=== PATIENT | male | born 1955 | race Caucasian/White ===

== ENCOUNTER 2019-07-07 19:57 | Emergency (ER) | payer MEDICARE, SELFPAY ==
--- NOTE | ~2019-07-07 | CT_ITS ---
EXAMINATION: CT abdomen pelvis wo con DATE: 07/07/2019 20:35 INDICATION: Right flank pain TECHNIQUE: Computed tomography (CT) of the abdomen and pelvis was performed without intravenous contr ast. The dose-length product (DLP) was 420.64 mGy-cm. Automated exposure control and iterative recons truction technique were employed. COMPARISON: 02/02/2019 FINDINGS: Minimal dependent atelectasis is present in the lung bases. The heart size is normal. The g allbladder is surgically absent. The liver, spleen, pancreas, and adrenal glands are normal. There is a 2.9 cm cyst of the left kidney upper pole. No stones are identified in the kidneys, ureters, or bl adder. There is no hydronephrosis or hydroureter. A moderate volume of colonic stool is present. No p athologically enlarged abdominal or pelvic lymph nodes are identified. There is no free intraperitone al gas or evidence of bowel obstruction. There has been revision of the penile implant with the reser voir now seen in the left pelvis. There is severe lumbar spondylosis. The appendix is normal. IMPRESSION: 1. No CT correlate for the patient's symptoms. Reviewed, dictated and finalized at location A.
[2019-07-07 19:58] VITALS: BP 143/81; PULSE 89; RESP 18; TEMP 36.3; O2SAT 97
--- NOTE | 2019-07-07 20:00 | PC.NURSE ---
Patient taken to room 10 from triage, report to Ирина.
--- NOTE | 2019-07-07 20:05 | ED.BACK ---
HPI - Back Pain/Injury General Chief Complaint: Back Pain/Injury Stated Complaint: R flank pain Time Seen by Provider: 07/07/19 20:01 Source: patient and RN notes reviewed Mode of arrival: other Limitations: no limitations History of Present Illness HPI Narrative: Pt is a 64 y/o male who presents to the ED with c/o right flank pain that began 3-4 days ago. Pt states that his pain initially began as intermittent, but today his pain has been more constant. Pt denies having a hx of kidney stones and he denies having a similar episode. Pt is able to ambulate. Pt took Morphine 15 mg, but with no relief of his pain. He also denies his pain radiating to another location. Pt also reports dysuria, constipation, and diarrhea d/t his medication, but he denies fever, cough, chest congestion, chest pain, hematuria, vomiting, weakness, numbness, and testicular pain. MD elicited complaint: other (flank pain) Onset (ago): day(s) (3-4) Timing: constant (today) Location: right flank Radiation: none Relieving factors: none Associated symptoms: dysuria and other (diarrhea d/t his medication, constipation) Treatments prior to arrival: other medications (Morphine 15 mg) Related Data Home Medications Medication Instructions Recorded Confirmed cilostazol 100 mg PO BID 03/09/19 03/30/19 morphine 15 mg PO QID 03/09/19 03/30/19 Allergies Allergy/AdvReac Type Severity Reaction Status Date / Time bee venom protein (honey bee) Allergy Unknown Nausea and Verified 07/07/19 20:05 Vomiting iodine Allergy Unknown FACIAL Verified 07/07/19 20:05 SWELLING,ITCHING Contrast Media Allergy Intermediate FACIAL Uncoded 07/07/19 20:05 SWELLING, ITCHING, AND REDNESS Review of Systems Review of Systems: Narrative: CONSTITUTIONAL: Denies fever. CARDIOVASCULAR: Denies chest pain. RESPIRATORY: Denies cough and chest congestion. GASTROINTESTINAL: Reports constipation and diarrhea d/t his medication. Denies vomiting. GENITOURINARY: Reports dysuria and right flank pain. Denies hematuria and testicular pain. NEUROLOGIC: Denies numbness and weakness. All systems reviewed & are unremarkable except as noted in HPI and below PMFSH Past Medical History Medical History (Updated 07/07/19 @ 22:07 by Karo Braga MD) Anxiety Bronchitis Cataracts, bilateral CVA (cerebrovascular accident) DDD (degenerative disc disease) Depression Diverticulitis GERD (gastroesophageal reflux disease) H/O prostate cancer Hiatal hernia HLD (hyperlipidemia) Hypertension Lesion of ureter Lumbar stenosis Lumbar vertebral fracture Melena Migraines Neuropathy Normal colonoscopy (~2009) Pacemaker Peripheral neuropathy Pneumonia Right wrist fracture Seasonal allergies Sleep apnea Ulcer UTI (urinary tract infection) Surgical History Surgical History (Updated 07/07/19 @ 20:28 by Rena Hernandez) H/O right knee surgery H/O spinal fusion C4-C7-T1 History of appendectomy History of orthopedic surgery cleft hand, bilateral shoulder, left 3rd finger, jaw History of penile implant History of repair of hiatal hernia Hx of cholecystectomy Hx of tonsillectomy Knee joint replacement status S/P TURP (transurethral resection of prostate) Social History Social History Smoking status: Former smoker (1ppd for 20 years stopped 2009.) Tobacco type: cigarettes Second hand tobacco smoke exposure: Yes Smoking end date: 04/05/06 Alcohol intake: never Substance use: never Gender identity (if verbalized by the patient): Male Spiritual care concerns: No Agree to blood products: No Exam Narrative: Exam Narrative: CONSTITUTIONAL: Awake, alert, conservant EYES: Normocephalic, atraumatic. ENT: EOMI, conjunctiva clear CARDIOVASCULAR: Nares patent. Mucous membranes moist. NECK: Full range of motion RESPIRATORY: No respiratory distress, speaking in full sentences, no tachypnea HEART: Regular rat
[2019-07-07 20:06] VITALS: BP 148/78; PULSE 89; RESP 19; TEMP 36.4; O2SAT 98
[2019-07-07] MEDS: MORPHINE SULFATE 4 MG/ML INJ IV PUSH ×2 (20:19→21:17)
[2019-07-07] MEDS: ONDANSETRON INJ 4 MG/2 ML VIAL IV PUSH (20:19)
[2019-07-07] MEDS: SODIUM CHLORIDE 0.9% IV 1,000 ML 999 ML IV CONT (20:20)
[2019-07-07 20:21] LABS: Basophils Absolute Auto 0.1 K/mm3 (0.0-0.1); Basophils Percent Auto 1.1 % (0.2-1.2); Eosinophils Absolute Auto 0.2 K/mm3 (0-0.3); Eosinophils Percent Auto 2.2 % (0-4.4); Hematocrit 41.8 % (42.0-52.0); Hemoglobin 13.7 g/dL (14.0-18.0); Immature Granulocyte Absolute 0.06 K/mm3 (0.00-0.031); Immature Granulocyte Percent A 0.7 % (0-0.5); Lymphocytes Absolute Auto 1.84 K/mm3 (0.9-3.2); Lymphocytes Percent Auto 21.7 % (18.3-44.2); Mean Corpuscular HGB Conc 32.8 g/dl (32-36); Mean Corpuscular Hemoglobin 30.6 pg (26-34); Mean Corpuscular Volume 93.5 fl (80-100); Mean Platelet Volume 10.7 fl (7.4-10.4); Monocytes Absolute Auto 0.8 K/mm3 (0.1-0.6); Monocytes Percent Auto 9.2 % (2.6-8.5); Neutrophils Absolute Auto 5.5 K/mm3 (1.3-6.7); Neutrophils Percent Auto 65.1 % (45.5-73.1); Platelet Count Result 175 k/mm3 (150-375); Red Blood Count 4.47 M/mm3 (4.6-6.20); Red Cell Distribution Width 13.8 % (11.5-14.5); White Blood Count 8.5 K/mm3 (4.5-10.0)
[2019-07-07 20:25] LABS: RBC Urine 0-2 /hpf (0-2); Squamous Epithelial Cell Urine Occasional /hpf (Few); WBC Urine 0-3 /hpf
[2019-07-07 20:26] LABS: Add Urine Microscopic? YES; Appearance Urine Clear (Clear); Bilirubin Urine Negative (Negative); Blood Urine Negative (Negative); Color Urine Yellow (Yellow); Glucose Urine UA Negative (Negative); Ketones Urine Negative (Negative); Leukocyte Esterase Ur Negative LEU/UL (Negative); Nitrate Urine Negative (Negative); Protein Urine Negative (Negative); Specific Grav Ur 1.012 (1.001-1.035)
[2019-07-07 20:33] LABS: Alanine Aminotransferase 24 U/L (4-50); Albumin Level 4.1 g/dL (3.5-5.1); Alkaline Phosphatase 75 U/L (38-126); Aspartate Amino Transferase 26 U/L (17-59); Bilirubin,Total 0.3 mg/dL (0.2-1.3); Blood Urea Nitrogen 13 mg/dL (9-20); Carbon Dioxide 33 mmol/L (22-30); Chloride 102 mmol/L (98-107); Estimated CRCL calculation 65 ml/min; Estimated Glomerular Filt Rate > 60; Glucose 91 mg/dL (75-110); Lipase 115 U/L (23-300); Potassium 3.8 mmol/L (3.4-5.0); Sodium 137 mmol/L (137-145)
[2019-07-07 21:17] VITALS: BP 122/78; PULSE 77; RESP 18; O2SAT 99
== END 2019-07-07 22:15 | disposition home or self-care (01) ==
PROVIDERS: Emergency Provider Emergency Medicine; PCP Family Medicine
DX: S39.012A Strain of muscle, fascia and tendon of lower back, initial encounter (principal); Z86.73 Personal history of transient ischemic attack (TIA), and cerebral infarction without residual deficits; K21.9 Gastro-esophageal reflux disease without esophagitis; Z85.46 Personal history of malignant neoplasm of prostate; E78.5 Hyperlipidemia, unspecified; I10 Essential (primary) hypertension; Z95.0 Presence of cardiac pacemaker; G62.9 Polyneuropathy, unspecified; Z87.440 Personal history of urinary (tract) infections; G47.30 Sleep apnea, unspecified; Z98.1 Arthrodesis status; Z96.659 Presence of unspecified artificial knee joint; Z87.891 Personal history of nicotine dependence; X58.XXXA Exposure to other specified factors, initial encounter
CPT/HCPCS: 36415; 74176; 80053; 81001; 83690; 85025; 96361; 96374; 96375; 96376; 99284; J0131; J2270; J2405; J7030

== ENCOUNTER 2019-08-23 11:45 | Outpatient (CLI) | payer MEDICARE, SELFPAY ==
--- NOTE | ~2019-08-23 | XR_ITS ---
EXAMINATION: XR knee LT 3V DATE: 08/23/2019 12:08 INDICATION: Left knee pain post fall TECHNIQUE: Anteroposterior, sunrise and crosstable lateral views of the left knee were obtained COMPARISON: None. FINDINGS: Alignment is normal. No fracture. Joint spaces appear normal. No joint effusion/layering lipohemarth rosis. Enthesophyte at the proximal pole of the patella. Soft tissues are unremarkable. IMPRESSION: 1. No left knee joint effusion or acute osseous abnormality. Reviewed, dictated and finalized at location A.
--- NOTE | ~2019-08-23 | XR_ITS ---
EXAMINATION: XR lumbar spine 2-3V DATE: 08/23/2019 12:08 INDICATION: Low back pain TECHNIQUE: Anteroposterior and lateral views of the lumbar spine, and cone-down lateral view of the l umbosacral junction were obtained. COMPARISON: 07/12/2017 FINDINGS: There is unchanged severe loss of intervertebral disc space height at L4-5 and L5-S1. No fr acture is identified. The vertebral body heights and alignment are maintained. There is advanced face t osteoarthritis of the lower lumbar spine. Phleboliths are noted in the pelvis. The bowel gas patter n is normal. Cholecystectomy clips are noted in the right upper quadrant. Penile implant hardware is noted. IMPRESSION: 1. Severe lumbar spondylosis without acute findings or significant interval change. Reviewed, dictated and finalized at location A. IMPRESSION: 1. Severe lumbar spondylosis without acute findings or significant interval clinton nge.
--- NOTE | ~2019-08-23 | XR_ITS ---
EXAMINATION: XR hip LT 2V w AP pelvis DATE: 08/23/2019 12:08 INDICATION: Left hip pain post fall TECHNIQUE: Anteroposterior view of the pelvis and anteroposterior and frog-leg lateral views of the l eft hip were obtained. COMPARISON: None. FINDINGS: Alignment is normal. No fracture. Bilateral hip joint spaces are relatively preserved. Mild bilateral sacroiliac osteoarthritis. Severe lower lumbar spondylosis. Penile implant. IMPRESSION: 1. No acute osseous abnormality. Reviewed, dictated and finalized at location A.
== END 2019-08-23 11:46 | disposition home or self-care (01) ==
LOC: ANHIMG 11:49
PROVIDERS: PCP Family Medicine; Visit Provider Physician Assistant
DX: M54.5 Low back pain (principal); M47.896 Other spondylosis, lumbar region
CPT/HCPCS: 72100; 73502; 73562

== ENCOUNTER 2019-10-30 09:10 | Emergency (ER) | payer MEDICARE, SELFPAY ==
--- NOTE | ~2019-10-30 | CT_ITS ---
EXAMINATION: CT abdomen pelvis wo con DATE: 10/30/2019 10:44 INDICATION: Constipation. Chronic abdominal pain. TECHNIQUE: Computed tomography (CT) of the abdomen and pelvis was performed without intravenous contr ast. Automated exposure control and iterative reconstruction technique were employed. The dose-length product was 362.70 mGy-cm. COMPARISON: CT abdomen and pelvis 07/07/2019 FINDINGS: The visualized portions of the lung bases demonstrate mild atelectasis and mild bronchiecta sis. No pleural effusion. The heart size is normal. There are coronary artery calcifications. There a re pacer wires in right atrium and right ventricle. No pericardial effusion. There is a 6 mm cyst in the liver. There are changes of cholecystectomy. The spleen, pancreas, adrenal glands, and right kidn ey are normal. There is a 2.3 cm cyst in left kidney. There is no urolithiasis. A penile prosthesis i s noted. There is diverticulosis of the colon without evidence of diverticulitis. There are no dilate d loops of bowel. The appendix is normal. There are no pathologically enlarged lymph nodes. There is no free intraperitoneal fluid. There is lumbar dextroscoliosis and severe lower lumbar spondylosis. T here are bridging endplate osteophytes at multiple levels in the spine, consistent with diffuse idiop athic skeletal hyperostosis (DISH). IMPRESSION: 1. No etiology for the patient's symptoms. Reviewed, dictated and finalized at location A.
[2019-10-30 09:37] VITALS: BP 106/65; PULSE 97; RESP 16; TEMP 36.6; O2SAT 100
[2019-10-30 09:42] VITALS: BP 113/78; PULSE 75; RESP 16; O2SAT 100
[2019-10-30 09:45] LABS: Basophils Absolute Auto 0.1 K/mm3 (0.0-0.1); Basophils Percent Auto 1.4 % (0.2-1.2); Eosinophils Absolute Auto 0.1 K/mm3 (0-0.3); Eosinophils Percent Auto 0.7 % (0-4.4); Hematocrit 43.6 % (42.0-52.0); Hemoglobin 14.4 g/dL (14.0-18.0); Immature Granulocyte Absolute 0.03 K/mm3 (0.00-0.031); Immature Granulocyte Percent A 0.4 % (0-0.5); Lymphocytes Absolute Auto 1.05 K/mm3 (0.9-3.2); Lymphocytes Percent Auto 14.4 % (18.3-44.2); Mean Corpuscular Hemoglobin 30.3 pg (26-34); Mean Corpuscular Volume 91.8 fl (80-100); Mean Platelet Volume 10.9 fl (7.4-10.4); Monocytes Absolute Auto 0.4 K/mm3 (0.1-0.6); Monocytes Percent Auto 4.8 % (2.6-8.5); Neutrophils Absolute Auto 5.7 K/mm3 (1.3-6.7); Neutrophils Percent Auto 78.3 % (45.5-73.1); Platelet Count Result 187 k/mm3 (150-375); Red Blood Count 4.75 M/mm3 (4.6-6.20); Red Cell Distribution Width 14.3 % (11.5-14.5); White Blood Count 7.3 K/mm3 (4.5-10.0)
[2019-10-30 09:58] LABS: Alanine Aminotransferase 12 U/L (4-50); Albumin Level 3.9 g/dL (3.5-5.1); Alkaline Phosphatase 87 U/L (38-126); Anion Gap 11.9 mmol/L (7-16); Aspartate Amino Transferase 26 U/L (17-59); Bilirubin,Total 0.5 mg/dL (0.2-1.3); Blood Urea Nitrogen 9 mg/dL (9-20); Calcium 8.5 mg/dL (8.4-10.2); Carbon Dioxide 25 mmol/L (22-30); Chloride 101 mmol/L (98-107); Estimated CRCL calculation 73 ml/min; Estimated Glomerular Filt Rate > 60; Glucose 107 mg/dL (75-110); Lipase 35 U/L (23-300); Potassium 3.9 mmol/L (3.4-5.0); Sodium 134 mmol/L (137-145)
[2019-10-30 10:04] LABS: Add Urine Microscopic? NO; Appearance Urine Clear (Clear); Bilirubin Urine Negative (Negative); Blood Urine Negative (Negative); Color Urine Yellow (Yellow); Glucose Urine UA Negative (Negative); Ketones Urine Negative (Negative); Leukocyte Esterase Ur Negative LEU/UL (Negative); Nitrate Urine Negative (Negative); Protein Urine Negative (Negative); Specific Grav Ur 1.013 (1.001-1.035); Urobilinogen Urine Negative mg/dL (<2.0)
[2019-10-30 10:30] VITALS: PULSE 107; RESP 18; O2SAT 94
--- NOTE | 2019-10-30 10:35 | ED.ABDPAIN ---
HPI - Abdominal Pain General Chief Complaint: Abdominal Pain Stated Complaint: CONSTIPATED Time Seen by Provider: 10/30/19 10:03 History of Present Illness HPI narrative: Patient presents with his for left lower abdominal pain. She has had this for several days. He thinks he has a bowel obstruction. He takes chronic narcotics for his chronic pain, and has had severe constipation in the past. He has been taking [id number] laxatives without improvement. He says he has some liquid stool. He has no fever chills or sweats. He has not been sick. He has no nausea or vomiting. He has not tried MiraLAX in the past. He has a surgical history of multiple cervical fusions, and cholecystectomy. He does not smoke cigarettes, drink alcohol, or do drugs. MD elicited complaint: abdominal pain Pertinent past history: constipation Onset (ago): day(s) Pain Consistency: intermittent Location: RLQ Exacerbating factors: nothing Relieving factors: nothing Related Data Home Medications Medication Instructions Recorded Confirmed cilostazol 100 mg PO BID 03/09/19 09/14/19 morphine 15 mg PO QID 03/09/19 09/14/19 Allergies Allergy/AdvReac Type Severity Reaction Status Date / Time bee venom protein (honey bee) Allergy Unknown Nausea and Verified 10/30/19 09:36 Vomiting iodine Allergy Unknown FACIAL Verified 10/30/19 09:36 SWELLING,ITCHING Contrast Media Allergy Intermediate FACIAL Uncoded 10/30/19 09:36 SWELLING, ITCHING, AND REDNESS Review of Systems Review of Systems: Narrative: CONSTITUTIONAL: Denies fever, chills, or sweats. EYES: Denies visual changes, redness, or discharge. ENT: Denies rhinorrhea, congestion, sore throat, or otalgia. CARDIOVASCULAR: Denies chest pain, palpitations, or edema. RESPIRATORY: Denies cough or dyspnea. GASTROINTESTINAL: He has abdominal pain, but not nausea, vomiting. GENITOURINARY: Denies dysuria or hematuria. SKIN: Denies rash or itching. MUSCULOSKELETAL: Denies back pain, joint pain, or myalgia. NEUROLOGIC: Denies headache, numbness, or weakness. PSYCHIATRIC: Denies anxiety or depression. All systems reviewed & are unremarkable except as noted in HPI and below PMFSH Past Medical History Medical History Anxiety Bronchitis Cataracts, bilateral CVA (cerebrovascular accident) DDD (degenerative disc disease) Depression Diverticulitis Fall (on) (from) other stairs and steps, initial encounter GERD (gastroesophageal reflux disease) H/O non anemic vitamin B12 deficiency H/O prostate cancer Hiatal hernia HLD (hyperlipidemia) Hypertension Lesion of ureter Lumbar stenosis Lumbar vertebral fracture Melena Migraines Neuropathy Normal colonoscopy (~2009) Osteoporosis Pacemaker Peripheral neuropathy Pneumonia Right wrist fracture Seasonal allergies Sleep apnea Ulcer UTI (urinary tract infection) Vision abnormalities Surgical History Surgical History H/O right knee surgery H/O spinal fusion C4-C7-T1 History of appendectomy History of orthopedic surgery cleft hand, bilateral shoulder, left 3rd finger, jaw History of penile implant History of repair of hiatal hernia Hx of cholecystectomy Hx of tonsillectomy Knee joint replacement status S/P TURP (transurethral resection of prostate) Social History Social History Smoking status: Former smoker (1ppd for 20 years stopped 2009.) Tobacco type: cigarettes Second hand tobacco smoke exposure: Yes Smoking end date: 04/05/06 Alcohol intake: never Substance use: never Gender identity (if verbalized by the patient): Male Spiritual care concerns: No Agree to blood products: No Exam Narrative: Exam Narrative: GENERAL: Elderly man in no distress. HEAD: Normocephalic, atraumatic. EYES: PERRLA and EOMI. ENT: Nares clear, no rhinorrhea or epistax
--- NOTE | 2019-10-30 10:38 | PC.NURSE ---
ATTEMPTED TO MEDICATE PT PRIOR TO CT SCAN, PT STATES THAT HE WANTS THE CT SCAN FIRST AND WILL TAKE THE MEDICINE UPON HIS RETURN, [employer] AT BEDSIDE, PT TO CT IN STRETCHER AT THIS TIME.
[2019-10-30] MEDS: MAGNESIUM CITRATE 300 ML BTL PO (10:53)
[2019-10-30] MEDS: KETOROLAC 15 MG/ML VIAL (*BKC) IV PUSH (10:55)
[2019-10-30 11:19] VITALS: BP 138/86; PULSE 96; RESP 17; O2SAT 99
== END 2019-10-30 11:20 | disposition home or self-care (01) ==
PROVIDERS: Emergency Provider Emergency Medicine; PCP Family Medicine
DX: K59.09 Other constipation (principal); Z86.73 Personal history of transient ischemic attack (TIA), and cerebral infarction without residual deficits; K21.9 Gastro-esophageal reflux disease without esophagitis; Z85.46 Personal history of malignant neoplasm of prostate; E53.8 Deficiency of other specified B group vitamins; E78.5 Hyperlipidemia, unspecified; I10 Essential (primary) hypertension; G62.9 Polyneuropathy, unspecified; G47.30 Sleep apnea, unspecified; Z87.440 Personal history of urinary (tract) infections; Z98.1 Arthrodesis status; Z96.659 Presence of unspecified artificial knee joint; Z87.891 Personal history of nicotine dependence
CPT/HCPCS: 36415; 74176; 80053; 81003; 83690; 85025; 96374; 99284; A9270; J1885

== ENCOUNTER 2019-12-08 16:50 | Emergency (ER) | payer MEDICARE, SELFPAY ==
--- NOTE | ~2019-12-08 | XR_ITS ---
XR knee RT 3V DATE: 12/08/2019 18:51 INDICATION: Fall. Medial pain, posterior bruising TECHNIQUE: 3 portable views COMPARISON: None FINDINGS: No fracture or dislocation or joint effusion. There is enthesopathy of the superior pole of the patella at the quadriceps tendon insertion. No radiopaque intra-articular loose body or chondrocalcinosis. Joint spaces are well preserved. IMPRESSION: No fracture or dislocation or joint effusion Reviewed, dictated and finalized at location A.
--- NOTE | ~2019-12-08 | CT_ITS ---
EXAMINATION: CT brain wo con DATE: 12/08/2019 18:00 INDICATION: Syncopal episode today TECHNIQUE: Computed tomography (CT) of the head was performed without intravenous contrast. The mA wa s adjusted according to patient size. Iterative reconstruction technique was employed. Exam dose: 60 5.33 mGy-cm total exam DLP. COMPARISON: 12/23/2018 CT brain FINDINGS: The examination is limited due to motion artifact. Bilateral carotid siphon internal carotid artery calcifications. No intracranial mass lesion or hemorrhage or cerebrovascular accident is evident. No midline shift or mass effect. No subdural or epidural hematoma. Normal ventricular size. No fracture or bone destruction of the cranial vault. Mucous retention cyst or polyp of the anterolateral right maxillary sinus. The paranasal sinuses and mastoid air cells are otherwise unremarkable. No fracture or bone destruction of the cranial vault. IMPRESSION: Cerebral atherosclerosis No acute intracranial finding Reviewed, dictated and finalized at Location A. Reviewed, dictated and finalized at location A.
--- NOTE | ~2019-12-08 | XR_ITS ---
XR chest 1V portable DATE: 12/08/2019 18:05 INDICATION: Syncopal event. Hypertension. TECHNIQUE: AP chest COMPARISON: 12/24/2018 PA and lateral chest FINDINGS: Left-sided pacemaker device is again noted, leads unchanged in position since 12/24/2018. He art size is within normal range. Aortic arch calcification, calcification of the descending thoracic aorta. No pulmonary infiltrate or consolidation, pleural effusion or pulmonary vascular congestion or pneumo thorax. Status post anterior and posterior cervical spine surgical fusion. There is moderate osteopenia. Diffuse idiopathic skeletal hyperostosis of the thoracic spine. Surgical clips, right upper quadrant, consistent with cholecystectomy. IMPRESSION: No active cardiopulmonary disease. Reviewed, dictated and finalized at location A.
--- NOTE | 2019-12-08 16:52 | ECG_ITS ---
Measurements Intervals [place] Rate: 108 P: 40 AR: 181 QRS: -5 QRSD: 86 T: 47 QT: 323 QTc: 433 Interpretive Statements SINUS TACHYCARDIA ABNORMAL ECG Electronically Signed On 12-09-2019 6:43:18 CDT by Wenceslao Ellsworth D.O.
[2019-12-08 16:53] VITALS: BP 111/69; PULSE 108; RESP 21; TEMP 36.7; O2SAT 99
[2019-12-08 17:23] LABS: Alveolar/Arterial O2 Gradient 38.2 mmHg; Base Excess ABG 0.4 mEq/l (+/-2.0); Fractional Inspired Oxygen 21 %; HCO3 ABG 24.7 mEq/l (22.0-26.0); Oxygen Content ABG 15.9 %vol (16.0-22.0); Oxygen Saturation ABG 93.3 % (95.0-100.0); Oxyhemoglobin 88.1 % THb (90.0-100.0); PCO2 ABG 38.7 mmHg (35.0-45.0); PO2 ABG 65.2 mmHg (80.0-100.0); Total Hemoglobin 12.8 g/dL (12.0-18.0); pH ABG 7.423 (7.350-7.450)
[2019-12-08 17:24] LABS: Device ROOM AIR; Site Drawn LEFT BRACHIAL
[2019-12-08 17:42] LABS: Basophils Absolute Auto 0.1 K/mm3 (0.0-0.1); Basophils Percent Auto 1.2 % (0.2-1.2); Eosinophils Absolute Auto 0.6 K/mm3 (0-0.3); Eosinophils Percent Auto 5.3 % (0-4.4); Hematocrit 35.5 % (42.0-52.0); Hemoglobin 11.9 g/dL (14.0-18.0); Immature Granulocyte Absolute 0.07 K/mm3 (0.00-0.031); Immature Granulocyte Percent A 0.7 % (0-0.5); Lymphocytes Absolute Auto 1.35 K/mm3 (0.9-3.2); Lymphocytes Percent Auto 12.8 % (18.3-44.2); Mean Corpuscular HGB Conc 33.5 g/dl (32-36); Mean Corpuscular Hemoglobin 30.7 pg (26-34); Mean Corpuscular Volume 91.5 fl (80-100); Mean Platelet Volume 9.9 fl (7.4-10.4); Monocytes Absolute Auto 0.9 K/mm3 (0.1-0.6); Monocytes Percent Auto 8.7 % (2.6-8.5); Neutrophils Absolute Auto 7.5 K/mm3 (1.3-6.7); Neutrophils Percent Auto 71.3 % (45.5-73.1); Platelet Count Result 262 k/mm3 (150-375); Red Blood Count 3.88 M/mm3 (4.6-6.20); Red Cell Distribution Width 13.7 % (11.5-14.5); White Blood Count 10.6 K/mm3 (4.5-10.0)
[2019-12-08 17:44] LABS: Add Urine Microscopic? NO; Appearance Urine Clear (Clear); Bilirubin Urine Negative (Negative); Blood Urine Negative (Negative); Color Urine Straw (Yellow); Glucose Urine UA Negative (Negative); Ketones Urine Negative (Negative); Leukocyte Esterase Ur Negative LEU/UL (Negative); Nitrate Urine Negative (Negative); Protein Urine Negative (Negative); Urobilinogen Urine Negative mg/dL (<2.0)
[2019-12-08 17:54] LABS: Partial Thromboplastin Time 32.5 SECONDS (22.3-36.8); Prothrombin Time 13.3 Seconds (11.1-14.7)
[2019-12-08 17:55] LABS: Specific Grav Ur 1.004 (1.001-1.035)
[2019-12-08 17:59] VITALS: PULSE 112
[2019-12-08 18:00] VITALS: BP 142/90; PULSE 88; RESP 16; O2SAT 97
[2019-12-08 18:00] LABS: Alanine Aminotransferase 9 U/L (4-50); Albumin Level 3.3 g/dL (3.5-5.1); Alkaline Phosphatase 75 U/L (38-126); Anion Gap 7 mmol/L (8-16); Aspartate Amino Transferase 18 U/L (17-59); Blood Urea Nitrogen 10 mg/dL (9-20); Calcium 8.1 mg/dL (8.4-10.2); Carbon Dioxide 27 mmol/L (22-30); Chloride 101 mmol/L (98-107); Estimated CRCL calculation 66 ml/min; Estimated Glomerular Filt Rate > 60; Glucose 90 mg/dL (75-110); Magnesium 2.1 mg/dL (1.6-2.3); Potassium 3.7 mmol/L (3.4-5.0); Sodium 135 mmol/L (137-145)
[2019-12-08 18:08] LABS: Troponin I < 0.012 ng/mL (0.000-0.034)
--- NOTE | 2019-12-08 18:30 | ED.SYNCOPE ---
HPI - Syncope General Chief Complaint: Syncope Stated Complaint: SYNCOPE Source: patient, family and EMS Mode of arrival: EMS Limitations: no limitations History of Present Illness HPI narrative: 64 years old white male presents to the ED because of syncope. Patient reported stenting urinating, straining then lost consciousness fell backward, hit the back of the head on the wall, complaining of right knee pain. Patient had at least 10-11 similar syncope while standing to urinate in the past. The reason of coming to the emergency room today because he had lower back surgery 1 week ago and his want to make sure that the fall did not hurt his lower back. Patient denies any new pain at the lower back after the fall compared to before the fall. Patient does not take blood thinner. Related Data Home Medications Medication Instructions Recorded Confirmed cilostazol 100 mg PO BID 03/09/19 09/14/19 morphine 15 mg PO QID 03/09/19 09/14/19 Allergies Allergy/AdvReac Type Severity Reaction Status Date / Time bee venom protein (honey bee) Allergy Unknown Nausea and Verified 11/07/19 11:18 Vomiting iodine Allergy Unknown FACIAL Verified 11/07/19 11:18 SWELLING,ITCHING Contrast Media Allergy Intermediate FACIAL Uncoded 10/30/19 09:36 SWELLING, ITCHING, AND REDNESS Review of Systems Review of Systems: Narrative: CONSTITUTIONAL: Denies fever, chills, or sweats. EYES: Denies visual changes, redness, or discharge. ENT: Denies rhinorrhea, congestion, sore throat, or otalgia. CARDIOVASCULAR: Denies chest pain, palpitations, or edema. RESPIRATORY: Denies cough or dyspnea. GASTROINTESTINAL: Denies abdominal pain, nausea, vomiting, or diarrhea. GENITOURINARY: Denies dysuria or hematuria. SKIN: Denies rash or itching. MUSCULOSKELETAL: Denies back pain, joint pain, or myalgia. NEUROLOGIC: Denies headache, numbness, or weakness. PSYCHIATRIC: Denies anxiety or depression. [facility] Past Medical History Medical History Anxiety Bronchitis Cataracts, bilateral CVA (cerebrovascular accident) DDD (degenerative disc disease) Depression Diverticulitis Fall (on) (from) other stairs and steps, initial encounter GERD (gastroesophageal reflux disease) H/O non anemic vitamin B12 deficiency H/O prostate cancer Hiatal hernia HLD (hyperlipidemia) Hypertension Lesion of ureter Lumbar stenosis Lumbar vertebral fracture Melena Migraines Neuropathy Normal colonoscopy (~2009) Osteoporosis Pacemaker Peripheral neuropathy Pneumonia Right wrist fracture Seasonal allergies Sleep apnea Ulcer UTI (urinary tract infection) Vision abnormalities Surgical History Surgical History H/O right knee surgery H/O spinal fusion C4-C7-T1 History of appendectomy History of orthopedic surgery cleft hand, bilateral shoulder, left 3rd finger, jaw History of penile implant History of repair of hiatal hernia Hx of cholecystectomy Hx of tonsillectomy Knee joint replacement status S/P TURP (transurethral resection of prostate) Family History Family History Father Family history of coronary artery disease Mother Family history of coronary artery disease Other Cerebrovascular accident Diabetes mellitus Family history of cardiovascular disease Hypertension Social History Social History Smoking status: Former smoker (1ppd for 20 years stopped 2009.) Tobacco type: cigarettes Second hand tobacco smoke exposure: Yes Smoking end date: 04/05/06 Alcohol intake: never Substance use: never Gender identity (if verbalized by the patient): Male Spiritual care concerns: No Agree to blood products: No Exam Narrative: Exam Narrative: General appearance: Well-developed, well-nourished Skin: Normal color Head: Normo
[2019-12-08 18:48] LABS: Bilirubin,Total 0.3 mg/dL (0.2-1.3)
[2019-12-08] MEDS: ONDANSETRON INJ 4 MG/2 ML VIAL IV PUSH (18:51)
[2019-12-08] MEDS: MORPHINE SULFATE 4 MG/ML INJ IV PUSH (18:51)
[2019-12-08 18:53] VITALS: BP 130/82; PULSE 88; RESP 16; O2SAT 98
[2019-12-08 19:12] VITALS: BP 121/77; PULSE 88; RESP 17; O2SAT 98
== END 2019-12-08 19:19 | disposition home or self-care (01) ==
PROVIDERS: Emergency Provider Emergency Medicine; PCP Family Medicine
DX: R55 Syncope and collapse (principal); S83.91XA Sprain of unspecified site of right knee, initial encounter; K21.9 Gastro-esophageal reflux disease without esophagitis; Z85.46 Personal history of malignant neoplasm of prostate; E78.5 Hyperlipidemia, unspecified; G62.9 Polyneuropathy, unspecified; Z95.0 Presence of cardiac pacemaker; G47.30 Sleep apnea, unspecified; F32.9 Major depressive disorder, single episode, unspecified; F41.9 Anxiety disorder, unspecified; Z87.440 Personal history of urinary (tract) infections; Z98.1 Arthrodesis status; Z96.659 Presence of unspecified artificial knee joint; Z87.891 Personal history of nicotine dependence; Z86.73 Personal history of transient ischemic attack (TIA), and cerebral infarction without residual deficits; W18.39XA Other fall on same level, initial encounter
CPT/HCPCS: 36415; 36600; 70450; 71045; 73562; 80053; 81003; 82805; 83735; 84484; 85025; 85610; 85730; 93005; 96374; 96375; 99284; J2270; J2405

== ENCOUNTER 2020-01-20 10:03 | Emergency (ER) | payer MEDICARE, SELFPAY ==
[2020-01-20] VITALS (7 sets, daily range): BP systolic 104–147; BP diastolic 81–95; PULSE 63–71; RESP 16–20; TEMP 36.1; O2SAT 93–100
--- NOTE | ~2020-01-20 | CT_ITS ---
EXAMINATION: CT lumbar spine wo con DATE: 01/20/2020 11:37 INDICATION: Left-sided low back pain. TECHNIQUE: Computed tomography (CT) of the lumbar spine was performed without intravenous contrast. A utomated exposure control and iterative reconstruction technique were employed. The dose-length produ ct was 585.53 mGy-cm. COMPARISON: CT lumbar spine 04/24/2014 FINDINGS: There are changes of cholecystectomy. Partially visualized is a penile prosthesis. There is 9 degrees dextrocurvature of lumbar spine. Vertebral body heights are normal. There is mildly decrea sed disc height from L1-L2 through L3-L4 and severely decreased disc height at L4-L5 and L5-S1. The f ollowing disc levels are specifically discussed: L1-L2: The disc does not extend beyond the endplate margin. There is mild bilateral facet joint osteo arthritis. There is no neural foraminal stenosis. There is no central canal stenosis. L2-L3: The disc is bulging. There is mild bilateral facet joint osteoarthritis. There is mild bilater al neural foraminal stenosis. There is no central canal stenosis. L3-L4: The disc is bulging. There is mild bilateral facet joint osteoarthritis. There is mild bilater al neural foraminal stenosis. There is mild central canal stenosis. L4-L5: The disc is bulging. There is moderate bilateral facet joint osteoarthritis. There is moderate bilateral neural foraminal stenosis. There is mild central canal stenosis with posterior decompressi on. L5-S1: The disc is bulging. There is moderate right and severe left facet joint osteoarthritis. There is moderate bilateral neural foraminal stenosis. There is mild central canal stenosis with posterior decompression. IMPRESSION: 1. Severe lumbar spondylosis with interval posterior decompression in lower lumbar spine. Reviewed, dictated and finalized at location A. IMPRESSION: 1. Severe lumbar spondylosis with interval posterior decompression in lower lum bar spine.
[2020-01-20 10:34] LABS: Basophils Absolute Auto 0.1 K/mm3 (0.0-0.1); Basophils Percent Auto 1.1 % (0.2-1.2); Eosinophils Absolute Auto 0.1 K/mm3 (0-0.3); Eosinophils Percent Auto 1.9 % (0-4.4); Hematocrit 42.1 % (42.0-52.0); Hemoglobin 13.9 g/dL (14.0-18.0); Immature Granulocyte Absolute 0.03 K/mm3 (0.00-0.031); Immature Granulocyte Percent A 0.5 % (0-0.5); Lymphocytes Absolute Auto 1.22 K/mm3 (0.9-3.2); Lymphocytes Percent Auto 18.8 % (18.3-44.2); Mean Corpuscular Hemoglobin 30.7 pg (26-34); Mean Corpuscular Volume 92.9 fl (80-100); Mean Platelet Volume 10.7 fl (7.4-10.4); Monocytes Absolute Auto 0.5 K/mm3 (0.1-0.6); Monocytes Percent Auto 7.7 % (2.6-8.5); Neutrophils Absolute Auto 4.5 K/mm3 (1.3-6.7); Platelet Count Result 184 k/mm3 (150-375); Red Blood Count 4.53 M/mm3 (4.6-6.20); Red Cell Distribution Width 14.5 % (11.5-14.5); White Blood Count 6.5 K/mm3 (4.5-10.0)
[2020-01-20 10:46] LABS: Lactic Acid Reflex 0.7 mmol/L (0.7-2.1)
--- NOTE | 2020-01-20 10:50 | ED.BACK ---
HPI - Back Pain/Injury General Chief Complaint: Back Pain/Injury <Evita Hathaway PA-C - Last Filed: 01/20/20 12:02> Stated Complaint: sciatic pain L side <NOHEMI Jaramillo Last Filed: 01/20/20 12:02> Time Seen by Provider: 01/20/20 10:11 <Evita Hathaway PA-C - Last Filed: 01/20/20 12:02> Source: patient <NOHEMI Jaramillo Last Filed: 01/20/20 12:02> Mode of arrival: ambulatory <NOHEMI Jaramillo Last Filed: 01/20/20 12:02> Limitations: no limitations <NOHEMI Jaramillo Last Filed: 01/20/20 12:02> History of Present Illness HPI Narrative: This is a 64 year old male that presents to the ER for low back pain x 3 days. No known recent injury or trauma. Does report he recently had a lumbar laminectomy at [facility]. Reports increasing low back pain over the last couple of days that radiates down the left leg. He has taken his p.o. morphine at home with little relief. Denies fever, saddle anesthesia, or bowel/bladder incontinence. <NOHEMI Jaramillo Last Filed: 01/20/20 12:02> Related Data Home Medications: Home Medications Medication Instructions Recorded Confirmed cilostazol 100 mg PO BID 03/09/19 01/15/20 morphine 15 mg immediate release 15 mg PO .5 times daily tablet 12/14/19 01/15/20 tablet <NOHEMI Jaramillo Last Filed: 01/20/20 12:02> Allergies/Adverse Reactions: Allergies Allergy/AdvReac Type Severity Reaction Status Date / Time bee venom protein (honey bee) Allergy Unknown Nausea and Verified 01/20/20 10:20 Vomiting iodine Allergy Unknown FACIAL Verified 01/20/20 10:20 SWELLING,ITCHING Contrast Media Allergy Intermediate FACIAL Uncoded 01/20/20 10:20 SWELLING, ITCHING, AND REDNESS <NOHEMI Jaramillo Last Filed: 01/20/20 12:02> Review of Systems Review of Systems: Narrative: CONSTITUTIONAL: Denies fever GASTROINTESTINAL: Denies abdominal pain, nausea, vomiting GENITOURINARY: Denies dysuria or hematuria. SKIN: Denies rash MUSCULOSKELETAL: Reports back pain, joint pain, and myalgia. NEUROLOGIC: Denies numbness, or weakness. <Evita Hathaway PA-C - Last Filed: 01/20/20 12:02> All systems reviewed & are unremarkable except as noted in HPI and below <Evita Hathaway PA-C - Last Filed: 01/20/20 12:02> [facility] Past Medical History Medical History: Medical History Anxiety Arthritis Bronchitis Cataracts, bilateral CVA (cerebrovascular accident) DDD (degenerative disc disease) Depression Diverticulitis Fall (on) (from) other stairs and steps, initial encounter GERD (gastroesophageal reflux disease) H/O non anemic vitamin B12 deficiency H/O prostate cancer Hiatal hernia HLD (hyperlipidemia) Hypertension Lesion of ureter Lumbar stenosis Lumbar vertebral fracture Melena Migraines Neuropathy Normal colonoscopy (~2009) Osteoporosis Pacemaker Peripheral neuropathy Pneumonia Right wrist fracture Seasonal allergies Sleep apnea Ulcer UTI (urinary tract infection) Vision abnormalities <Evita Hathaway PA-C - Last Filed: 01/20/20 12:02> Surgical History Surgical History: Surgical History H/O right knee surgery H/O spinal fusion C4-C7-T1 History of appendectomy History of orthopedic surgery cleft hand, bilateral shoulder, left 3rd finger, jaw History of penile implant History of repair of hiatal hernia Hx of cholecystectomy Hx of tonsillectomy Knee joint replacement status S/P TURP (transurethral resection of prostate) <Evita Hathaway PA-C - Last Filed: 01/20/20 12:02> Family History Family History: Family History Father Family history of coronary artery disease Mother Family history of coronary artery disease Other Cerebrovascular accident Diabetes mellitus Family history of cardiovascula
[2020-01-20 10:51] LABS: Anion Gap 5 mmol/L (8-16); Blood Urea Nitrogen 7 mg/dL (9-20); Calcium 8.7 mg/dL (8.4-10.2); Carbon Dioxide 29 mmol/L (22-30); Chloride 104 mmol/L (98-107); Estimated CRCL calculation 73 ml/min; Estimated Glomerular Filt Rate > 60; Glucose 99 mg/dL (75-110); Potassium 4.1 mmol/L (3.4-5.0); Sodium 138 mmol/L (137-145)
[2020-01-20] MEDS: diazePAM INJ (*CRX) 10 MG/2 ML SYRINGE 5 MG IV PUSH (10:55)
[2020-01-20 11:07] LABS: CRP 0.6 mg/dL (<1.0)
[2020-01-20 11:17] LABS: Erythrocyte Sedimentation Rate 22 mm/hr (0-20)
== END 2020-01-20 12:20 | disposition home or self-care (01) ==
PROVIDERS: Physician Assistant; Emergency Provider General Practice; PCP Family Medicine
DX: M54.42 Lumbago with sciatica, left side (principal); M19.90 Unspecified osteoarthritis, unspecified site; Z86.73 Personal history of transient ischemic attack (TIA), and cerebral infarction without residual deficits; K21.9 Gastro-esophageal reflux disease without esophagitis; Z85.46 Personal history of malignant neoplasm of prostate; E53.8 Deficiency of other specified B group vitamins; E78.5 Hyperlipidemia, unspecified; I10 Essential (primary) hypertension; G62.9 Polyneuropathy, unspecified; G47.30 Sleep apnea, unspecified; Z87.440 Personal history of urinary (tract) infections; Z98.1 Arthrodesis status; Z96.659 Presence of unspecified artificial knee joint; Z87.891 Personal history of nicotine dependence; M47.816 Spondylosis without myelopathy or radiculopathy, lumbar region
CPT/HCPCS: 36415; 72131; 80048; 83605; 85025; 85652; 86140; 96365; 96375; 99284; J0131; J3360

== ENCOUNTER 2020-01-25 14:03 | Outpatient (CLI) | payer MEDICARE, SELFPAY ==
--- NOTE | ~2020-01-25 | CT_ITS ---
EXAMINATION: CT knee RT wo con DATE: 01/25/2020 14:29 INDICATION: Right knee pain. TECHNIQUE: Computed tomography (CT) of the right knee was performed without intravenous contrast. Aut omated exposure control and iterative reconstruction technique were employed. The dose-length product was 811.50 mGy-cm. COMPARISON: Right knee radiographs 01/15/2020 FINDINGS: There is mild motion artifact. Bone alignment is normal. No fracture. There are benign bone islands in distal femur and proximal tibia. There is mild osteoarthritis of medial and patellofemora l compartments characterized by tiny marginal osteophytes. No knee joint effusion. IMPRESSION: 1. Mild right knee osteoarthritis. Reviewed, dictated and finalized at location A.
== END 2020-01-25 14:04 | disposition home or self-care (01) ==
LOC: ANHIMG 14:10
PROVIDERS: PCP Family Medicine; Visit Provider Orthopaedic Surgery
DX: M25.561 Pain in right knee (principal); M17.11 Unilateral primary osteoarthritis, right knee
CPT/HCPCS: 73700

== ENCOUNTER 2020-06-10 10:44 | Outpatient (CLI) | payer MEDICARE, SELFPAY | END 2020-06-10 10:45 | disposition home or self-care (01) | LOC: ANHCOVIDVC 10:44 | PROVIDERS: PCP Family Medicine | DX: Z23 Encounter for immunization (principal) | CPT/HCPCS: 0001A; 91300 ==

== ENCOUNTER 2020-06-21 13:40 | Outpatient (CLI) | payer MEDICARE, SELFPAY ==
--- NOTE | ~2020-06-21 | CT_ITS ---
EXAMINATION: CT brain wo con DATE: 06/21/2020 14:34 INDICATION: Tremors. TECHNIQUE: Computed tomography (CT) of the head was performed without intravenous contrast. The mA wa s adjusted according to patient size. Iterative reconstruction technique was employed. The dose-lengt h product was 605.33 mGy-cm. COMPARISON: Head CT 12/08/2019 FINDINGS: There is no intracranial hemorrhage, acute infarction, or abnormal intracranial mass lesion . There are scattered areas of low attenuation in the cerebral white matter, which is within normal l imits for the patient's age. The ventricles are normal in size. There is mild mucosal thickening in the right maxillary sinus. The mastoid air cells are normal. The orbits are normal. IMPRESSION: 1. Normal aging brain. Reviewed, dictated and finalized at location A. IMPRESSION: 1. Normal aging brain.
[2020-06-21 15:19] LABS: Hematocrit 42.7 % (42.0-52.0); Mean Corpuscular HGB Conc 32.8 g/dl (32-36); Mean Corpuscular Hemoglobin 30.6 pg (26-34); Mean Corpuscular Volume 93.4 fl (80-100); Mean Platelet Volume 10.9 fl (7.4-10.4); Platelet Count Result 181 k/mm3 (150-375); Red Blood Count 4.57 M/mm3 (4.6-6.20); Red Cell Distribution Width 13.8 % (11.5-14.5); White Blood Count 5.2 K/mm3 (4.5-10.0)
[2020-06-21 15:36] LABS: Alanine Aminotransferase 9 U/L (4-50); Albumin Level 3.8 g/dL (3.5-5.1); Alkaline Phosphatase 72 U/L (38-126); Anion Gap 1 mmol/L (8-16); Aspartate Amino Transferase 20 U/L (17-59); Bilirubin,Total 0.3 mg/dL (0.2-1.3); Blood Urea Nitrogen 13 mg/dL (9-20); Calcium 8.7 mg/dL (8.4-10.2); Carbon Dioxide 35 mmol/L (22-30); Chloride 101 mmol/L (98-107); Estimated Glomerular Filt Rate > 60; Glucose 75 mg/dL (75-110); Potassium 4.2 mmol/L (3.4-5.0); Sodium 137 mmol/L (137-145)
[2020-06-21 16:30] LABS: Free T4 Free Thyroxine 0.81 ng/mL (0.78-2.19)
[2020-06-21 16:38] LABS: Folic Acid 7.5 ng/mL (2.76->20)
[2020-06-25 20:47] LABS: Albumin 3.8 g/dL (3.8-4.8); Alpha 1 Globulin 0.3 g/dL (0.2-0.3); Alpha 2 Globulin 0.8 g/dL (0.5-0.9); Beta 1 Globulin 0.5 g/dL (0.4-0.6); Gamma Globulin 0.8 g/dL (0.8-1.7); Protein, Total 6.6 g/dL (6.1-8.1)
[2020-06-26 20:06] LABS: Ceruloplasmin 41 mg/dL (18-36)
== END 2020-06-21 13:41 | disposition home or self-care (01) ==
LOC: ANHIMG 13:43
PROVIDERS: PCP Family Medicine; Visit Provider Psychiatry & Neurology Neurology
DX: R25.1 Tremor, unspecified (principal)
CPT/HCPCS: 36415; 70450; 80053; 82390; 82607; 82746; 84155; 84165; 84439; 85027; 86334

== ENCOUNTER 2020-07-01 10:37 | Outpatient (CLI) | payer MEDICARE, SELFPAY | END 2020-07-01 10:38 | disposition home or self-care (01) | LOC: ANHCOVIDVC 10:37 | PROVIDERS: PCP Family Medicine | DX: Z23 Encounter for immunization (principal) | CPT/HCPCS: 0002A; 91300 ==

== ENCOUNTER 2020-11-01 20:23 | Emergency (ER) | payer MEDICARE, SELFPAY ==
[2020-11-01 20:52] VITALS: BP 154/103; PULSE 72; RESP 17; TEMP 36.4; O2SAT 97
--- NOTE | 2020-11-01 21:58 | ED.EXTPRO ---
HPI - Extremity Problem General Chief complaint: Extremity Problem,Nontraumatic Stated complaint: pain in legs Time Seen by Provider: 11/01/20 21:05 History of Present Illness HPI Narrative: Patient is a 65-year-old male who presents ER with pain to the lateral aspect of his left leg. Patient reports that that a cat scratched his leg yesterday. It is his own cat. He developed increased pain directly over the area today. No fevers or chills or sweats. No drainage. No significant increase in redness. Patient has no distal extremity pain. Related Data Home Medications Medication Instructions Recorded Confirmed cilostazol 100 mg PO BID 03/09/19 10/04/20 morphine 15 mg immediate release 15 mg PO .five times daily tablet 05/24/20 10/04/20 tablet Allergies Allergy/AdvReac Type Severity Reaction Status Date / Time bee venom protein (honey bee) Allergy Unknown Nausea and Verified 11/01/20 20:54 Vomiting iodine Allergy Unknown FACIAL Verified 11/01/20 20:54 SWELLING,ITCHING Contrast Media Allergy Intermediate FACIAL Uncoded 11/01/20 20:54 SWELLING, ITCHING, AND REDNESS Review of Systems Review of Systems: All systems reviewed & are unremarkable except as noted in HPI and below Constitutional: Constitutional: Denies chills, Denies fever(s) and Denies weakness Cardiovascular: Cardiovascular: Denies chest pain and Denies radiating jaw, neck or arm pain Respiratory: Respiratory: Denies cough and Denies dyspnea Gastrointestinal: Gastrointestinal: Denies nausea and Denies vomiting Musculoskeletal: Musculoskeletal: Denies muscle cramps Integumentary/Breasts: Skin/Breast: Denies pruritus, Denies erythema and Denies skin ulcer Comments: Scratches to left leg. FORMERLY [facility] Past Medical History Medical History (Updated 11/01/20 @ 22:01 by Jonathan Goncalves MD) Anxiety Arthritis Bronchitis Cataracts, bilateral Coarse tremors CVA (cerebrovascular accident) DDD (degenerative disc disease) Depression Diverticulitis Fall (on) (from) other stairs and steps, initial encounter GERD (gastroesophageal reflux disease) H/O non anemic vitamin B12 deficiency H/O prostate cancer Hiatal hernia HLD (hyperlipidemia) Hypertension Left knee pain Lesion of ureter Lumbar stenosis Lumbar vertebral fracture Melena Migraines Neuropathy Normal colonoscopy (~2009) Osteoporosis Pacemaker Peripheral neuropathy Pneumonia Right wrist fracture Seasonal allergies Sleep apnea Ulcer UTI (urinary tract infection) Vision abnormalities Surgical History Surgical History (Updated 10/04/20 @ 10:07 by Sallie Moore MD) H/O right knee surgery H/O spinal fusion C4-C7-T1 History of appendectomy History of orthopedic surgery cleft hand, bilateral shoulder, left 3rd finger, jaw History of penile implant History of repair of hiatal hernia Hx of cholecystectomy Hx of tonsillectomy Knee joint replacement status S/P TURP (transurethral resection of prostate) Family History Family History Father Family history of coronary artery disease Mother Family history of coronary artery disease Other Cerebrovascular accident Diabetes mellitus Family history of cardiovascular disease Hypertension Social History Social History Smoking status: Former smoker Second hand tobacco smoke exposure: Yes Smoking end date: 04/05/06 Alcohol intake: current Alcohol use details: rare Substance use: never Gender identity (if verbalized by the patient): Male Spiritual care concerns: No Agree to blood products: No Exam Narrative: GENERAL: Well-appearing, well-nourished, and in no acute distress. HEAD: Normocephalic, atraumatic. HEART: Regular rate and rhythm. Normal dorsalis pedis and posterior tibial pulses.. EXTREMITIES: Normal range of motion. No edema. SKIN: Warm, dry, no rash. Scratches ov
[2020-11-01 22:39] VITALS: BP 148/84; PULSE 76; RESP 16; TEMP 36.7; O2SAT 98
== END 2020-11-01 22:10 | disposition home or self-care (01) ==
PROVIDERS: Emergency Provider Emergency Medicine; PCP Family Medicine
DX: L03.116 Cellulitis of left lower limb (principal); M19.90 Unspecified osteoarthritis, unspecified site; K21.9 Gastro-esophageal reflux disease without esophagitis; E53.8 Deficiency of other specified B group vitamins; E78.5 Hyperlipidemia, unspecified; M81.0 Age-related osteoporosis without current pathological fracture; G62.9 Polyneuropathy, unspecified; G47.30 Sleep apnea, unspecified; Z85.46 Personal history of malignant neoplasm of prostate; Z95.0 Presence of cardiac pacemaker; Z87.440 Personal history of urinary (tract) infections; Z86.73 Personal history of transient ischemic attack (TIA), and cerebral infarction without residual deficits; Z98.1 Arthrodesis status; Z96.659 Presence of unspecified artificial knee joint; Z87.891 Personal history of nicotine dependence; Z90.79 Acquired absence of other genital organ(s)
CPT/HCPCS: 99283

== ENCOUNTER 2020-11-07 08:30 | Outpatient (CLI) | payer MEDICARE, SELFPAY ==
--- NOTE | ~2020-11-07 | XR_ITS ---
EXAMINATION: XR ankle LT min 3V DATE: 11/07/2020 08:44 INDICATION: Lateral ankle pain TECHNIQUE: Anteroposterior, lateral, mortise, and additional oblique view of the ankle were obtained. COMPARISON: None. FINDINGS: There is mild cortical irregularity involving the medial aspect of the talar dome. An assoc iated subchondral lucency is noted. Bone alignment is normal. There is mild osteoarthritis of the mid foot. A posterior calcaneal enthesophyte is noted. IMPRESSION: 1. Cortical irregularity and associated subchondral lucency in the medial talar dome. Findings likely reflect osteoarthritis and high-grade chondromalacia. Osteochondral lesion is considered less likely . Reviewed, dictated and finalized at location A. IMPRESSION: 1. Cortical irregularity and associated subchondral lucency in the medial talar dome. Findings likely reflect osteoarthritis and high-grade chondromalacia. Os teochondral lesion is considered less likely.
== END 2020-11-07 08:31 | disposition home or self-care (01) ==
LOC: ANHIMG 08:33
PROVIDERS: PCP Family Medicine; Visit Provider Family Medicine
DX: M19.072 Primary osteoarthritis, left ankle and foot (principal); M94.272 Chondromalacia, left ankle and joints of left foot
CPT/HCPCS: 73610

== ENCOUNTER 2021-02-09 15:00 | Emergency (ER) | payer MEDICARE, SELFPAY ==
--- NOTE | ~2021-02-09 | CT_ITS ---
EXAMINATION: CT abdomen pelvis wo con DATE: 02/09/2021 19:07 INDICATION: Right lower quadrant and left lower quadrant abdominal pain for 2 days TECHNIQUE: Computed tomography (CT) of the abdomen and pelvis was performed without intravenous contr ast. Automated exposure control and iterative reconstruction technique were employed. Exam dose: 349 .98 mGy-cm total exam DLP. COMPARISON: 10/30/2019 CT abdomen pelvis noncontrast examination FINDINGS: Emphysematous changes of the lungs are noted. There is mild bilateral dependent lower lobe atelectasis. Heart size is within normal limits. Right atrial and right ventricular pacemaker leads are noted. Status post cholecystectomy. The liver, spleen, pancreas, adrenal glands are unremarkable. No significant abnormality of the right kidney is noted with exception of a probable small cortical cyst. 2.2 cm left renal cyst. No urinary tract calculus or hydroureteronephrosis. There is calcification of the abdominal aorta and iliac arteries but no aneurysm. No intraperitoneal or retroperitoneal or pelvic mass lesion or adenopathy or ascites is detected. Status post prostatectomy. Inflatable penile implant. Very small sliding hiatal hernia. There is distention of multiple jejunal small bowel segments up to 3.1 cm diameter, with air-fluid le vels. There is some fecal-like content in the distal ileum and soft tissue thickening of a segment of distal ileal bowel wall. Consider Crohn's disease or distal ileal benign or malignant stricture or i nfection. The fecal-like contents suggest that this is a relatively chronic process. Small bowel seri es may be helpful for further evaluation. Normal appendix. There is diverticulosis of the colon. No CT evidence of diverticulitis. No pneumatos is or intraperitoneal free air. Severe degenerative disc disease at L4-5 and particularly L5-S1. Is moderate degenerative disease and prominent spurring at the remainder of the lumbar spine. 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 No suspicious osteolytic or osteoblastic lesions are noted. IMPRESSION: Segment of distal ileal soft tissue thickening and fecal-like contents of the distal ile um proximal to this point. Consider Crohn's disease, stricture, including possible malignant strictur e, lymphoma, infection Emphysema Status post cholecystectomy Left renal cyst Status post prostatectomy; inflatable canal implant Very small sliding hiatal hernia Diverticulosis of the colon Reviewed, dictated and finalized at Location A. Reviewed, dictated and finalized at location A. CTURES TECHNICIAN IMPRESSION: Segment of distal ileal soft tissue thickening and fecal-like cont ents of the distal ileum proximal to this point. Consider Crohn's disease, stri cture, including possible malignant stricture, lymphoma, infection Emphysema Status post cholecystectomy Left renal cyst Status post prostatectomy; inflatable canal implant Very small sliding hiatal hernia Diverticulosis of the colon
[2021-02-09 15:07] VITALS: BP 154/91; PULSE 91; RESP 14; TEMP 36.3; O2SAT 98
[2021-02-09 15:32] LABS: Alanine Aminotransferase 12 U/L (4-50); Albumin Level 3.6 g/dL (3.5-5.1); Alkaline Phosphatase 76 U/L (38-126); Anion Gap 3 mmol/L (8-16); Aspartate Amino Transferase 23 U/L (17-59); Bilirubin,Total 0.3 mg/dL (0.2-1.3); Blood Urea Nitrogen 11 mg/dL (9-20); Calcium 8.4 mg/dL (8.4-10.2); Carbon Dioxide 32 mmol/L (22-30); Chloride 103 mmol/L (98-107); Estimated CRCL calculation 72 ml/min; Estimated Glomerular Filt Rate > 60; Glucose 110 mg/dL (65-110); Lipase 83 U/L (23-300); Sodium 138 mmol/L (137-145)
[2021-02-09 15:35] LABS: Add Urine Microscopic? YES; Appearance Urine Cloudy (Clear); Bilirubin Urine Negative (Negative); Blood Urine 2+ (Negative); Color Urine Yellow (Yellow); Glucose Urine UA Negative (Negative); Ketones Urine Negative (Negative); Leukocyte Esterase Ur Trace LEU/UL (Negative); Mucus Urine Rare /lpf; Nitrate Urine Negative (Negative); Protein Urine 1+ mg/dL (Negative); RBC Urine >75 /hpf (0-2); Specific Grav Ur 1.018 (1.001-1.035); Squamous Epithelial Cell Urine Rare /hpf (Few); Urobilinogen Urine Negative mg/dL (<2.0); WBC Urine 16-20 /hpf
[2021-02-09 15:58] LABS: Basophils Absolute Auto 0.1 K/mm3 (0.0-0.1); Eosinophils Absolute Auto 0.2 K/mm3 (0-0.3); Eosinophils Percent Auto 1.8 % (0-4.4); Hematocrit 40.7 % (42.0-52.0); Hemoglobin 13.6 g/dL (14.0-18.0); Immature Granulocyte Absolute 0.06 K/mm3 (0.00-0.031); Immature Granulocyte Percent A 0.7 % (0-0.5); Lymphocytes Absolute Auto 1.94 K/mm3 (0.9-3.2); Lymphocytes Percent Auto 22.4 % (18.3-44.2); Mean Corpuscular HGB Conc 33.4 g/dl (32-36); Mean Corpuscular Hemoglobin 30.8 pg (26-34); Mean Corpuscular Volume 92.1 fl (80-100); Mean Platelet Volume 11.1 fl (7.4-10.4); Monocytes Absolute Auto 0.8 K/mm3 (0.1-0.6); Monocytes Percent Auto 9.2 % (2.6-8.5); Neutrophils Absolute Auto 5.6 K/mm3 (1.3-6.7); Neutrophils Percent Auto 64.9 % (45.5-73.1); Platelet Count Result 178 k/mm3 (150-375); Red Blood Count 4.42 M/mm3 (4.6-6.20); Red Cell Distribution Width 13.9 % (11.5-14.5); White Blood Count 8.7 K/mm3 (4.5-10.0)
[2021-02-09 18:24] VITALS: BP 154/97; PULSE 73; RESP 18; O2SAT 100
[2021-02-09] MEDS: MORPHINE SULFATE (*CRX) 2 MG/ML INJ IV PUSH (18:30)
[2021-02-09] MEDS: ONDANSETRON INJ 4 MG/2 ML VIAL IV PUSH (18:30)
--- NOTE | 2021-02-09 18:44 | ED.ABDPAIN ---
HPI - Abdominal Pain General Chief Complaint: Abdominal Pain Stated Complaint: bowel blockage Time Seen by Provider: 02/09/21 18:20 Source: patient Mode of arrival: ambulatory Limitations: no limitations History of Present Illness HPI narrative: Patient presents for evaluation of abdominal discomfort and rectal pain. Symptoms have been present for last 2 to 3 days. He indicates he has a history of constipation and current symptoms are consistent with constipation pattern in the past. He had some liquid stool last night and again this morning, but states that his last substantial solid bowel movement was 4-5 days ago. He has tried laxatives, stool softeners, and enemas without much success. He takes morphine 15mg five times per day for chronic neck pain. He states he had some type of urological surgery at [facility] last week. No additional complaints or concerns. States he had a colonoscopy about 1 year ago that showed one polyp without any additional abnormalities. Related Data Home Medications Medication Instructions Recorded Confirmed morphine 15 mg immediate release 15 mg PO .five times daily tablet 05/24/20 11/06/20 tablet Allergies Allergy/AdvReac Type Severity Reaction Status Date / Time bee venom protein (honey bee) Allergy Unknown Nausea and Verified 11/06/20 16:50 Vomiting iodine Allergy Unknown FACIAL Verified 11/06/20 16:50 SWELLING,ITCHING Contrast Media Allergy Intermediate FACIAL Uncoded 11/06/20 16:50 SWELLING, ITCHING, AND REDNESS Review of Systems Review of Systems: CONSTITUTIONAL: Denies fever, chills, or sweats. EYES: Denies visual changes, redness, or discharge. ENT: Denies rhinorrhea, congestion, sore throat, or otalgia. CARDIOVASCULAR: Denies chest pain, palpitations, or edema. RESPIRATORY: Denies cough or dyspnea. GASTROINTESTINAL: Reports abdominal pain, rectal pressure and constipation. Denies nausea/vomiting GENITOURINARY: Denies dysuria or hematuria. SKIN: Denies rash or itching. MUSCULOSKELETAL: Denies back pain, joint pain, or myalgia. NEUROLOGIC: Denies headache, numbness, dizziness, or weakness. PSYCHIATRIC: Denies anxiety or depression. Digital rectal exam complete with no fecal impaction identified FORMERLY [facility], [facility] Past Medical History Medical History Anxiety Arthritis Bronchitis Cataracts, bilateral Coarse tremors CVA (cerebrovascular accident) DDD (degenerative disc disease) Depression Diverticulitis Fall (on) (from) other stairs and steps, initial encounter GERD (gastroesophageal reflux disease) H/O non anemic vitamin B12 deficiency H/O prostate cancer Hiatal hernia HLD (hyperlipidemia) Hypertension Left knee pain Lesion of ureter Lumbar stenosis Lumbar vertebral fracture Melena Migraines Neuropathy Normal colonoscopy (~2009) Osteoporosis Pacemaker Peripheral neuropathy Pneumonia Right wrist fracture Seasonal allergies Sleep apnea Ulcer UTI (urinary tract infection) Vision abnormalities Surgical History Surgical History H/O right knee surgery H/O spinal fusion C4-C7-T1 History of appendectomy History of orthopedic surgery cleft hand, bilateral shoulder, left 3rd finger, jaw History of penile implant History of repair of hiatal hernia Hx of cholecystectomy Hx of tonsillectomy Knee joint replacement status S/P TURP (transurethral resection of prostate) Family History Family History Father Family history of coronary artery disease Mother Family history of coronary artery disease Other Cerebrovascular accident Diabetes mellitus Family history of cardiovascular disease Hypertension Social History Social History Smoking status: Former smoker Second hand tobacco smoke ex
[2021-02-09 21:13] VITALS: BP 157/72; PULSE 70; RESP 18; TEMP 36.7; O2SAT 100
== END 2021-02-09 21:25 | disposition home or self-care (01) ==
PROVIDERS: Family Medicine; Emergency Provider Nurse Practitioner; PCP Family Medicine
DX: K52.9 Noninfective gastroenteritis and colitis, unspecified (principal); K59.00 Constipation, unspecified; E78.5 Hyperlipidemia, unspecified; I10 Essential (primary) hypertension; G62.9 Polyneuropathy, unspecified; G47.30 Sleep apnea, unspecified; E53.8 Deficiency of other specified B group vitamins; M81.0 Age-related osteoporosis without current pathological fracture; M19.90 Unspecified osteoarthritis, unspecified site; F41.9 Anxiety disorder, unspecified; F32.A Depression, unspecified; Z86.73 Personal history of transient ischemic attack (TIA), and cerebral infarction without residual deficits; Z87.01 Personal history of pneumonia (recurrent); Z85.46 Personal history of malignant neoplasm of prostate; Z95.0 Presence of cardiac pacemaker; Z87.440 Personal history of urinary (tract) infections; Z98.1 Arthrodesis status; Z96.659 Presence of unspecified artificial knee joint; Z87.891 Personal history of nicotine dependence; J43.9 Emphysema, unspecified; Z90.79 Acquired absence of other genital organ(s); K44.9 Diaphragmatic hernia without obstruction or gangrene; K57.90 Diverticulosis of intestine, part unspecified, without perforation or abscess without bleeding
CPT/HCPCS: 36415; 74176; 80053; 81001; 83690; 85025; 87077; 87086; 87088; 96374; 96375; 99284; J2270; J2405

== ENCOUNTER 2021-05-01 00:59 | Day surgery (SDC) | payer MEDICARE, SELFPAY ==
[2021-04-24 15:20] VITALS: BMI 21.7
--- NOTE | 2021-04-24 15:26 | PC.NURSE ---
Report to the Outpatient Waiting Room, entrance under the green pavilion located off [facility], at time ___829____ on date __05/01/21 . OR Time: __1029 . - You and your visitor will be asked a series of questions to screen for COVID 19 for your protection. - A mask is required within the hospital. - Only one visitor is allowed at this time. Patient visitors will be guided where to wait when not with patient. Preoperative COVID Testing Requirements: No COVID Test needed if: (proof is required; if not received patient will have Rapid Test prior to entry) - Patient has received COVID Vaccine at least 14 days prior to procedure date or - Patient has positive COVID test result within last 90 days of surgery date. COVID Test needed if above criteria is not met If not COVID vaccinated a COVID test must be conducted within 72 hours of surgery and patient is asked to isolate self from time of testing until procedure. You will go to the [facility] for your COVID testing. The [facility] site is located at the corner of [address] [facility]. You will only be called if COVID results are positive and your surgeon may reschedule your elective surgery date. Patients may have clear liquids (water, carbonated beverages, clear teas, apple juice) until 3 hours prior to surgery with a maximum of 20 ounces. - No food from midnight until time of surgery - Infants may have breast milk until 4 hours before surgery, formula 6 hours prior to surgery. - Children will be allowed to drink immediately following surgery. If applicable, please bring a bottle or sippy cup to assist with drinking. Juice, water, soda, and popsicles are readily available. For infants on formula, please bring formula the day of surgery. Pacifiers are allowed. Take the following medications with a SIP of water the morning of surgery: __BUSPIRONE,GABAPENTIN,,MORPHINE, Medications to discontinue per physician NONE Date to take last dose Please no make-up, nail sudanese, hairspray, perfume, deodorant, or body powder the day of surgery. No jewelry (including any body piercings) or valuables the day of surgery, leave them at home. Please take a shower or bath the night before, or the morning of, surgery with an antibacterial soap. Wear comfortable, loose fitting clothing. Children are encouraged to wear pajamas. - Jewelry must be removed prior to entering the operating room. Rings and piercings that are not removed may be cut off. - The hospital will not accept responsibility for valuables. - Please leave all valuables, including medications, at home the day of surgery. If you are going home after surgery, a licensed special events driver must drive you home. - NO public transportation without another adult. - We recommend that an adult stay with you for 24 hours following discharge. - We also recommend that you do not drive, make important decision, drink alcoholic beverages, or take any drugs that were not prescribed by your health care provider for at least 24 hours after your discharge time. For Pediatric surgeries, we recommend two adults accompany the child home (only one inside the building at this time). Follow any additional instructions given to you from your surgeon. Telephone instructions given to __PATIENT and asked if any additional questions and then verbalized understanding. Patient advised to call surgeon office or pre surgery nurse liaison [phone] if any additional questions.
[2021-05-01 06:32] VITALS: BP 125/82; PULSE 85; RESP 18; TEMP 36.2; O2SAT 97; BMI 21.2
[2021-05-01] MEDS: LACTATED RINGERS 1,000 ML 30 ML IV CONT (06:49)
--- NOTE | 2021-05-01 07:08 | WPDANESEPPF ---
Anes - Initial Pre Proc Eval Procedure: Operation Date: 05/01/21 07:30 Proposed Procedures p Bilateral Open Carpal Tunnel Release - Hank Singh MD Date/Time: 05/01/21 07:08 Surgeon: Hank Singh MD Pre Op Diagnosis: bilateral carpal tunnel syndorme Patient Data Age: 66 Gender: M Height: 1.83 m Weight: 70.8 kg Last Vital Signs Temp 97.1 F L 05/01/21 06:32 Pulse 85 05/01/21 06:32 Resp 18 05/01/21 06:32 BP 125/82 05/01/21 06:32 Pulse Ox 97 05/01/21 06:32 Allergies Allergy/AdvReac Type Severity Reaction Status Date / Time bee venom protein (honey bee) Allergy Unknown Nausea and Verified 05/01/21 06:25 Vomiting iodine Allergy Unknown FACIAL Verified 05/01/21 06:25 SWELLING,ITCHING Contrast Media Allergy Intermediate FACIAL Uncoded 05/01/21 06:25 SWELLING, ITCHING, AND REDNESS Home Medications Medication Instructions Recorded Confirmed Type morphine 15 mg immediate release 15 mg PO .five times daily tablet 05/24/20 05/01/21 History tablet trazodone 100 mg tablet See Rx Instructions .ROUTE 10/04/20 05/01/21 Rx .COMPLEX #60 tablet gabapentin 600 mg tablet See Rx Instructions .ROUTE 10/29/20 05/01/21 Rx .COMPLEX #360 tablet simvastatin 40 mg tablet See Rx Instructions .ROUTE 11/26/20 05/01/21 Rx .COMPLEX #90 tablet buspirone 15 mg PO BID 04/24/21 05/01/21 History diclofenac sodium [Arthritis Pain 4 g TOPICAL PRN PRN 04/24/21 05/01/21 History (diclofenac)] propranolol 80 mg PO HS 04/24/21 05/01/21 History triamcinolone acetonide 1 applic TOPICAL PRN PRN 04/24/21 04/24/21 History venlafaxine 150 mg PO HS 04/24/21 04/24/21 History Patient hx anesthesia problems: none Family hx anesthesia problems: none Results Review: All pre-operative results and documents have been reviewed as part of the pre-operative evaluation. [facility] Past Medical History Medical History Anxiety Arthritis Bronchitis Cataracts, bilateral Coarse tremors CVA (cerebrovascular accident) DDD (degenerative disc disease) Depression Diverticulitis Fall (on) (from) other stairs and steps, initial encounter GERD (gastroesophageal reflux disease) H/O non anemic vitamin B12 deficiency H/O prostate cancer Hiatal hernia HLD (hyperlipidemia) Hypertension Left knee pain Lesion of ureter Lumbar stenosis Lumbar vertebral fracture Melena Migraines Neuropathy Normal colonoscopy (~2009) Osteoporosis Pacemaker Peripheral neuropathy Pneumonia Right wrist fracture Seasonal allergies Sleep apnea Ulcer UTI (urinary tract infection) Vision abnormalities Surgical History Surgical History H/O right knee surgery H/O spinal fusion C4-C7-T1 History of appendectomy History of orthopedic surgery cleft hand, bilateral shoulder, left 3rd finger, jaw History of penile implant History of repair of hiatal hernia Hx of cholecystectomy Hx of tonsillectomy Knee joint replacement status S/P TURP (transurethral resection of prostate) Family History Family History Father Family history of coronary artery disease Mother Family history of coronary artery disease Other Cerebrovascular accident Diabetes mellitus Family history of cardiovascular disease Hypertension Social History Social History Smoking packs per day: 1 Smoking cigarettes per day: 20.0 Years smoked: 25 Smoking pack-years: 25.00 Smoking status: Former smoker Tobacco type: cigarettes Second hand tobacco smoke exposure: Yes Smoking end date: 04/05/10 Alcohol intake: current Alcohol use details: rare Substance use: never Living arrangements: with family Gender identity (if verbalized by the patient): Male Spiritual care concerns: No Agree to blood products:
--- NOTE | 2021-05-01 07:27 | WPDHPUPDATE1 ---
History and Physical Update Update Date/Time: 05/01/21 07:27 History and Physical has been reviewed, including an updated exam of the patient. There are NO changes in the patient's condition. Risks, benefits, and alternatives have been discussed and questions answered. Patient agrees to proceed with procedure.
[2021-05-01] MEDS: LIDO 1%/EPINEPHRINE 1:100,000 50 ML VIAL 15 ML INFILTRATE (08:13)
--- NOTE | 2021-05-01 08:28 | W.PM.PROC2 ---
Procedure Note - Detailed Date of Procedure 05/01/21 Pre-op Diagnosis bilateral carpal tunnel syndorme Post-op Diagnosis same Procedure Performed Bilateral open carpal tunnel release Surgeon Hank Singh MD Anesthesia MAC Description of Procedure The 2 carpal tunnels were marked on the patient slowly waited holding area. The patient was taken to the operating room and placed supine on the operating table. A time-out was held and confirmed. He was given IV sedation. The 2 extremities were prepped on separate hand tables. Both sites were identified and locally infiltrated with 1% lidocaine with epinephrine. No tourniquet was utilized on either side. The right hand was done 1st with an incision in the palm as marked. Dissection was carried bluntly through the subcutaneous tissue to scar at the level of the retinaculum. It was incised with a 15 blade. Under 3 point retraction the ligament and scar were divided distally and proximally for complete release. The skin then closed with interrupted 4-0 nylon. Blood loss on that hand was approximately 2 milliliter. The incision was made on the left hand and dissection was carried through the subcutaneous tissue to scar at the level of the retinaculum. The tissue was divided exposing the contents of the carpal canal. Under 3 point retraction the scar tissue was divided distally and proximally to completely release it. Other than the scar there was no additional abnormal anatomy noted. This wound was closed with interrupted 4-0 nylon suture and the usual bandage applied. He is discharged from the operating room in stable condition. He has morphine and diclofenac to use at home on a regular basis.
[2021-05-01 08:30] VITALS: BP 110/61; PULSE 74; RESP 14; O2SAT 94
[2021-05-01 08:50] VITALS: BP 117/64; PULSE 78; RESP 14; O2SAT 96
[2021-05-01 09:16] VITALS: BP 133/63; PULSE 73; RESP 16; O2SAT 96
== END 2021-05-01 09:30 | disposition home or self-care (01) ==
PROVIDERS: PCP Family Medicine; Visit Provider Plastic Surgery
PROC: (CPT 64721; principal; 2021-05-01 07:30)
DX: G56.03 Carpal tunnel syndrome, bilateral upper limbs (principal); F41.8 Other specified anxiety disorders; M19.90 Unspecified osteoarthritis, unspecified site; Z86.73 Personal history of transient ischemic attack (TIA), and cerebral infarction without residual deficits; K57.92 Diverticulitis of intestine, part unspecified, without perforation or abscess without bleeding; K44.9 Diaphragmatic hernia without obstruction or gangrene; I10 Essential (primary) hypertension; E78.00 Pure hypercholesterolemia, unspecified; M48.061 Spinal stenosis, lumbar region without neurogenic claudication; G62.9 Polyneuropathy, unspecified; M81.0 Age-related osteoporosis without current pathological fracture; Z95.0 Presence of cardiac pacemaker; G47.30 Sleep apnea, unspecified; Z98.1 Arthrodesis status; Z87.891 Personal history of nicotine dependence
CPT/HCPCS: 64721; A9270; J2250; J2704; J3010; J7120

== ENCOUNTER 2021-05-23 08:03 | Outpatient (CLI) | payer MEDICARE, SELFPAY ==
--- NOTE | ~2021-05-23 | XR_ITS ---
XR hand RT min 3V, XR hand LT min 3V 05/23/2021 08:33 Indication: Osteoarthritis Procedure: 3 views each hand Comparison: 11/23/2013 Findings: There is moderate-severe polyarticular osteoarthritis. Findings most advanced in the right hand at the first IP, second and third DIP joints. Normal mineralization. No erosive changes. No foca l soft tissue abnormality. Findings most advanced in the left hand at the first MCP, second DIP and t hird PIP and DIP. There is an old avulsion fracture distal tip of the left first distal phalanx. Impression: 1: Moderate-severe polyarticular osteoarthritis. Reviewed, dictated and finalized at location A. FROSTER Impression: 1: Moderate-severe polyarticular osteoarthritis. Impression: 1: Moderate-severe polyarticular osteoarthritis.
== END 2021-05-23 08:04 | disposition home or self-care (01) ==
PROVIDERS: PCP Family Medicine; Visit Provider Plastic Surgery
DX: Z01.812 Encounter for preprocedural laboratory examination (principal); M19.042 Primary osteoarthritis, left hand; M19.041 Primary osteoarthritis, right hand; M79.642 Pain in left hand; M79.641 Pain in right hand
CPT/HCPCS: 73130; 87086

== ENCOUNTER → 2021-05-26 00:51 | Outpatient (CLI) | payer MEDICARE, SELFPAY ==
[2021-05-26 17:03] LABS: SARS-CoV-2 RNA PCR Negative
== END ==
PROVIDERS: PCP Family Medicine
DX: Z01.812 Encounter for preprocedural laboratory examination (principal); Z20.822 Contact with and (suspected) exposure to COVID-19
CPT/HCPCS: C9803; U0003; U0005

== ENCOUNTER 2021-06-26 00:33 | Day surgery (SDC) | payer MEDICARE, SELFPAY ==
--- NOTE | 2021-06-16 14:59 | PC.NURSE ---
Report to the Outpatient Waiting Room, entrance under the green pavilion located off [facility], at time _1100 on date _06/26/21 . OR Time: __1300 . - You and your visitor will be asked a series of questions to screen for COVID 19 for your protection. - A mask is required within the hospital. Preoperative COVID Testing Requirements: No COVID Test needed if: (proof is required; if not received patient will have Rapid Test prior to entry) - Patient has received COVID Vaccine at least 14 days prior to procedure date or - Patient has positive COVID test result within last 90 days of surgery date. COVID Test needed if above criteria is not met If not COVID vaccinated a COVID test must be conducted within 72 hours of surgery and patient is asked to isolate self from time of testing until procedure. You will go to the [facility] for your COVID testing. The [facility] site is located at the corner of [address] [facility]. You will only be called if COVID results are positive and your surgeon may reschedule your elective surgery date. Patients may have clear liquids (water, carbonated beverages, clear teas, apple juice) until 3 hours prior to surgery with a maximum of 20 ounces. - No food from midnight until time of surgery - Infants may have breast milk until 4 hours before surgery, infant formula 6 hours prior to surgery. - Children will be allowed to drink immediately following surgery. If applicable, please bring a bottle or sippy cup to assist with drinking. Juice, water, soda, and popsicles are readily available. For infants on formula, please bring formula the day of surgery. Pacifiers are allowed. Take the following medications with a SIP of water the morning of surgery: ___BUSPIRONE,GABAPENTIN,MORPHINE Medications to discontinue per physician NONE Date to take last dose Please no make-up, nail azeri, hairspray, perfume, deodorant, or body powder the day of surgery. No jewelry (including any body piercings) or valuables the day of surgery, leave them at home. Please take a shower or bath the night before, or the morning of, surgery with an antibacterial soap. Wear comfortable, loose fitting clothing. Children are encouraged to wear pajamas. - Jewelry must be removed prior to entering the operating room. Rings and piercings that are not removed may be cut off. - The hospital will not accept responsibility for valuables. - Please leave all valuables, including medications, at home the day of surgery. If you are going home after surgery, a licensed tanker truck driver must drive you home. - NO public transportation without another adult. - We recommend that an adult stay with you for 24 hours following discharge. - We also recommend that you do not drive, make important decision, drink alcoholic beverages, or take any drugs that were not prescribed by your health care provider for at least 24 hours after your discharge time. For Pediatric surgeries, we recommend two adults accompany the child home (only one inside the building at this time). One visitor will be allowed to accompany the patient into the hospital. Patients visitor will be instructed to remain with patient at all times or leave the building. We will allow the visitor to come back to the postoperative area when patient is ready. Follow any additional instructions given to you from your surgeon. Telephone instructions given to __PATIENT and asked if any additional questions and then verbalized understanding. Patient advised to call surgeon office or pre surgery nurse liaison [phone] if any additional questions.
--- NOTE | 2021-06-16 15:00 | PC.NURSE ---
PT STATES NO CHANGE IN HEALTH HX SINCE LAST INTERVIEW ON 04/24/21.
[2021-06-16 15:13] VITALS: BMI 21.2
--- NOTE | ~2021-06-26 | XR_ITS ---
EXAMINATION: XR surgery orthopedic DATE: 06/26/2021 14:51 INDICATION: Right hand arthrodesis at the second and third distal interphalangeal joints. TECHNIQUE: 3 fluoroscopic images of the right second and third fingers were obtained during procedure performed by Dr. Singh. Radiologist was not present for the imaging or procedure. The amount of fluo roscopy time used during this procedure was 1.5 minutes. COMPARISON: 05/23/2021 FINDINGS: Attempted arthrodesis of the right second and third distal interphalangeal joints, both which are fix ed with long variable pitch compression screws extending from the tuft of the distal phalanges to the proximal metaphyseal regions of the middle phalanges. Alignment appears near-anatomic. Osteoarthriti s at the remaining visualized interphalangeal joints, moderate severity at the second and fourth prox imal interphalangeal joints and mild at the third proximal and fourth distal interphalangeal joints. IMPRESSION: 1. Polyarticular osteoarthritis at the interphalangeal joints of the right hand with expected appeara nce post second and third distal interphalangeal arthrodeses with compression screw fixations. See pr ocedure note for further detail. Reviewed, dictated and finalized at location A. IMPRESSION: 1. Polyarticular osteoarthritis at the interphalangeal joints of the right hand with expected appearance post second and third distal interphalangeal arthrode ses with compression screw fixations. See procedure note for further detail.
--- NOTE | 2021-06-26 09:06 | WPDHPUPDATE1 ---
History and Physical Update Update Date/Time: 06/26/21 09:06 History and Physical has been reviewed, including an updated exam of the patient. There are NO changes in the patient's condition. Risks, benefits, and alternatives have been discussed and questions answered. Patient agrees to proceed with procedure.
[2021-06-26 11:15] VITALS: BP 135/75; PULSE 74; RESP 16; TEMP 36.1; O2SAT 99
[2021-06-26] MEDS: LACTATED RINGERS 1,000 ML 30 ML IV CONT (11:20)
[2021-06-26] MEDS: ACETAMINOPHEN 500 MG TABLET 1000 MG PO (11:41)
[2021-06-26] MEDS: KETOROLAC 15 MG/ML VIAL (*BKC) IV PUSH (11:54)
--- NOTE | 2021-06-26 12:21 | WPDANESEPPF ---
Anes - Initial Pre Proc Eval Procedure: Operation Date: 06/26/21 13:00 Proposed Procedures p Arthrodesis Right Second and Third Distal Interphalangeal Joint - Hank Singh MD Date/Time: 06/26/21 12:21 Surgeon: Hank Singh MD Pre Op Diagnosis: oa rt 2nd&3rd distal interphalangeal joint Patient Data Age: 66 Gender: M Height: 1.83 m Weight: 71.3 kg Last Vital Signs Temp 36.1 C L 06/26/21 11:15 Pulse 74 06/26/21 11:15 Resp 16 06/26/21 11:15 BP 135/75 06/26/21 11:15 Pulse Ox 99 06/26/21 11:15 Allergies Allergy/AdvReac Type Severity Reaction Status Date / Time bee venom protein (honey bee) Allergy Intermediate Nausea and Verified 06/26/21 11:24 Vomiting iodine Allergy Intermediate FACIAL Verified 06/26/21 11:24 SWELLING,ITCHING Contrast Media Allergy Intermediate FACIAL Uncoded 06/26/21 11:24 SWELLING, ITCHING, AND REDNESS Home Medications Medication Instructions Recorded Confirmed Type morphine 15 mg immediate release 15 mg PO .five times daily tablet 05/24/20 06/26/21 History tablet trazodone 100 mg tablet See Rx Instructions .ROUTE 10/04/20 06/26/21 Rx .COMPLEX #60 tablet gabapentin 600 mg tablet See Rx Instructions .ROUTE 10/29/20 06/26/21 Rx .COMPLEX #360 tablet buspirone 15 mg PO BID 04/24/21 06/26/21 History diclofenac sodium [Arthritis Pain 4 g TOPICAL PRN PRN 04/24/21 06/16/21 History (diclofenac)] propranolol 80 mg PO HS 04/24/21 06/26/21 History venlafaxine 150 mg PO HS 04/24/21 06/26/21 History cyclobenzaprine 10 mg tablet 10 mg PO TID PRN #30 tablet 05/21/21 06/16/21 Rx simvastatin 40 mg tablet See Rx Instructions .ROUTE 06/24/21 06/26/21 Rx .COMPLEX #90 tablet Patient hx anesthesia problems: none Family hx anesthesia problems: none Results Review: All pre-operative results and documents have been reviewed as part of the pre-operative evaluation. [facility] Past Medical History Medical History Anxiety Arthritis Bronchitis Cataracts, bilateral Coarse tremors CVA (cerebrovascular accident) DDD (degenerative disc disease) Depression Diverticulitis Fall (on) (from) other stairs and steps, initial encounter GERD (gastroesophageal reflux disease) H/O non anemic vitamin B12 deficiency H/O prostate cancer Hiatal hernia HLD (hyperlipidemia) Hypertension Left knee pain Lesion of ureter Lumbar stenosis Lumbar vertebral fracture Melena Migraines Neuropathy Normal colonoscopy (~2009) Osteoporosis Pacemaker Peripheral neuropathy Pneumonia Right wrist fracture Seasonal allergies Sleep apnea Ulcer UTI (urinary tract infection) Vision abnormalities Surgical History Surgical History H/O right knee surgery H/O spinal fusion C4-C7-T1 History of appendectomy History of orthopedic surgery cleft hand, bilateral shoulder, left 3rd finger, jaw History of penile implant History of repair of hiatal hernia Hx of cholecystectomy Hx of tonsillectomy Knee joint replacement status S/P TURP (transurethral resection of prostate) Family History Family History Father Family history of coronary artery disease Mother Family history of coronary artery disease Other Cerebrovascular accident Diabetes mellitus Family history of cardiovascular disease Hypertension Social History Social History Smoking packs per day: 1 Smoking cigarettes per day: 20.0 Years smoked: 25 Smoking pack-years: 25.00 Smoking status: Former smoker Tobacco type: cigarettes Second hand tobacco smoke exposure: Yes Smoking end date: 04/05/10 Alcohol intake: current Alcohol use details: rare Substance use: never Substance use type: does not use Living arrangements: with family Gender identity (if verbalized by t
[2021-06-26] MEDS: ceFAZolin 2 GM/D5W 50 ML 2 GM/50 ML BAG IVPB (12:26)
[2021-06-26] MEDS: BUPIVACAINE HCL 0.5% PF 30 ML VIAL INFILTRATE (14:34)
[2021-06-26 14:50] VITALS: BP 138/85; PULSE 67; RESP 16; O2SAT 95
[2021-06-26 15:20] VITALS: BP 142/80; PULSE 62; RESP 16
--- NOTE | 2021-06-26 16:08 | W.PM.PROC2 ---
Procedure Note - Detailed Date of Procedure 06/26/21 Pre-op Diagnosis oa rt 2nd&3rd distal interphalangeal joint Post-op Diagnosis Same Procedure Performed Arthrodesis of the right 2nd and 3rd distal interphalangeal joints with headless screw Surgeon Hank Singh MD [employer] Shaina Anesthesia MAC and Local Description of Procedure The distal interphalangeal joints of the right index and middle finger were marked on the patient waiting in the holding area. He was then taken to the operating room and placed supine on the operating table. A time-out was held and confirmed. He was given IV sedation. The extremity was prepped and draped in usual fashion. The digits were blocked with 1% lidocaine with epinephrine. The middle finger was addressed 1st by rolling a medium green tourniquet on to the base of the finger. Access was provided with a transverse incision over the distal interphalangeal joint and mid lateral incisions on both sides of the finger allowing a distal and proximal flap elevation from the middle and distal phalanx. These flaps included the entire extensor tendon. The collateral ligaments were divided sharply and the distal phalanx flexed instructed in style exposing the 2 ends of the phalanges. A 1.1 mm C-wire from the [employer] headless screw system was passed distal to proximal through the head of the middle phalanx into the metaphysis. This was followed by applying the concave reamer to the head of the middle phalanx to produce a cone end for the cup and cone arthrodesis. That wire was removed. It was then passed proximal to distal through the base of the distal phalanx out through the tip of the finger. With this guide in place, the convex Reamer was applied to the base of the distal phalanx to produce the cup end of the construct. The joint was then closed and the C-wire was passed across the joint down the midline of the middle phalanx medullary canal. Stopping short of the and of that bone. A small incision was made at the entry point at the tip and the depth gauge was inserted to the tip of the bone and the estimated length for the headless screw was determined. On this finger a 38 mm x 2.5 mm headless screw was chosen. This was passed over the existing guidewire and across the interphalangeal joint until the head of the screw was flush with the tip of the phalanx. There were no complications with this the tourniquet was released and the skin was closed with running 5 0 nylon suture. Attention was then turned to the index finger where the same process was carried out with the H type incision, dividing the extensor tendon into the distal interphalangeal joint. There was elevation of the full-thickness flaps in both directions and release of collateral ligaments. In both cases the rongeur was used to trim away osteophytes and redundant synovitis. The joint was shotgunned open. The guidewire inserted into the head of the middle phalanx and driven to near the base. The concave reamer was applied and the head of the middle phalanx prepared. This removed all the cartilage and left exposed cancellous bone. The the same process was carried out on the distal phalanx. Here the the convex reamer was applied to the base of distal phalanx to shape the cup end. the C wire was then driven across the joint and into the base of the middle phalanx. The small shaye in the tip of the finger was opened and the measuring guide placed to determine screw length. A 36 mm x 2.5 mm screw was chosen this was passed over the guidewire and inserted through both phalanges across the joint until it abutted against the distal phalanx tip. images were taken throughout the case and final images made termination of the case. The tourniquet was removed from the index finger the wound was closed with running 5 0 nylon sutures. 0.5% Marcaine plain was infiltrated at as digital blocks to each finger. Small bandages were applied to each finge
== END 2021-06-26 15:35 | disposition home or self-care (01) ==
PROVIDERS: PCP Family Medicine; Visit Provider Plastic Surgery
PROC: (CPT 26608; principal; 2021-06-26 13:00)
DX: M19.041 Primary osteoarthritis, right hand (principal); I10 Essential (primary) hypertension; E78.5 Hyperlipidemia, unspecified; F41.8 Other specified anxiety disorders; R25.1 Tremor, unspecified; K21.9 Gastro-esophageal reflux disease without esophagitis; M81.0 Age-related osteoporosis without current pathological fracture; G62.9 Polyneuropathy, unspecified; G47.30 Sleep apnea, unspecified; Z95.0 Presence of cardiac pacemaker; Z98.1 Arthrodesis status; Z86.73 Personal history of transient ischemic attack (TIA), and cerebral infarction without residual deficits; Z87.891 Personal history of nicotine dependence
CPT/HCPCS: 26860; 26861; A9270; J0690; J1885; J2704; J3010; J7120

== ENCOUNTER 2021-06-27 13:20 | Emergency (ER) | payer MEDICARE, SELFPAY ==
[2021-06-27 13:39] VITALS: BP 112/55; PULSE 104; RESP 18; TEMP 36.5; O2SAT 100
--- NOTE | 2021-06-27 14:55 | PC.NURSE ---
per Astrid with registration, when she called to register patient he informed her he left because he was tired of waiting in waiting room.
== END 2021-06-27 14:56 | disposition left against medical advice (07) ==
DX: M79.644 Pain in right finger(s) (principal)
CPT/HCPCS: 99199

== ENCOUNTER 2021-07-04 12:30 | Emergency (ER) | payer MEDICARE, SELFPAY ==
[2021-07-04 12:38] VITALS: BP 126/77; PULSE 104; RESP 16; TEMP 36.6; O2SAT 100
--- NOTE | 2021-07-04 14:22 | ED.LOWEXIN ---
HPI - Extremity Injury (Lower) General Chief Complaint: Extremity Injury, Lower Stated Complaint: left hip and leg pain Time Seen by Provider: 07/04/21 12:57 Source: patient Mode of arrival: ambulatory Limitations: no limitations History of Present Illness HPI Narrative: Patient is a 66 years old white male drove himself to the emergency room complaining of pain, sharp stabbing throbbing at the left side of the left thigh all the way down to the lateral side of the left knee. Patient denies any trauma or new physical activities. History of chronic neck pain, lower back pain, numerous of cortisone shots in the lower back and neck, patient is on a lot of medications for pain. Patient denies patient denies bowel dysfunction, bladder dysfunction, altered sensation, focal weakness, or saddle numbness, Related Data Home Medications Medication Instructions Recorded Confirmed morphine 15 mg immediate release 15 mg PO .five times daily tablet 05/24/20 07/03/21 tablet buspirone 15 mg PO BID 04/24/21 07/03/21 diclofenac sodium [Arthritis Pain 4 g TOPICAL PRN PRN 04/24/21 07/03/21 (diclofenac)] propranolol 80 mg PO HS 04/24/21 07/03/21 venlafaxine 150 mg PO HS 04/24/21 07/03/21 Allergies Allergy/AdvReac Type Severity Reaction Status Date / Time bee venom protein (honey bee) Allergy Intermediate Nausea and Verified 07/04/21 13:34 Vomiting iodine Allergy Intermediate FACIAL Verified 07/04/21 13:34 SWELLING,ITCHING Contrast Media Allergy Intermediate FACIAL Uncoded 07/04/21 13:34 SWELLING, ITCHING, AND REDNESS Review of Systems Review of Systems: CONSTITUTIONAL: Denies fever, chills, or sweats. EYES: Denies visual changes, redness, or discharge. ENT: Denies rhinorrhea, congestion, sore throat, or otalgia. CARDIOVASCULAR: Denies chest pain, palpitations, or edema. RESPIRATORY: Denies cough or dyspnea. GASTROINTESTINAL: Denies abdominal pain, nausea, vomiting, or diarrhea. GENITOURINARY: Denies dysuria or hematuria. SKIN: Denies rash or itching. MUSCULOSKELETAL: Denies back pain, joint pain, or myalgia. NEUROLOGIC: Denies headache, numbness, or weakness. PSYCHIATRIC: Denies anxiety or depression. [facility] Past Medical History Medical History Anxiety Arthritis Bronchitis Cataracts, bilateral Coarse tremors CVA (cerebrovascular accident) DDD (degenerative disc disease) Depression Diverticulitis Fall (on) (from) other stairs and steps, initial encounter GERD (gastroesophageal reflux disease) H/O non anemic vitamin B12 deficiency H/O prostate cancer Hiatal hernia HLD (hyperlipidemia) Hypertension Left knee pain Lesion of ureter Lumbar stenosis Lumbar vertebral fracture Melena Migraines Neuropathy Normal colonoscopy (~2009) Osteoporosis Pacemaker Peripheral neuropathy Pneumonia Right wrist fracture Seasonal allergies Sleep apnea Ulcer UTI (urinary tract infection) Vision abnormalities Surgical History Surgical History H/O right knee surgery H/O spinal fusion C4-C7-T1 History of appendectomy History of orthopedic surgery cleft hand, bilateral shoulder, left 3rd finger, jaw History of penile implant History of repair of hiatal hernia Hx of cholecystectomy Hx of tonsillectomy Knee joint replacement status S/P TURP (transurethral resection of prostate) Family History Family History Father Family history of coronary artery disease Mother Family history of coronary artery disease Other Cerebrovascular accident Diabetes mellitus Family history of cardiovascular disease Hypertension Social History Social History Smoking packs per day: 1 Smoking cigarettes per day: 20.0 Years smoked: 25 Smoking pack-years: 25.00 Tobacco type: cigarettes Second hand tobacco smoke
[2021-07-04] MEDS: HYDROcodone/acetaminophen (*CRX) 5-325 MG TABLET 1 TAB PO (14:43)
[2021-07-04] MEDS: KETOROLAC (*BKC) 60 MG/2 ML VIAL IM (14:48)
[2021-07-04 15:13] VITALS: BP 116/83; PULSE 103; RESP 20; O2SAT 97
== END 2021-07-04 15:15 | disposition home or self-care (01) ==
PROVIDERS: Emergency Provider Emergency Medicine; PCP Family Medicine
DX: M76.32 Iliotibial band syndrome, left leg (principal); E78.5 Hyperlipidemia, unspecified; I10 Essential (primary) hypertension; G62.9 Polyneuropathy, unspecified; M81.0 Age-related osteoporosis without current pathological fracture; G47.30 Sleep apnea, unspecified; K21.9 Gastro-esophageal reflux disease without esophagitis; F41.9 Anxiety disorder, unspecified; Z87.440 Personal history of urinary (tract) infections; Z86.73 Personal history of transient ischemic attack (TIA), and cerebral infarction without residual deficits; Z87.01 Personal history of pneumonia (recurrent); Z98.1 Arthrodesis status; Z96.659 Presence of unspecified artificial knee joint; Z87.891 Personal history of nicotine dependence
CPT/HCPCS: 96372; 99283; A9270; J1885

== ENCOUNTER 2021-08-07 10:38 | Outpatient (CLI) | payer MEDICARE, SELFPAY ==
--- NOTE | ~2021-08-07 | XR_ITS ---
XR hand RT min 3V DATE: 08/07/2021 11:17 INDICATION: Primary osteoarthritis TECHNIQUE: 4 views of right hip COMPARISON: None FINDINGS: Status post surgical fusion at distal interphalangeal joints of the second and third digits . There is osteoarthritic change at the remaining interphalangeal joints, particularly the interphalang eal joint of the first digit. There is also osteoarthritic change at the first metacarpophalangeal gm int. No fracture, dislocation, periosteal reaction, erosive change or chondrocalcinosis. IMPRESSION: Osteoarthritic changes primarily at the interphalangeal joints and first metacarpophalang eal joint Status post surgical fusion at distal interphalangeal joints of second and third digits Reviewed, dictated and finalized at location A. IMPRESSION: Osteoarthritic changes primarily at the interphalangeal joints and first metacarpophalangeal joint Status post surgical fusion at distal interphalangeal joints of second and thir d digits
== END 2021-08-07 10:39 | disposition home or self-care (01) ==
LOC: ANHIMG 10:42
PROVIDERS: PCP Family Medicine; Visit Provider Plastic Surgery
DX: M19.041 Primary osteoarthritis, right hand (principal); Z98.890 Other specified postprocedural states
CPT/HCPCS: 73130

== ENCOUNTER 2021-09-11 02:28 | Day surgery (SDC) | payer MEDICARE, SELFPAY ==
--- NOTE | 2021-09-02 11:58 | PC.NURSE ---
Report to the Outpatient Waiting Room, entrance under the green pavilion located off [facility], at time _0930 on date _09/11/21 . OR Time: ___1130 . - You and your visitor will be asked a series of questions to screen for COVID 19 for your protection. - Only one visitor is allowed at this time. - The patient visitor is requested to leave or wait in car when not with patient. - A mask is required within the hospital. Patients may have clear liquids (water, carbonated beverages, clear teas, apple juice) until 3 hours prior to surgery with a maximum of 20 ounces. - No food from midnight until time of surgery - Infants may have breast milk until 4 hours before surgery, infant formula 6 hours prior to surgery. - Children will be allowed to drink immediately following surgery. If applicable, please bring a bottle or sippy cup to assist with drinking. Juice, water, soda, and popsicles are readily available. For infants on formula, please bring formula the day of surgery. Pacifiers are allowed. Take the following medications with a SIP of water the morning of surgery: _BUSPIRONE,GABAPENTIN,MORPHINE Medications to discontinue per physician NONE Date to take last dose Please no make-up, nail danish, hairspray, perfume, deodorant, or body powder the day of surgery. No jewelry (including any body piercings) or valuables the day of surgery, leave them at home. Please take a shower or bath the night before, or the morning of, surgery with an antibacterial soap. Wear comfortable, loose fitting clothing. Children are encouraged to wear pajamas. - Jewelry must be removed prior to entering the operating room. Rings and piercings that are not removed may be cut off. - The hospital will not accept responsibility for valuables. - Please leave all valuables, including medications, at home the day of surgery. If you are going home after surgery, a licensed distribution driver must drive you home. - NO public transportation without another adult. - We recommend that an adult stay with you for 24 hours following discharge. - We also recommend that you do not drive, make important decision, drink alcoholic beverages, or take any drugs that were not prescribed by your health care provider for at least 24 hours after your discharge time. For Pediatric surgeries, we recommend two adults accompany the child home (only one inside the building at this time). Follow any additional instructions given to you from your surgeon. If you or anyone in your household have experienced Covid symptoms in the past week, please notify your surgeon or the nurse liaison at the phone number below for possible testing. Telephone instructions given to _PATIENT and asked if any additional questions and then verbalized understanding. Patient advised to call surgeon office or pre surgery nurse liaison [phone] if any additional questions.
[2021-09-02 11:59] VITALS: BMI 21.7
--- NOTE | ~2021-09-11 | XR_ITS ---
XR surgery orthopedic DATE: 09/11/2021 14:53 INDICATION: Arthrodesis of second and third digits of left hand TECHNIQUE: 3 spot C-arm images of the second and third digits 72.7 seconds fluoroscopy time 1.40 mGy COMPARISON: May 23, 2021 left hand FINDINGS: Compression screw devices span the length of the distal phalanges, extending into the metap hyseal areas of the middle phalanges of the second and third digits. IMPRESSION: Status post left second and third digit arthrodesis at the distal interphalangeal joints Reviewed, dictated and finalized at [facility]. Reviewed, dictated and finalized at [facility]. IMPRESSION: Status post left second and third digit arthrodesis at the distal i nterphalangeal joints
--- NOTE | 2021-09-11 07:19 | WPDHPUPDATE1 ---
History and Physical Update Update Date/Time: 09/11/21 07:19 History and Physical has been reviewed, including an updated exam of the patient. There are NO changes in the patient's condition. Risks, benefits, and alternatives have been discussed and questions answered. Patient agrees to proceed with procedure.
[2021-09-11 09:45] VITALS: BP 147/87; PULSE 75; RESP 16; TEMP 36.3; O2SAT 98
[2021-09-11] MEDS: ACETAMINOPHEN 500 MG TABLET 1000 MG PO (09:59)
[2021-09-11] MEDS: LACTATED RINGERS 1,000 ML 30 ML IV CONT ×2 (09:59→14:46)
[2021-09-11] MEDS: KETOROLAC 15 MG/ML VIAL (*BKC) IV PUSH (10:01)
--- NOTE | 2021-09-11 10:11 | WPDANESEPPF ---
Anes - Initial Pre Proc Eval Procedure: Operation Date: 09/11/21 11:30 Proposed Procedures p Arthrodesis Second and Third Left Distal Interphalangeal Joint with Headless Screws(Left) - Hank Singh MD Date/Time: 09/11/21 10:11 Surgeon: Hank Singh MD Pre Op Diagnosis: oa Left 2&3 distal interphalangeal joints Patient Data Age: 66 Gender: M Height: 1.83 m Weight: 68.4 kg Allergies Allergy/AdvReac Type Severity Reaction Status Date / Time bee venom protein (honey bee) Allergy Intermediate Nausea and Verified 09/11/21 09:32 Vomiting iodine Allergy Intermediate FACIAL Verified 09/11/21 09:32 SWELLING,ITCHING Contrast Media Allergy Intermediate FACIAL Uncoded 09/11/21 09:32 SWELLING, ITCHING, AND REDNESS Home Medications Medication Instructions Recorded Confirmed Type morphine 15 mg immediate release 15 mg PO .five times daily 05/24/20 09/11/21 History tablet gabapentin 600 mg tablet See Rx Instructions .Route 10/29/20 09/11/21 Rx .COMPLEX #360 tabs simvastatin 40 mg tablet See Rx Instructions .Route 06/24/21 09/11/21 Rx .COMPLEX #90 tabs buspirone 15 mg tablet 15 mg PO BID #180 tabs 07/29/21 09/11/21 Rx venlafaxine 150 mg 150 mg PO HS #90 caps 07/29/21 09/11/21 Rx capsule,extended release 24 hr trazodone 100 mg tablet See Rx Instructions .Route 08/14/21 09/11/21 Rx .COMPLEX #180 tabs ECG: Date of Service: 12/08/19 Procedure(s): CA 12 lead EKG Accession Number(s): [id number] cc: ~ ? Measurements Intervals? [place]? Rate: ? 108? P:? 40 ID: ? 181? QRS:? -5 QRSD: ? 86 ? T:? 47 QT: ? 323? QTc:? 433? Interpretive Statements SINUS TACHYCARDIA ABNORMAL ECG Electronically Signed On 12-09-2019 6:43:18 CDT by Wenceslao Ellsworth D.O. Patient hx anesthesia problems: none Family hx anesthesia problems: none Results Review: All pre-operative results and documents have been reviewed as part of the pre-operative evaluation. [facility] Past Medical History Medical History (Updated 07/07/21 @ 11:49 by Madelaine Gore [facility]) Anxiety Arthritis Bronchitis Cataracts, bilateral Coarse tremors CVA (cerebrovascular accident) DDD (degenerative disc disease) Depression Diverticulitis Fall (on) (from) other stairs and steps, initial encounter GERD (gastroesophageal reflux disease) H/O non anemic vitamin B12 deficiency H/O prostate cancer Hiatal hernia HLD (hyperlipidemia) Hypertension Left knee pain Lesion of ureter Lumbar stenosis Lumbar vertebral fracture Melena Migraines Neuropathy Normal colonoscopy (~2009) Osteoporosis Pacemaker Peripheral neuropathy Pneumonia Right wrist fracture Seasonal allergies Sleep apnea Ulcer UTI (urinary tract infection) Vision abnormalities Surgical History Surgical History (Updated 07/07/21 @ 11:49 by Madelaine Gore [facility]) H/O right knee surgery H/O spinal fusion C4-C7-T1 History of appendectomy History of orthopedic surgery cleft hand, bilateral shoulder, left 3rd finger, jaw History of penile implant History of repair of hiatal hernia Hx of cholecystectomy Hx of tonsillectomy Knee joint replacement status S/P TURP (transurethral resection of prostate) Family History Family History Father Family history of coronary artery disease Mother Family history of coronary artery disease Other Cerebrovascular accident Diabetes mellitus Family history of cardiovascular disease Hypertension Social History Social History Smoking packs per day: 1 Smoking cigarettes per day: 20.0 Years smoked: 25 Smoking pac
[2021-09-11] MEDS: ceFAZolin 2 GM/D5W 50 ML 2 GM/50 ML BAG IVPB (12:37)
[2021-09-11] MEDS: LIDO 1%/EPINEPHRINE/PF 1:200,000 30 ML VIAL INFILTRATE (14:35)
[2021-09-11 14:46] VITALS: BP 148/80; PULSE 60; RESP 12; O2SAT 98
[2021-09-11 15:15] VITALS: BP 169/99; PULSE 61; RESP 14
--- NOTE | 2021-09-11 15:31 | SUR.PHASEII ---
1525 DR GRIFFIN AWARE OF BP 169/99 & HR 61- NO ORDERS TO TREAT AT THIS TIME. PT MEETS ANESTHESIA DISCHARGE CRITERIA.
--- NOTE | 2021-09-11 15:59 | P.OP_ITS ---
Procedure Note - Detailed Date of Procedure 09/11/21 Pre-op Diagnosis oa Left 2&3 distal interphalangeal joints Post-op Diagnosis Same Procedure Performed Arthrodesis of the left 2nd and 3rd distal interphalangeal joints with headless screw technique Surgeon Hank Singh MD Delinquency Prevention Officer Danish Anesthesia MAC Indications Pain of osteoarthritis Description of Procedure The 2 digits were marked on the patient in the holding area. He was taken to the operating room where he was placed supine on the operating table. He was given IV sedation the extremity was prepped and draped in usual fashion. A time-out was held and confirmed. Both digits were infiltrated with 1% lidocaine with epinephrine. The sites were marked for and H type dorsal incision. The middle finger was done 1st. A green tourniquet was placed on the finger. The H-type incision was made with the transverse incision over the joint line and mid lateral incisions to create a distal and proximal flap in each case. The extensor tendon was divided along with the joint capsule and the 2 flaps elevated. The collateral ligaments were divided a guidewire was passed distal to proximal into the middle phalanx and the 10 and or 12 mm cone Reamer was used to debride the cartilage surface and shape the head of the middle phalanx. It the guidewire was removed the same guidewire was then used to pass and distal to proximal down the medullary canal of the distal phalanx. The tendon and/or 12 mm cup Reamer was applied to the base of the distal phalanx appropriately shaping and debriding the surface. The joint was then extended and the C wire driven from distal to proximal across the interphalangeal joint into the base of the middle phalanx. The patient was were made for length of screw the Reamer was passed over the guidewire and the trach drilled for the headless screw. A 2-1/2 mm headless screw was utilized. While advancing the screw it seem to impinge against the hard cortical surface and possibly bending the guidewire to impede further advancement of the screw. At that point the screwdriver began to spin in the cup at the head of the screw. At that point the screw could no longer be advanced or backed out.. The screw head advanced to a satisfactory point the rate. The problem was solved by making a small incision in the tip of the finger and cutting the head end of the screw off a Proximally 4 mm with a time signal wirer. This was smoothed with a 2 mm bur resulting in a satisfactory construct. Screw would not be able to be removed with a screwdriver however.. The wounds were closed with 5 0 nylon and the tourniquet was removed. Attention was then turned to the index finger for the same procedure was carried out development of a distal and proximal dorsal flap over the distal interphalangeal joint. The joint was shotgunned the guidewire was passed through the middle phalanx the cone Reamer was applied with debriding and surface in head of the middle phalanx. The guidewire was reposition to the distal phalanx and some procedure carried out with the cup Reamer. The 2 were then apposed and the long guidewire passed through both phalanges. Measurements were made for the screw and the screw was inserted without problem. The skin was closed with 5 0 nylon. Final C-arm images were made of the 2 digits sewing the placement of the screws and the position of the joints. A bulky bandage was applied to the 2 digits together and was discharged from the operating room stable condition. He is being discharged with a prescription for oxycodone 5/325 7. He has a regular prescription for morphine for other chronic use at his disposal. Estimated Blood Loss 0 Condition Stable
== END 2021-09-11 15:40 | disposition home or self-care (01) ==
PROVIDERS: PCP Family Medicine; Visit Provider Plastic Surgery
PROC: (CPT 26860; principal; 2021-09-11 11:30)
DX: M19.042 Primary osteoarthritis, left hand (principal); E78.5 Hyperlipidemia, unspecified; I10 Essential (primary) hypertension; G62.9 Polyneuropathy, unspecified; F41.8 Other specified anxiety disorders; Z86.73 Personal history of transient ischemic attack (TIA), and cerebral infarction without residual deficits; Z98.1 Arthrodesis status; Z85.46 Personal history of malignant neoplasm of prostate; Z87.891 Personal history of nicotine dependence
CPT/HCPCS: 26860; 26861; A9270; J0690; J1885; J2704; J3010; J7120

== ENCOUNTER 2021-10-01 10:02 | Emergency (ER) | payer MEDICARE, SELFPAY ==
--- NOTE | ~2021-10-01 | XR_ITS ---
XR finger 1st RT min 2V 10/01/2021 10:28 Indication: Right first finger pain Procedure: 3 views right first finger Comparison: No prior studies for comparison. Findings: There is moderate-severe polyarticular osteoarthritis of the first finger involving the int erphalangeal and MCP joints. No fracture or traumatic malalignment. No erosive change. No focal soft tissue abnormality. No foreign body. 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 Impression: 1: Moderate-severe polyarticular osteoarthritis of the right first finger pain
--- NOTE | 2021-10-01 10:10 | ED.EXTPRO ---
HPI - Extremity Problem General Chief complaint: Extremity Problem,Nontraumatic Stated complaint: thumb numbness/pain 3xdays Time Seen by Provider: 10/01/21 10:25 Source: patient and RN notes reviewed Mode of arrival: ambulatory Limitations: no limitations History of Present Illness HPI Narrative: 66-year-old male presents with concern for pain to the first digit of the right hand. He also reports numbness on the lateral part of the digit. He denies any injury. He reports 3-day history of pain that worsened overnight, causing him trouble sleeping last night. Reports he takes several medications for chronic pain which are not helping this current pain. He reports he has been taking those medications for a long time. He reports he has had severe arthritis in both hands and has had surgery on digits 2 and 3 of the right and left hands and is a patient of Dr. Del Rio. He denies warmth, swelling, redness, open skin or rash He reports slight deformity of the digit. He reports tenderness to the medial aspect of the digit. He reports pain with range of motion. Denies decree strength. MD Complaint: extremity pain Related Data Home Medications Medication Instructions Recorded Confirmed morphine 15 mg immediate release 15 mg PO .five times daily 05/24/20 09/11/21 tablet Allergies Allergy/AdvReac Type Severity Reaction Status Date / Time bee venom protein (honey bee) Allergy Intermediate Nausea and Verified 09/11/21 09:32 Vomiting iodine Allergy Intermediate FACIAL Verified 09/11/21 09:32 SWELLING,ITCHING Contrast Media Allergy Intermediate FACIAL Uncoded 09/11/21 09:32 SWELLING, ITCHING, AND REDNESS Review of Systems Review of Systems: CONSTITUTIONAL: Denies malaise, chills, sweats, or fever. SKIN: Denies rash or itching, open skin, laceration, abrasion, redness, warmth, swelling. MUSCULOSKELETAL: Reports pain to the first digit of the right hand, reports numbness to part of the first digit of the right hand NEUROLOGIC: Denies weakness All systems reviewed & are unremarkable except as noted in HPI and below PMFSH Past Medical History Medical History (Updated 10/01/21 @ 10:40 by Charlotte Johnson NP) Anxiety Arthritis Bronchitis Cataracts, bilateral Coarse tremors CVA (cerebrovascular accident) DDD (degenerative disc disease) Depression Diverticulitis Fall (on) (from) other stairs and steps, initial encounter GERD (gastroesophageal reflux disease) H/O non anemic vitamin B12 deficiency H/O prostate cancer Hiatal hernia HLD (hyperlipidemia) Hypertension Left knee pain Lesion of ureter Lumbar stenosis Lumbar vertebral fracture Melena Migraines Neuropathy Normal colonoscopy (~2009) Osteoporosis Pacemaker Peripheral neuropathy Pneumonia Right wrist fracture Seasonal allergies Sleep apnea Ulcer UTI (urinary tract infection) Vision abnormalities Surgical History Surgical History (Updated 07/07/21 @ 11:49 by Madelaine Gore, [facility]) H/O right knee surgery H/O spinal fusion C4-C7-T1 History of appendectomy History of orthopedic surgery cleft hand, bilateral shoulder, left 3rd finger, jaw History of penile implant History of repair of hiatal hernia Hx of cholecystectomy Hx of tonsillectomy Knee joint replacement status S/P TURP (transurethral resection of prostate) Family History Family History Father Family history of coronary artery disease Mother Family history of coronary artery disease Other Cerebrovascular accident Diabetes mellitus Family history of cardiovascular disease Hypertension Social History Social History Smoking packs per day: 1 Smoking cigarettes per day: 20.0 Years smoked: 25 Smoking pack-years: 25.00 Smoking status: Former smoker Tobacco type: cigarettes Second hand tobacco smoke exposure: Yes Smoking end date: 0
[2021-10-01 10:13] VITALS: BP 133/88; PULSE 81; RESP 16; TEMP 36.4; O2SAT 100
== END 2021-10-01 10:56 | disposition home or self-care (01) ==
PROVIDERS: Emergency Provider Nurse Practitioner; PCP Family Medicine
DX: M79.644 Pain in right finger(s) (principal); M19.90 Unspecified osteoarthritis, unspecified site; Z86.73 Personal history of transient ischemic attack (TIA), and cerebral infarction without residual deficits; K21.9 Gastro-esophageal reflux disease without esophagitis; E78.5 Hyperlipidemia, unspecified; I10 Essential (primary) hypertension; Z95.0 Presence of cardiac pacemaker; G62.9 Polyneuropathy, unspecified; G47.30 Sleep apnea, unspecified; Z96.659 Presence of unspecified artificial knee joint; Z85.46 Personal history of malignant neoplasm of prostate; Z87.891 Personal history of nicotine dependence; M81.0 Age-related osteoporosis without current pathological fracture
CPT/HCPCS: 73140; 99213; G0463

== ENCOUNTER 2021-11-21 17:36 | Emergency (ER) | payer MEDICARE, SELFPAY ==
[2021-11-21 17:47] VITALS: BP 144/91; PULSE 107; RESP 16; TEMP 36.3; O2SAT 100
--- NOTE | 2021-11-21 17:52 | ED.ALLEREA ---
HPI - Allergic Reaction General Chief complaint: Allergic Reaction <NOHEMI Smith Last Filed: 11/21/21 20:29> Stated complaint: allergic reaction <NOHEMI Smith Last Filed: 11/21/21 20:29> Time Seen by Provider: 11/21/21 17:42 <NOHEMI Smith Last Filed: 11/21/21 20:29> History of Present Illness HPI narrative: 66-year-old male here for evaluation of redness, itching and swelling over the past 4 hours. Patient states that he has an allergy to contrast dye, and he had a CT myelogram this morning. He did complete the pretreatment regimen with steroids and Benadryl, but he states about 2 hours after receiving the study, he began to feel flushed in his face and itchy. States that this is the sensation that he had with receiving contrast dye in the past. He denies any respiratory complaints. Has not taken any more Benadryl since this morning. He does have an EpiPen at home, but states it is , and therefore did not use it. <NOHEMI Smith Last Filed: 11/21/21 20:29> Related Data Home medications: Home Medications Medication Instructions Recorded Confirmed morphine 15 mg immediate release 15 mg PO .five times daily 05/24/20 10/16/21 tablet <NOHEMI Smith Last Filed: 11/21/21 20:29> Allergies/adverse reactions: Allergies Allergy/AdvReac Type Severity Reaction Status Date / Time bee venom protein (honey bee) Allergy Intermediate Nausea and Verified 10/16/21 10:07 Vomiting iodine Allergy Intermediate FACIAL Verified 10/16/21 10:07 SWELLING,ITCHING Contrast Media Allergy Intermediate FACIAL Uncoded 09/11/21 09:32 SWELLING, ITCHING, AND REDNESS <NOHEMI Smith Last Filed: 11/21/21 20:29> Review of Systems Review of Systems: Gen: Denies fevers or chills Eyes: Denies eye pain or visual change ENT: Denies congestion Respiratory: Denies shortness of breath or cough CV: Denies chest pain or palpitations GI: Denies abdominal pain nausea, emesis or diarrhea : denies burning, urgency, frequency or hematuria Musculoskeletal: Denies back pain or muscle pain Neuro: Denies numbness, tingling, weakness or focal weakness Skin: Reports facial swelling and redness Except as documented, all other systems reviewed and negative <Evita Blanco PA-C - Last Filed: 11/21/21 20:29> [facility] Past Medical History Medical History: Medical History Anxiety Arthritis Bronchitis Cataracts, bilateral Coarse tremors Constipation CVA (cerebrovascular accident) DDD (degenerative disc disease) Depression Diverticulitis Fall (on) (from) other stairs and steps, initial encounter GERD (gastroesophageal reflux disease) H/O non anemic vitamin B12 deficiency H/O prostate cancer Hiatal hernia HLD (hyperlipidemia) Hypertension Left knee pain Lesion of ureter Lumbar stenosis Lumbar vertebral fracture Melena Migraines Neuropathy Normal colonoscopy (~2009) Osteoporosis Pacemaker Peripheral neuropathy Pneumonia Right wrist fracture Seasonal allergies Sleep apnea Ulcer UTI (urinary tract infection) Vision abnormalities <Evita Blanco PA-C - Last Filed: 11/21/21 20:29> Surgical History Surgical History: Surgical History H/O right knee surgery H/O spinal fusion C4-C7-T1 History of appendectomy History of orthopedic surgery cleft hand, bilateral shoulder, left 3rd finger, jaw History of penile implant History of repair of hiatal hernia Hx of cholecystectomy Hx of tonsillectomy Knee joint replacement status S/P TURP (transurethral resection of prostate) <Evita Blanco PA-C - Last Filed: 11/21/21 20:29> Family History Family History: Family History Father Family
[2021-11-21] MEDS: diphenhydrAMINE HCl INJ 50 MG/ML VIAL IV PUSH (17:56)
[2021-11-21] MEDS: methylPREDNISolone SOD SUCC 125 MG VIAL IV PUSH (17:56)
[2021-11-21] MEDS: FAMOTIDINE 20 MG/2 ML VIAL IV PUSH (17:56)
[2021-11-21 18:10] VITALS: PULSE 98; RESP 15; O2SAT 95
[2021-11-21 18:17] VITALS: PULSE 95; RESP 15; O2SAT 95
[2021-11-21 18:30] VITALS: PULSE 92; RESP 17; O2SAT 95
[2021-11-21 18:46] VITALS: PULSE 88; RESP 14; O2SAT 94
--- NOTE | 2021-11-21 19:20 | PC.NURSE ---
Report received from MATI Dye. Assumed care of patient at this time.
[2021-11-21 20:27] VITALS: BP 148/84; PULSE 74; RESP 20; O2SAT 96
== END 2021-11-21 20:29 | disposition home or self-care (01) ==
PROVIDERS: Emergency Provider Emergency Medicine; PCP Family Medicine
DX: L29.9 Pruritus, unspecified (principal); R23.2 Flushing; T50.8X5A Adverse effect of diagnostic agents, initial encounter; E78.5 Hyperlipidemia, unspecified; I10 Essential (primary) hypertension; G62.9 Polyneuropathy, unspecified; E53.8 Deficiency of other specified B group vitamins; M81.0 Age-related osteoporosis without current pathological fracture; K21.9 Gastro-esophageal reflux disease without esophagitis; F41.9 Anxiety disorder, unspecified; Z95.0 Presence of cardiac pacemaker; Z85.46 Personal history of malignant neoplasm of prostate; Z86.73 Personal history of transient ischemic attack (TIA), and cerebral infarction without residual deficits; Z87.01 Personal history of pneumonia (recurrent); Z87.440 Personal history of urinary (tract) infections; Z98.1 Arthrodesis status; Z96.659 Presence of unspecified artificial knee joint; Z87.891 Personal history of nicotine dependence
CPT/HCPCS: 96374; 96375; 99284; J1200; J2930

== ENCOUNTER 2021-11-22 16:07 | Emergency (ER) | payer MEDICARE, SELFPAY ==
[2021-11-22 16:39] VITALS: BP 113/75; PULSE 94; RESP 16; TEMP 36.4; O2SAT 99
--- NOTE | 2021-11-22 17:04 | ED.ALLEREA ---
HPI - Allergic Reaction General Chief complaint: Allergic Reaction Stated complaint: allergic reaction History of Present Illness HPI narrative: 66-year-old male presented the emergency room for evaluation of facial swelling and itching that started 3 hours prior to arrival. Patient states that he had a myelogram and was exposed to contrast media. He was seen here yesterday and was given the allergic reaction cocktail. Patient states that symptoms resolved. He was sent home with an EpiPen. Today, patient states the swelling and itching returned. Patient states he took a Benadryl with no relief. Patient did not take his EpiPen stating that it was not bad enough for him to take but elected to come to the emergency room. Related Data Home Medications Medication Instructions Recorded Confirmed morphine 15 mg immediate release 15 mg PO .five times daily 05/24/20 10/16/21 tablet Allergies Allergy/AdvReac Type Severity Reaction Status Date / Time bee venom protein (honey bee) Allergy Intermediate Nausea and Verified 11/22/21 16:41 Vomiting iodine Allergy Intermediate FACIAL Verified 11/22/21 16:41 SWELLING,ITCHING Contrast Media Allergy Intermediate FACIAL Uncoded 11/22/21 16:41 SWELLING, ITCHING, AND REDNESS Review of Systems Review of Systems: CONSTITUTIONAL: Denies fever, chills, or sweats. EYES: Denies visual changes, redness, or discharge. ENT: Denies rhinorrhea, congestion, sore throat, or otalgia. CARDIOVASCULAR: Denies chest pain, palpitations, or edema. RESPIRATORY: Denies cough or dyspnea. GASTROINTESTINAL: Denies abdominal pain, nausea, vomiting, or diarrhea. GENITOURINARY: Denies dysuria or hematuria. SKIN: Reports facial erythema MUSCULOSKELETAL: Denies back pain, joint pain, or myalgia. NEUROLOGIC: Denies headache, numbness, dizziness, or weakness. PSYCHIATRIC: Denies anxiety or depression. [facility] Past Medical History Medical History Anxiety Arthritis Bronchitis Cataracts, bilateral Coarse tremors Constipation CVA (cerebrovascular accident) DDD (degenerative disc disease) Depression Diverticulitis Fall (on) (from) other stairs and steps, initial encounter GERD (gastroesophageal reflux disease) H/O non anemic vitamin B12 deficiency H/O prostate cancer Hiatal hernia HLD (hyperlipidemia) Hypertension Left knee pain Lesion of ureter Lumbar stenosis Lumbar vertebral fracture Melena Migraines Neuropathy Normal colonoscopy (~2009) Osteoporosis Pacemaker Peripheral neuropathy Pneumonia Right wrist fracture Seasonal allergies Sleep apnea Ulcer UTI (urinary tract infection) Vision abnormalities Surgical History Surgical History H/O right knee surgery H/O spinal fusion C4-C7-T1 History of appendectomy History of orthopedic surgery cleft hand, bilateral shoulder, left 3rd finger, jaw History of penile implant History of repair of hiatal hernia Hx of cholecystectomy Hx of tonsillectomy Knee joint replacement status S/P TURP (transurethral resection of prostate) Family History Family History Father Family history of coronary artery disease Mother Family history of coronary artery disease Other Cerebrovascular accident Diabetes mellitus Family history of cardiovascular disease Hypertension Social History Social History Smoking packs per day: 1 Smoking cigarettes per day: 20.0 Years smoked: 25 Smoking pack-years: 25.00 Smoking status: Former smoker (Quit 20 years ago. 1ppd for 20 years. ) Tobacco type: cigarettes Second hand tobacco smoke exposure: Yes Smoking end date: 04/05/10 Alcohol intake: current Alcohol use details: rare Substance use: never Substance use type: does not use Gender identity (if verbaliz
--- NOTE | 2021-11-22 17:35 | PC.NURSE ---
went into room to dc pt. he was not there. left without papers
== END 2021-11-22 18:23 | disposition home or self-care (01) ==
LOC: ANHED 18:49
PROVIDERS: Emergency Provider Nurse Practitioner Family; PCP Family Medicine
DX: L50.0 Allergic urticaria (principal); T50.8X5A Adverse effect of diagnostic agents, initial encounter; E78.5 Hyperlipidemia, unspecified; I10 Essential (primary) hypertension; G62.9 Polyneuropathy, unspecified; E53.8 Deficiency of other specified B group vitamins; M81.0 Age-related osteoporosis without current pathological fracture; K21.9 Gastro-esophageal reflux disease without esophagitis; F41.9 Anxiety disorder, unspecified; Z95.0 Presence of cardiac pacemaker; Z85.46 Personal history of malignant neoplasm of prostate; Z86.73 Personal history of transient ischemic attack (TIA), and cerebral infarction without residual deficits; Z87.01 Personal history of pneumonia (recurrent); Z87.440 Personal history of urinary (tract) infections; Z98.1 Arthrodesis status; Z96.659 Presence of unspecified artificial knee joint; Z87.891 Personal history of nicotine dependence
CPT/HCPCS: 99281

== ENCOUNTER 2022-01-30 08:17 | Inpatient (IN) | payer MEDICARE, SELFPAY ==
[2022-01-30] VITALS (28 sets, daily range): BP systolic 75–169; BP diastolic 56–90; PULSE 75–89; RESP 6–19; TEMP 36.4–37.4; O2SAT 89–98; BMI 24.3
--- NOTE | ~2022-01-30 | XR_ITS ---
EXAMINATION: XR chest 2V DATE: 01/30/2022 08:55 INDICATION: Weakness TECHNIQUE: AP and lateral views of the chest are obtained. COMPARISON: 12/08/2019 FINDINGS: The lungs are free of acute opacities. No pleural effusion or pneumothorax. The cardiomedia stinal silhouette is normal. There are bridging osteophytes at multiple levels in the spine, consiste nt with diffuse idiopathic skeletal hyperostosis (DISH). A dual lead cardiac pacemaker of the left ch est wall ends with leads in expected locations. There appears to be an orphaned pacemaker lead, uncha nged in position. There are partially imaged surgical changes in the cervical spine. IMPRESSION: 1. No acute cardiopulmonary abnormality. Reviewed, dictated and finalized at location A.
--- NOTE | ~2022-01-30 | US_ITS ---
EXAMINATION: US carotid duplex BI DATE: 01/31/2022 15:45 INDICATION: Dizziness. Ataxia. TECHNIQUE: Grayscale, color Doppler, and pulsed Doppler images of the cervical carotid arteries were obtained. The degree of vessel stenosis is placed in one of the following categories: normal, <50%, 5 0-69%, >=70% but less than near-occlusion, near-occlusion, or total occlusion. Note that percent sten osis relative to normal distal artery lumen diameter is indirectly measured from velocity measurement s as described by Mayito, et al. Radiology 2003; 229:340-346. Notes: Normal: Peak systolic velocity <125 centimeters/sec and no plaque <50%. Peak systolic velocity <125 ( EDV <40; ICA/CCA PSV ratio <2.0; used these factors only a tandem lesions or low cardiac output or co ntralateral disease) 50-69 %: PSV 125-230 (EDV 40-100; ratio 2-4) >= 70% but less than near occlusion: PSV greater than 230 (EDV > 100; ratio> 4.0) Near Occlusion: PSV that is variable; markedly narrowed lumen Occlusion: Absent flow on color/spectral Doppler and no lumen on phelan scale. COMPARISON: None. FINDINGS: RIGHT: The right common carotid artery (CCA) peak systolic velocity (PSV) is 70 cm/s. The right internal car otid artery (ICA) PSV is 52 cm/s. The right ICA end-diastolic velocity (EDV) is 17 cm/s. The right IC A/CCA PSV ratio is 0.8. The external carotid artery (ECA) PSV is 42 cm/s. There is antegrade flow in the right vertebral artery. LEFT: The left CCA PSV is 66 cm/s. The left ICA PSV is 67 cm/s. The left ICA EDV is 26 cm/s. The left ICA/C CA PSV ratio is 1.0. The ECA PSV is 46 cm/s. There is antegrade flow in the left vertebral artery. IMPRESSION: 1. Less than 50% stenosis in the right internal carotid artery by sonographic criteria. 2. Less than 50% stenosis in the left internal carotid artery by sonographic criteria. Reviewed, dictated and finalized at location A. IMPRESSION: 1. Less than 50% stenosis in the right internal carotid artery by sonographic c imtiaz. 2. Less than 50% stenosis in the left internal carotid artery by sonographic kitty kamara.
--- NOTE | ~2022-01-30 | CT_ITS ---
EXAMINATION: CT brain wo con DATE: 01/30/2022 09:02 INDICATION: Shaking. Confusion. TECHNIQUE: Computed tomography (CT) of the head was performed without intravenous contrast. Sagittal and coronal reconstructions were performed. The mA was adjusted according to patient size. Iterative reconstruction technique was employed. The dose-length product was 681.00 mGy-cm. COMPARISON: head CT dated 06/21/2020 FINDINGS: No acute intracranial hemorrhage, acute infarction or abnormal extra axial fluid collection. No significant interval change in mild scattered white matter hypoattenuation consistent with chronic small vessel ischemic disease. Ventricles are normal and symmetric. No mass/mass effect. Small bila teral mastoid effusions. Small mucous retention cyst in the right maxillary sinus. The orbits are nor mal. IMPRESSION: 1. Normal aging brain. No acute intracranial process. Reviewed, dictated and finalized at location A.
--- NOTE | 2022-01-30 08:25 | ECG_ITS ---
Measurements Intervals [place] Rate: 88 P: 43 [place]: 197 QRS: 9 QRSD: 117 T: 55 QT: 361 QTc: 439 Interpretive Statements SINUS RHYTHM NONSPECIFIC INTRAVENTRICULAR CONDUCTION DELAY BORDERLINE ECG COMPARED TO ECG 12/08/2019 16:57:01 HEART RATE HAS DECREASED Electronically Signed On 01-30-2022 16:42:18 CDT by Man Lebron M.D.
--- NOTE | 2022-01-30 08:26 | ED.GENADULT ---
HPI - General Adult General Chief complaint: Weakness Stated complaint: weakness Time Seen by Provider: 01/30/22 08:25 Source: patient, family, EMS and RN notes reviewed Mode of arrival: EMS Limitations: no limitations History of Present Illness HPI narrative: 66 years old white male came from home by ambulance because of general weakness and possible unsteady gait noticed at 4 AM this morning. Also possible confusion. Patient usually wake up at 3:30 every day to drink his coffee. He denies any symptoms including fever, chills, nausea, vomiting, focal neurodeficit. Patient's noticed that the patient gait is not right. History of movement disorder, coarse tremors, lumbar stenosis, neuropathy, hypertension. Patient on morphine, gabapentin, pain management clinic, history of chronic neck and back pain patient have a cane at home which he does not use all the time Possible too much medication, extra doses this morning Related Data Home Medications Medication Instructions Recorded Confirmed morphine 15 mg immediate release 15 mg PO .five times daily 05/24/20 10/16/21 tablet Allergies Allergy/AdvReac Type Severity Reaction Status Date / Time bee venom protein (honey bee) Allergy Intermediate Nausea and Verified 01/30/22 08:36 Vomiting iodine Allergy Intermediate FACIAL Verified 01/30/22 08:36 SWELLING,ITCHING Contrast Media Allergy Intermediate FACIAL Uncoded 01/30/22 08:36 SWELLING, ITCHING, AND REDNESS Review of Systems Review of Systems: All systems reviewed & are unremarkable except as noted in HPI and below PMFSH Past Medical History Medical History Anxiety Arthritis Bronchitis Cataracts, bilateral Coarse tremors Constipation CVA (cerebrovascular accident) DDD (degenerative disc disease) Depression Diverticulitis Fall (on) (from) other stairs and steps, initial encounter GERD (gastroesophageal reflux disease) H/O non anemic vitamin B12 deficiency H/O prostate cancer Hiatal hernia HLD (hyperlipidemia) Hypertension Left knee pain Lesion of ureter Lumbar stenosis Lumbar vertebral fracture Melena Migraines Neuropathy Normal colonoscopy (~2009) Osteoporosis Pacemaker Peripheral neuropathy Pneumonia Right wrist fracture Seasonal allergies Sleep apnea Ulcer UTI (urinary tract infection) Vision abnormalities Surgical History Surgical History H/O right knee surgery H/O spinal fusion C4-C7-T1 History of appendectomy History of orthopedic surgery cleft hand, bilateral shoulder, left 3rd finger, jaw History of penile implant History of repair of hiatal hernia Hx of cholecystectomy Hx of tonsillectomy Knee joint replacement status S/P TURP (transurethral resection of prostate) Family History Family History Father Family history of coronary artery disease Mother Family history of coronary artery disease Other Cerebrovascular accident Diabetes mellitus Family history of cardiovascular disease Hypertension Social History Social History Smoking packs per day: 1 Smoking cigarettes per day: 20.0 Years smoked: 25 Smoking pack-years: 25.00 Smoking status: Former smoker (Quit 20 years ago. 1ppd for 20 years. ) Tobacco type: cigarettes Second hand tobacco smoke exposure: Yes Smoking end date: 04/05/10 Alcohol intake: current Alcohol use details: rare Substance use: never Substance use type: does not use Gender identity (if verbalized by the patient): Male Sexual Orientation (if Verbalized by the Patient): Straight or Heterosexual Spiritual care concerns: No Agree to blood products: No Exam Narrative: General appearance: Well-developed, well-nourished Skin: Normal color Head: Normocephalic, nontraumatic Eyes: Clear
[2022-01-30 08:34] LABS: Basophils Absolute Auto 0.1 K/mm3 (0.0-0.1); Basophils Percent Auto 1.1 % (0.2-1.2); Eosinophils Absolute Auto 0.1 K/mm3 (0-0.3); Eosinophils Percent Auto 1.7 % (0-4.4); Hematocrit 40.1 % (42.0-52.0); Immature Granulocyte Absolute 0.03 K/mm3 (0.00-0.031); Immature Granulocyte Percent A 0.5 % (0-0.5); Immature Platelet Fraction Pct 6.1 % (0.9-11.2); Lymphocytes Absolute Auto 0.82 K/mm3 (0.9-3.2); Mean Corpuscular HGB Conc 32.4 g/dl (32-36); Mean Corpuscular Hemoglobin 30.7 pg (26-34); Mean Corpuscular Volume 94.6 fl (80-100); Mean Platelet Volume 10.8 fl (7.4-10.4); Monocytes Absolute Auto 0.5 K/mm3 (0.1-0.6); Monocytes Percent Auto 7.2 % (2.6-8.5); Neutrophils Absolute Auto 4.8 K/mm3 (1.3-6.7); Neutrophils Percent Auto 76.5 % (45.5-73.1); Platelet Count Result 145 k/mm3 (150-375); Red Blood Count 4.24 M/mm3 (4.6-6.20); Red Cell Distribution Width 13.9 % (11.5-14.5); White Blood Count 6.3 K/mm3 (4.5-10.0)
[2022-01-30 08:44] LABS: Alanine Aminotransferase 13 U/L (6-50); Albumin Level 3.3 g/dL (3.5-5.1); Alkaline Phosphatase 75 U/L (38-126); Anion Gap 3 mmol/L (8-16); Aspartate Amino Transferase 18 U/L (17-59); Bilirubin,Total 0.4 mg/dL (0.2-1.3); Blood Urea Nitrogen 10 mg/dL (9-20); Calcium 8.1 mg/dL (8.4-10.2); Carbon Dioxide 28 mmol/L (22-30); Chloride 103 mmol/L (98-107); Estimated CRCL calculation 54 ml/min; Estimated Glomerular Filt Rate 60; Glucose 99 mg/dL (65-110); Potassium 4.1 mmol/L (3.4-5.0); Sodium 134 mmol/L (137-145)
[2022-01-30 09:29] LABS: Prothrombin Time 13.1 Seconds (11.1-14.7)
[2022-01-30 09:30] LABS: Lactic Acid Reflex 1.2 mmol/L (0.7-2.0); Partial Thromboplastin Time 30.3 SECONDS (22.3-36.8)
[2022-01-30 09:34] LABS: CRP < 0.5 mg/dL (<1.0)
[2022-01-30 10:46] LABS: Add Urine Microscopic? YES; Appearance Urine Cloudy (Clear); Bilirubin Urine Negative (Negative); Blood Urine Negative (Negative); Color Urine Yellow (Yellow); Glucose Urine UA Negative (Negative); Ketones Urine Negative (Negative); Leukocyte Esterase Ur Negative LEU/UL (Negative); Mucus Urine Rare /lpf; Nitrate Urine Negative (Negative); Protein Urine Negative (Negative); RBC Urine 0-2 /hpf (0-2); Squamous Epithelial Cell Urine Rare /hpf (Few); Urobilinogen Urine Negative mg/dL (<2.0)
[2022-01-30] MEDS: SODIUM CHLORIDE 0.9% IV 1,000 ML 150 ML IV CONT ×2 (12:59→18:37)
--- NOTE | 2022-01-30 13:18 | PM.IMHP ---
H&P: HPI History of Present Illness Date/Time: 01/30/22 13:19 Chief Complaint: Weakness Narrative: This is a 66-year-old male patient who has chronic pain and is taking morphine at home as well as gabapentin and nurse preload own. He also takes trazodone at night. The patient came to the emergency room today with complaints of generalized weakness and unsteady gait since 4:00 a.m. this morning. The patient was confused. He could not remember if he took his medications if he only took them once every to come twice. Patient wakes up at 3:00 a.m. every day to drink his coffee. He denies any symptoms of fever chills or any nausea vomiting. No focal weakness is noted. The patient appears to be doing some word searching. The patient has chronic back and neck pain. Patient's H&H is 13.0 and 40.1. His platelet counts 145. Sodium is slightly low at 134. Calcium is low at 8.1. Patient is negative for COVID. Patient's lowest blood pressure was 75/56. The patient was also found to be orthostatic. The patient is not sure if he took too much of his medications. The patient was given IV fluids and IV Tylenol. The patient is being admitted to observation status on the date of service of 01/30/2022. Review of Systems Review of Systems: See HPI All systems reviewed & are unremarkable except as noted in HPI and below Constitutional: Constitutional: Reports as per HPI and Reports no additional constitutional complaints Eyes: Eyes: Reports as per HPI and Reports no additional eye complaints ENT: Reports system reviewed and no additional complaints, except as documented and Reports Normal hearing present Cardiovascular: Cardiovascular: Reports no additional cardiovascular complaints Respiratory: Respiratory: Reports no additional respiratory complaints and Reports no additional respiratory complaints Gastrointestinal: Gastrointestinal: Reports as per HPI and Reports no additional gastrointestinal complaints Musculoskeletal: Musculoskeletal: Reports no additional musculoskeletal complaints Integumentary/Breasts: Skin/Breast: Reports system reviewed and no additional complaints, except as docu and Reports as per HPI Neurologic: Reports system reviewed and no additional complaints, except as documented, Reports as per HPI and Reports Normal hearing present Psychiatric: Psychiatric: Reports no additional psychiatric complaints and Reports as per HPI Endocrine: Endocrine: Reports no additional endocrine complaints Hematologic/Lymphatic: Hematologic/Lymphatic: Reports no additional hematologic/lymphatic complaints Allergic/Immunologic: Allergic/Immunologic: Reports no additional allergic/immunologic complaints [facility] Past Medical History Medical History (Updated 01/30/22 @ 17:15 by Shania Adrian NP) Anxiety Arthritis Bronchitis Cataracts, bilateral Coarse tremors Constipation CVA (cerebrovascular accident) DDD (degenerative disc disease) Depression Diverticulitis Eczema Erectile dysfunction Fall (on) (from) other stairs and steps, initial encounter GERD (gastroesophageal reflux disease) H/O non anemic vitamin B12 deficiency H/O prostate cancer 44 radiation treatments Hiatal hernia HLD (hyperlipidemia) Hypertension Left knee pain Lesion of ureter Lumbar stenosis Lumbar vertebral fracture Melena Migraines Neuropathy Normal colonoscopy (~2009) Osteoporosis Pacemaker Peripheral neuropathy Pneumonia Prostate cancer Right groin pain Right wrist fracture Seasonal allergies Sleep apnea Ulcer UTI (urinary tract infection) Vision abnormalities Surgical History Surgical History (Updated 01/30/22 @ 17:04 by Shania Adrian NP) H/O right knee surgery H/O spinal fusion C4-C7-T1 History of appendectomy History of fundoplication History of orthopedic surgery cleft hand, bilateral shoulder, left 3rd finger, jaw History of penile implant History of repair of hiatal hernia History of transurethral resection of prost
[2022-01-30 13:44] LABS: SARS-CoV-2 RNA PCR Negative
--- NOTE | 2022-01-30 18:22 | ADMGEN ---
This patient, George Concepcion, was admitted to Medical Room 349-01. Patient/family oriented to hospital policies and general routines including ID bracelet, bed and alarms, visiting hours, pain management, procedures, bathroom and other care routines, personal items, smoking policy, room service/diet, and visiting hours. Information on how to activate the Rapid Response Team has been discussed. Patient/Family are encouraged to report perceived risks to care and to ask questions if they do not understand what they are told or what they should do.
[2022-01-30] MEDS: PANTOPRAZOLE SODIUM IV 40 MG VIAL IV PUSH (20:24)
[2022-01-30] MEDS: VENLAFAXINE HCL XR 75 MG CAP.ER.24H 150 MG PO (22:42)
[2022-01-30] MEDS: MORPHINE SULFATE (*CRX) 15 MG TAB IR PO (22:42)
[2022-01-30] MEDS: risperiDONE 1 MG TABLET PO (22:42)
[2022-01-30] MEDS: traZODone HCL 50 MG TABLET 100 MG BY MOUTH (22:42)
[2022-01-31] VITALS (12 sets, daily range): BP systolic 148–170; BP diastolic 68–93; PULSE 71–107; RESP 16–18; TEMP 36.5–36.6; O2SAT 95–98
--- NOTE | 2022-01-31 | ECHO_ITS ---
Patient Info Name: George Concepcion Age: 66 years : 1955 Gender: Male Ht: 70 in Wt: 169 lbs BSA: 1.95 m2 HR: 83 bpm Heart Rhythm: Sinus Rhythm Technical Quality: Fair Exam Date: 01/31/2022 1:01 PM Exam Location: [facility] Patient Status: Outpatient Admit Date: 01/30/2022 Staff Ordering Physician: Shania Adrian NP Attending Provider: Alicia Smallwood MD Referring Physician: Nguyễn ARNDHAWA; Exam Type: CA echo doppler color flow Study Info Complete two-dimensional, color flow and Doppler transthoracic echocardiogram is performed. Summary 1. Complete two-dimensional, color flow and Doppler transthoracic echocardiogram is performed. 2. Left ventricular systolic function is normal, estimated at 50-55%. 3. The left ventricular diastolic function is grade I diastolic dysfunction. 4. Right ventricular systolic function is normal. 5. There is trace mitral valve regurgitation. 6. There is mild tricuspid valve regurgitation. Left Ventricle Left ventricular chamber dimension is normal. Left ventricular systolic function is normal, estimated at 50-55%. There is mildly increased left ventricular wall thickness. The left ventricular diastolic function is grade I diastolic dysfunction. Right Ventricle Right ventricular chamber dimension is normal. Right ventricular systolic function is normal. Left Atria Left atrial chamber dimension is normal. Right Atria Right atrial chamber dimension is normal. Aortic Valve The aortic valve is not well visualized. There is no aortic valve stenosis. There is no aortic valve regurgitation. Pulmonic Valve The pulmonic valve is not well visualized. Mitral Valve The mitral valve has normal leaflets. There is no mitral valve stenosis. There is trace mitral valve regurgitation. Tricuspid Valve The tricuspid valve leaflets are not well visualized. There is mild tricuspid valve regurgitation. Pericardium/Pleural There is no pericardial effusion. Left Ventricular Outflow Tract Name Value Normal LVOT 2D LVOT Diameter 2.1 cm LVOT Doppler LVOT Peak Gradient 2 mmHg LVOT Mean Gradient 1 mmHg LVOT VTI 20 cm LVOT VTI/AV VTI Ratio 0.9 LVOT Stroke Volume 72 ml LVOT CO 5.7 l/min LVOT CI 2.9 l/min/m2 Pulmonic Valve Name Value Normal PV Doppler PV Peak Gradient 3 mmHg Mitral Valve Name Value Normal MV Doppler MV Decel [place]
[2022-01-31] MEDS: SODIUM CHLORIDE 0.9% IV 1,000 ML 150 ML IV CONT ×4 (01:33→22:48)
[2022-01-31 05:52] LABS: Basophils Absolute Auto 0.1 K/mm3 (0.0-0.1); Eosinophils Absolute Auto 0.1 K/mm3 (0-0.3); Eosinophils Percent Auto 1.9 % (0-4.4); Hematocrit 41.2 % (42.0-52.0); Hemoglobin 13.5 g/dL (14.0-18.0); Immature Granulocyte Absolute 0.02 K/mm3 (0.00-0.031); Immature Granulocyte Percent A 0.3 % (0-0.5); Immature Platelet Fraction Pct 4.8 % (0.9-11.2); Lymphocytes Absolute Auto 0.83 K/mm3 (0.9-3.2); Mean Corpuscular HGB Conc 32.8 g/dl (32-36); Mean Corpuscular Hemoglobin 30.5 pg (26-34); Mean Platelet Volume 10.8 fl (7.4-10.4); Monocytes Absolute Auto 0.5 K/mm3 (0.1-0.6); Monocytes Percent Auto 8.2 % (2.6-8.5); Neutrophils Absolute Auto 4.4 K/mm3 (1.3-6.7); Neutrophils Percent Auto 74.6 % (45.5-73.1); Platelet Count Result 143 k/mm3 (150-375); Red Blood Count 4.43 M/mm3 (4.6-6.20); Red Cell Distribution Width 13.2 % (11.5-14.5); White Blood Count 5.9 K/mm3 (4.5-10.0)
[2022-01-31 06:02] LABS: Alanine Aminotransferase 11 U/L (6-50); Albumin Level 3.3 g/dL (3.5-5.1); Alkaline Phosphatase 90 U/L (38-126); Anion Gap 8 mmol/L (8-16); Aspartate Amino Transferase 18 U/L (17-59); Bilirubin,Total 0.6 mg/dL (0.2-1.3); Blood Urea Nitrogen 9 mg/dL (9-20); Calcium 7.8 mg/dL (8.4-10.2); Carbon Dioxide 26 mmol/L (22-30); Chloride 103 mmol/L (98-107); Estimated CRCL calculation 71 ml/min; Estimated Glomerular Filt Rate > 60; Glucose 80 mg/dL (65-110); Magnesium 1.9 mg/dL (1.6-2.3); Potassium 3.6 mmol/L (3.4-5.0); Sodium 137 mmol/L (137-145)
[2022-01-31 07:42] LABS: Thyroid Stimulating Hormone Reflex 0.723 uIU/mL (0.465-4.68)
[2022-01-31 07:53] LABS: Vitamin D 25 Hydroxy 16.2 ng/mL
--- NOTE | 2022-01-31 08:16 | PM.IMPN ---
Progress Note: A&P Assessment and Plan (1) Ataxia: Code(s): R27.0 - Ataxia, unspecified Status: Acute Assessment and Plan: appreciate neurology consultation, completely resolved at this time (2) Depression: Code(s): F32.9 - Major depressive disorder, single episode, unspecified Status: Chronic Assessment and Plan: continue home medications (3) GERD (gastroesophageal reflux disease): Qualifiers: Esophagitis presence: esophagitis presence not specified Qualified Code(s): K21.9 - Gastro-esophageal reflux disease without esophagitis Code(s): K21.9 - Gastro-esophageal reflux disease without esophagitis Status: Acute Assessment and Plan: PPI (4) HLD (hyperlipidemia): Code(s): E78.5 - Hyperlipidemia, unspecified Status: Chronic Assessment and Plan: Continue with simvastatin (5) Hypertension: Qualifiers: Hypertension type: primary hypertension Qualified Code(s): I10 - Essential (primary) hypertension Code(s): I10 - Essential (primary) hypertension Status: Chronic Assessment and Plan: positive orthostatic blood pressure, reassess tomorrow after gentle IV fluid hydration (6) Weakness: Code(s): R53.1 - Weakness Status: Acute Assessment and Plan: PT/OT pending (7) Vitamin D deficiency: Code(s): E55.9 - Vitamin D deficiency, unspecified Status: Acute Assessment and Plan: vitamin d level was 16, will initiate repletion with ergocalciferol 50K units weekly, f/u outpatient in 6-12 weeks to recheck (8) Altered mental state: Code(s): R41.82 - Altered mental status, unspecified Status: Acute Assessment and Plan: resolved at this time, cardio consult pending to interrogate ppm and check for cardiogenic etiologies d/t associated bradycardia/hypotension ddx includes vasovagal syncope with dehydration and sleep deprivation vs seizure with postictal state vs TIA Plan DVT prophylaxis with SCDs GI prophylaxis not indicated Code status full code Subjective Date/time seen: 01/31/22 08:17 Interval history: No overnight events noted. No chest pain or shortness of breath. No nausea, vomiting or diarrhea. No fevers or chills. in the room, answered all questions. Review of Systems Review of Systems: 12 point review of systems was assessed and was negative except as noted in the HPI Exam Narrative: General: No acute distress, alert and oriented per baseline HEENT: Atraumatic, normocephalic, mucous membranes moist CV: Regular rate and rhythm, S1, S2 Lungs: Clear to auscultation bilaterally, no rales or crackles noted, no wheezes, good air entry Abdomen: Soft, nontender, nondistended Extremities: Normal to inspection Skin: No rashes noted, no lesions or wounds seen Psych: Euthymic, normal affect Objective Data Vital Signs Vital Signs: Vital Signs - 24 hr 01/30/22 08:30 01/30/22 09:58 01/30/22 10:17 Temperature Pulse Rate 87 80 78 Respiratory Rate 14 Blood Pressure 100/70 Pulse Oximetry 96 01/30/22 10:19 01/30/22 10:20 01/30/22 10:26 Temperature Pulse Rate 78 83 77 Respiratory Rate 12 Blood Pressure 85/62 L 75/56 L 117/73 Pulse Oximetry 98 01/30/22 08:31 01/30/22 09:30 01/30/22 09:45 Temperature Pulse Rate 87 77 77 Respiratory Rate 11 L 6 L Blood Pressure 100/69 Pulse Oximetry 93 98 95 01/30/22 10:11 01/30/22 10:15 01/30/22 10:18 Temperature Pulse Rate 78 79 78 Respiratory Rate 16 12 12 Blood Pressure 100/70 Pulse Oximetry 01/30/22 10:20 01/30/22 10:22 01/30/22 10:25 Temperature Pulse Rate 79 85 77 Respiratory Rate 19 15 15 Blood Pressure 85/62 L 75/56 L 117/73 Pulse Oximetry 93 01/30/22 10:30 01/30/22 10:45 01/30/22 11:19 Temperature Pulse Rate 75 76 76 Respiratory Rate 12 9 L 9 L Blood Pressure Pulse Oximetry 89 L 01/30/22 11:30 10
[2022-01-31] MEDS: CLOPIDOGREL BISULFATE 75 MG TABLET PO (08:33)
[2022-01-31] MEDS: busPIRone HCL 5 MG TABLET 15 MG PO (08:33)
[2022-01-31] MEDS: PANTOPRAZOLE SODIUM IV 40 MG VIAL IV PUSH ×2 (08:33→21:04)
[2022-01-31] MEDS: ERGOCALCIFEROL 50,000 UNITS CAPSULE 50000 UNITS PO (09:36)
--- NOTE | 2022-01-31 09:46 | WPDNEURCNPN ---
Assessment and Plan Assessment and plan (1) Ataxia: Code(s): R27.0 - Ataxia, unspecified Status: Acute (2) Orthostatic hypotension: Code(s): I95.1 - Orthostatic hypotension Status: Acute (3) Slurred speech: Code(s): R47.81 - Slurred speech Status: Acute Assessment and Plan: Mr. Concepcion is a 66 year old male with a history of chronic pain, who presented due to concerns for ataxia and dysarthria that self-resolved. He was noted to have orthostatic hypotension on vitals, which could have contributed to the unsteadiness. Patient is also unsure about whether he may have taken extra gabapentin by mistake. Also considering TIA. Unable to obtain MRI/MRA due to hardware in neck and CTA due to contrast allergy. Plan - Carotid ultrasound and echo pending - Patient is already on Plavix and Simvastatin Consult date: 01/31/22 Time Seen: 09:46 Reason for consult: Ataxia HPI: George Concepcion is a 66 year old male with a history of chronic pain who presented yesterday due to ataxia and slurred speech. Patient typically wakes up around 3AM. Around 4AM he noted slurred speech and difficulty walking. He had no other focal symptoms. He does take morphine and gabapentin for chronic back pain. He thinks he may have taken an extra dose of gabapentin the night before. His other medications include trazodone, risperidone, venlafaxine, and buspirone. He was taken to [facility]. He had a normal CT head. His BP on admission was 100/70 and he was notably orthostatic (BP dropped to 75/56). He was admitted for further work-up. This morning, patient reports he feels back to baseline. His speech has normalized and he has been able to walk to the bathroom without any issues. MRI cannot be obtained due to plates in neck and CTA cannot be obtained due to patient's contrast allergy. Review of Systems Constitutional: Constitutional: Reports no additional constitutional complaints Eyes: Eyes: Reports no additional eye complaints ENT: Reports system reviewed and no additional complaints, except as documented Cardiovascular: Cardiovascular: Reports no additional cardiovascular complaints Respiratory: Respiratory: Reports no additional respiratory complaints Gastrointestinal: Gastrointestinal: Reports constipation Genitourinary: Genitourinary: Reports no additional male genitourinary complaints Musculoskeletal: Musculoskeletal: Reports back pain and Reports neck pain Integumentary/Breasts: Skin/Breast: Reports system reviewed and no additional complaints, except as docu Neurologic: Reports as per HPI, Reports Abnormal speech present and Reports abnormal gait Psychiatric: Psychiatric: Reports depression PMFSH Past Medical History Medical History Anxiety Arthritis Bronchitis Cataracts, bilateral Coarse tremors Constipation CVA (cerebrovascular accident) DDD (degenerative disc disease) Depression Diverticulitis Eczema Erectile dysfunction Fall (on) (from) other stairs and steps, initial encounter GERD (gastroesophageal reflux disease) H/O non anemic vitamin B12 deficiency H/O prostate cancer 44 radiation treatments Hiatal hernia HLD (hyperlipidemia) Hypertension Left knee pain Lesion of ureter Lumbar stenosis Lumbar vertebral fracture Melena Migraines Neuropathy Normal colonoscopy (~2009) Osteoporosis Pacemaker Peripheral neuropathy Pneumonia Prostate cancer Right groin pain Right wrist fracture Seasonal allergies Sleep apnea Ulcer UTI (urinary tract infection) Vision abnormalities Surgical History Surgical History H/O right knee surgery H/O spinal fusion C4-C7-T1 History of appendectomy History of fundoplication History of orthopedic surgery cleft hand, bilateral shoulder, left 3rd finger, jaw History of penile implant History of repair of hiatal hernia History of transurethral
--- NOTE | 2022-01-31 14:23 | PC.NURSE ---
Call made to exchange to page Dr. Parsons for consult.
[2022-01-31] MEDS: SIMVASTATIN 20 MG TABLET 40 MG PO (17:06)
[2022-01-31] MEDS: risperiDONE 1 MG TABLET PO (21:03)
[2022-01-31] MEDS: VENLAFAXINE HCL XR 75 MG CAP.ER.24H 150 MG PO (21:03)
[2022-01-31] MEDS: traZODone HCL 50 MG TABLET 100 MG BY MOUTH (21:03)
[2022-02-01] VITALS (8 sets, daily range): BP systolic 156–171; BP diastolic 80–102; PULSE 76–95; RESP 18–20; TEMP 36.3–36.6; O2SAT 98–100
[2022-02-01 05:40] LABS: Basophils Absolute Auto 0.1 K/mm3 (0.0-0.1); Basophils Percent Auto 0.7 % (0.2-1.2); Eosinophils Percent Auto 0.1 % (0-4.4); Hematocrit 40.7 % (42.0-52.0); Hemoglobin 13.7 g/dL (14.0-18.0); Immature Granulocyte Absolute 0.02 K/mm3 (0.00-0.031); Immature Granulocyte Percent A 0.3 % (0-0.5); Lymphocytes Absolute Auto 0.59 K/mm3 (0.9-3.2); Lymphocytes Percent Auto 8.8 % (18.3-44.2); Mean Corpuscular HGB Conc 33.7 g/dl (32-36); Mean Corpuscular Hemoglobin 30.2 pg (26-34); Mean Corpuscular Volume 89.6 fl (80-100); Monocytes Absolute Auto 0.4 K/mm3 (0.1-0.6); Monocytes Percent Auto 5.2 % (2.6-8.5); Neutrophils Absolute Auto 5.7 K/mm3 (1.3-6.7); Neutrophils Percent Auto 84.9 % (45.5-73.1); Platelet Count Result 147 k/mm3 (150-375); Red Blood Count 4.54 M/mm3 (4.6-6.20); White Blood Count 6.7 K/mm3 (4.5-10.0)
[2022-02-01 05:42] LABS: Alanine Aminotransferase 13 U/L (6-50); Albumin Level 3.6 g/dL (3.5-5.1); Alkaline Phosphatase 92 U/L (38-126); Anion Gap 8 mmol/L (8-16); Aspartate Amino Transferase 21 U/L (17-59); Bilirubin,Total 0.6 mg/dL (0.2-1.3); Blood Urea Nitrogen 8 mg/dL (9-20); Calcium 8.1 mg/dL (8.4-10.2); Carbon Dioxide 23 mmol/L (22-30); Chloride 106 mmol/L (98-107); Estimated CRCL calculation 79 ml/min; Estimated Glomerular Filt Rate > 60; Glucose 104 mg/dL (65-110); Potassium 3.5 mmol/L (3.4-5.0); Sodium 137 mmol/L (137-145)
[2022-02-01] MEDS: SODIUM CHLORIDE 0.9% IV 1,000 ML 150 ML IV CONT (08:28)
[2022-02-01] MEDS: CLOPIDOGREL BISULFATE 75 MG TABLET PO (08:29)
[2022-02-01] MEDS: busPIRone HCL 5 MG TABLET 15 MG PO (08:30)
[2022-02-01] MEDS: PANTOPRAZOLE SODIUM IV 40 MG VIAL IV PUSH (08:30)
[2022-02-01] MEDS: MORPHINE SULFATE (*CRX) 15 MG TAB IR PO (08:40)
--- NOTE | 2022-02-01 10:56 | PM.CNCAR ---
Assessment and Plan Assessment and plan (1) Altered mental state: Code(s): R41.82 - Altered mental status, unspecified Status: Acute Assessment and Plan: An echo has already been done - will follow up on the results. Likely due to his significant orthostatic hypotension vs medication induced (patient may have taken extra pain medication). Telemetry thus far shows sinus rhythm without any arrhythmias. Pacemaker interrogation order placed - will follow up once interrogation is done. (2) Pacemaker: Code(s): Z95.0 - Presence of cardiac pacemaker Status: Acute Assessment and Plan: Pacemaker interrogation order placed - will follow up once interrogation is done. History of Present Illness History of Present Illness Consult date/time: 02/01/22 10:56 Requesting physician: Holly Xavier DO Consult reason: Other (Syncope, pacemaker interrogation) Reason For Visit: Orthostatic Hypotension/General Weakness Narrative: Patient is a 66-year-old male who we are being consulted for altered mental status and pacemaker interrogation. Patient states that last he woke up to go to the bathroom and he became confused. Patient is not really sure if he lost consciousness or not or just fell back asleep. Patient had some slurred speech as well. Patient was noted to be significantly orthostatic upon presentation here. Patient has a history of SSS. Follows with Dr. Valdez. Recent device check in 09/2021 shows normal functioning device with 10.7 years of battery life. Review of Systems Review of Systems: 12-point ROS obtained. Negative, unless stated in HPI. [facility] Past Medical History Medical History Anxiety Arthritis Bronchitis Cataracts, bilateral Coarse tremors Constipation CVA (cerebrovascular accident) DDD (degenerative disc disease) Depression Diverticulitis Eczema Erectile dysfunction Fall (on) (from) other stairs and steps, initial encounter GERD (gastroesophageal reflux disease) H/O non anemic vitamin B12 deficiency H/O prostate cancer 44 radiation treatments Hiatal hernia HLD (hyperlipidemia) Hypertension Left knee pain Lesion of ureter Lumbar stenosis Lumbar vertebral fracture Melena Migraines Neuropathy Normal colonoscopy (~2009) Osteoporosis Pacemaker Peripheral neuropathy Pneumonia Prostate cancer Right groin pain Right wrist fracture Seasonal allergies Sleep apnea Ulcer UTI (urinary tract infection) Vision abnormalities Vitamin D deficiency Surgical History Surgical History H/O right knee surgery H/O spinal fusion C4-C7-T1 History of appendectomy History of fundoplication History of orthopedic surgery cleft hand, bilateral shoulder, left 3rd finger, jaw History of penile implant History of repair of hiatal hernia History of transurethral resection of prostate Hx of cholecystectomy Hx of tonsillectomy Knee joint replacement status S/P TURP (transurethral resection of prostate) Family History Family History Father Family history of coronary artery disease Mother Family history of coronary artery disease Other Cerebrovascular accident Diabetes mellitus Family history of cardiovascular disease Hypertension Social History Social History Social History: The patient lives with his who is the power trademark attorney. He is retired from [employer]. The patient has 1 son. He is a former smoker. He denies any alcohol marijuana or illicit drugs. Code status full code Smoking packs per day: 1 Smoking cigarettes per day: 20.0 Years smoked: 25 Smoking pack-years: 25.00 Smoking status: Former smoker Tobacco type: cigarettes Second hand tobacco smoke exposure: Yes Smoking end date: 04/05/10 Alcohol intake: current Drinks per
--- NOTE | 2022-02-01 17:09 | PM.DS ---
DS: Admitting Diagnosis Discharge Date February 12, 2022 Admitting Diagnosis Generalized weakness DS: Discharge Diagnosis Discharge Diagnosis (1) Ataxia: Code(s): R27.0 - Ataxia, unspecified Status: Acute Assessment and Plan: appreciate neurology consultation, completely resolved at this time (2) Depression: Code(s): F32.9 - Major depressive disorder, single episode, unspecified Status: Chronic Assessment and Plan: continue home medications (3) GERD (gastroesophageal reflux disease): Qualifiers: Esophagitis presence: esophagitis presence not specified Qualified Code(s): K21.9 - Gastro-esophageal reflux disease without esophagitis Code(s): K21.9 - Gastro-esophageal reflux disease without esophagitis Status: Acute Assessment and Plan: PPI (4) HLD (hyperlipidemia): Code(s): E78.5 - Hyperlipidemia, unspecified Status: Chronic Assessment and Plan: Continue with simvastatin (5) Hypertension: Qualifiers: Hypertension type: primary hypertension Qualified Code(s): I10 - Essential (primary) hypertension Code(s): I10 - Essential (primary) hypertension Status: Chronic Assessment and Plan: positive orthostatic blood pressure, reassess tomorrow after gentle IV fluid hydration (6) Weakness: Code(s): R53.1 - Weakness Status: Acute Assessment and Plan: PT/OT pending (7) Vitamin D deficiency: Code(s): E55.9 - Vitamin D deficiency, unspecified Status: Acute Assessment and Plan: vitamin d level was 16, will initiate repletion with ergocalciferol 50K units weekly, f/u outpatient in 6-12 weeks to recheck (8) Altered mental state: Code(s): R41.82 - Altered mental status, unspecified Status: Acute Assessment and Plan: resolved at this time, cardio consult pending to interrogate ppm and check for cardiogenic etiologies d/t associated bradycardia/hypotension ddx includes vasovagal syncope with dehydration and sleep deprivation vs seizure with postictal state vs TIA Plan DVT prophylaxis with SCDs GI prophylaxis not indicated Code status full code DS: Summary Hospital Course Hospital Course: 66-year-old male patient who has chronic pain and is taking morphine at home as well as gabapentin and nurse preload own.? He also takes trazodone at night.? The patient came to the emergency room today with complaints of generalized weakness and unsteady gait since 4:00 a.m. this morning.? The patient was confused.? He could not remember if he took his medications if he only took them once every to come twice.? Patient wakes up at 3:00 a.m. every day to drink his coffee.? He denies any symptoms of fever chills or any nausea vomiting.? No focal weakness is noted.? The patient appears to be doing some word searching.? The patient has chronic back and neck pain.? Patient's H&H is 13.0 and 40.1.? His platelet counts 145.? Sodium is slightly low at 134.? Calcium is low at 8.1.? Patient is negative for COVID.? Patient's lowest blood pressure was 75/56.? The patient was also found to be orthostatic.? The patient is not sure if he took too much of his medications.? The patient was given IV fluids and IV Tylenol. Patient's symptoms resolved. Neurology was consulted and recommended echo and carotid ultrasound. Echo showed an EF of 50-55% with grade 1 diastolic dysfunction, minimal valvular dysfunction, no pulmonary hypertension. Cardiology was also consulted. His pacemaker was interrogated and showed normal functioning with an estimated 10 more years left of battery life. Syncopal episode thought to be secondary to dehydration versus possible accidental overdose on medication. He was discharged in good condition with close outpatient follow-up and strict return precautions. Time Spent with Patient Time attestation: Total time spent providing and/or coordinating discharge services:
[2022-02-01] MEDS: SIMVASTATIN 20 MG TABLET 40 MG PO (17:13)
--- NOTE | 2022-02-01 18:29 | PC.NURSE ---
Per hospitalist, ok for PT to discharge at this time.
[2022-02-04 08:04] LABS: Ionized Calcium 4.6 mg/dL (4.8-5.6)
== END 2022-02-01 18:10 | disposition home or self-care (01) | DRG 312 ==
LOC: ANHED 12:22 → ANH3MEDSUR 15:24 → ANH3MED 17:11
PROVIDERS: Nurse Practitioner; Admitting Provider Family Medicine; Emergency Provider Emergency Medicine; PCP Family Medicine; Visit Provider Student in an Organized Health Care Education/Training Program
DX: I95.1 Orthostatic hypotension (principal); R27.0 Ataxia, unspecified; R47.81 Slurred speech; F32.9 Major depressive disorder, single episode, unspecified; E78.5 Hyperlipidemia, unspecified; E55.9 Vitamin D deficiency, unspecified; E53.8 Deficiency of other specified B group vitamins; F41.9 Anxiety disorder, unspecified; G62.9 Polyneuropathy, unspecified; G47.30 Sleep apnea, unspecified; G89.29 Other chronic pain; I10 Essential (primary) hypertension; I49.5 Sick sinus syndrome; K21.9 Gastro-esophageal reflux disease without esophagitis; M54.9 Dorsalgia, unspecified; M54.2 Cervicalgia; M19.90 Unspecified osteoarthritis, unspecified site; H26.9 Unspecified cataract; R41.82 Altered mental status, unspecified; R25.1 Tremor, unspecified; Z20.822 Contact with and (suspected) exposure to COVID-19; Z86.73 Personal history of transient ischemic attack (TIA), and cerebral infarction without residual deficits; Z98.1 Arthrodesis status; Z85.46 Personal history of malignant neoplasm of prostate; Z95.0 Presence of cardiac pacemaker; Z90.49 Acquired absence of other specified parts of digestive tract; Z96.659 Presence of unspecified artificial knee joint; Z87.891 Personal history of nicotine dependence; Z79.02 Long term (current) use of antithrombotics/antiplatelets
CPT/HCPCS: 36415; 70450; 71046; 80053; 81001; 82306; 82330; 82607; 82728; 82746; 83605; 83735; 84100; 84443; 85025; 85055; 85610; 85730; 86140; 87040; 93005; 93306; 93880; 96361; 96365; 96375; 96376; 97161; 97165; 99285; A9270; C9113; G0378; J0131; J7030; U0003; U0005

== ENCOUNTER 2022-06-12 14:08 | Outpatient (NON) | payer MEDICARE, SELFPAY ==
[2022-06-12 15:54] LABS: Hematocrit 32.2 % (42.0-52.0); Hemoglobin 9.4 g/dL (14.0-18.0); Mean Corpuscular HGB Conc 29.2 g/dl (32-36); Mean Corpuscular Hemoglobin 27.5 pg (26-34); Mean Corpuscular Volume 94.2 fl (80-100); Mean Platelet Volume 9.4 fl (7.4-10.4); Platelet Count Result 429 k/mm3 (150-375); Red Blood Count 3.42 M/mm3 (4.6-6.20); Red Cell Distribution Width 16.3 % (11.5-14.5); White Blood Count 6.5 K/mm3 (4.5-10.0)
[2022-06-12 16:01] LABS: Alanine Aminotransferase 24 U/L (6-50); Albumin Level 3.2 g/dL (3.5-5.1); Alkaline Phosphatase 130 U/L (38-126); Anion Gap 6 mmol/L (8-16); Aspartate Amino Transferase 25 U/L (17-59); Bilirubin,Total 0.5 mg/dL (0.2-1.3); Blood Urea Nitrogen 10 mg/dL (9-20); Calcium 8.4 mg/dL (8.4-10.2); Carbon Dioxide 29 mmol/L (22-30); Chloride 99 mmol/L (98-107); Estimated Glomerular Filt Rate > 60; Glucose 101 mg/dL (65-110); Potassium 3.6 mmol/L (3.4-5.0); Sodium 134 mmol/L (137-145)
== END 2022-06-12 14:09 | disposition home or self-care (01) ==
PROVIDERS: PCP Family Medicine; Visit Provider Family Medicine
DX: I10 Essential (primary) hypertension (principal)
CPT/HCPCS: 80053; 85027

== ENCOUNTER 2022-06-25 09:47 | Outpatient (NON) | payer MEDICARE, SELFPAY ==
[2022-06-25 10:07] LABS: Hematocrit 37.9 % (42.0-52.0); Hemoglobin 11.4 g/dL (14.0-18.0); Mean Corpuscular HGB Conc 30.1 g/dl (32-36); Mean Corpuscular Hemoglobin 27.7 pg (26-34); Platelet Count Result 241 k/mm3 (150-375); Red Blood Count 4.12 M/mm3 (4.6-6.20); Red Cell Distribution Width 15.8 % (11.5-14.5); White Blood Count 5.9 K/mm3 (4.5-10.0)
[2022-06-25 10:22] LABS: Alanine Aminotransferase 17 U/L (6-50); Albumin Level 3.5 g/dL (3.5-5.1); Alkaline Phosphatase 146 U/L (38-126); Anion Gap 7 mmol/L (8-16); Aspartate Amino Transferase 25 U/L (17-59); Bilirubin,Total 0.6 mg/dL (0.2-1.3); Blood Urea Nitrogen 13 mg/dL (9-20); Calcium 9.1 mg/dL (8.4-10.2); Carbon Dioxide 31 mmol/L (22-30); Chloride 102 mmol/L (98-107); Estimated Glomerular Filt Rate > 60; Glucose 90 mg/dL (65-110); Potassium 3.6 mmol/L (3.4-5.0); Sodium 140 mmol/L (137-145)
== END 2022-06-25 09:48 | disposition home or self-care (01) ==
PROVIDERS: PCP Family Medicine; Visit Provider Family Medicine
DX: I95.1 Orthostatic hypotension (principal); R53.83 Other fatigue
CPT/HCPCS: 80053; 82533; 85027

== ENCOUNTER 2022-07-24 11:06 | Emergency (ER) | payer MEDICARE, SELFPAY ==
--- NOTE | ~2022-07-24 | XR_ITS ---
XR chest 2V DATE: 07/24/2022 12:16 INDICATION: Weakness TECHNIQUE: PA and lateral views COMPARISON: 01/30/2022 AP and lateral chest FINDINGS: There is extensive hardware of the cervical and thoracic spine including cervical and thora cic spinal rods and pedicle screws, anterior lower cervical spinal surgical fusion, in addition to an upper thoracic spine spacer device. Status post resection of the proximal bilateral fourth ribs. Left transvenous pacemaker device with leads overlying right atrium and right ventricle. Normal heart size. No hilar or mediastinal enlargement is evident. There is no pulmonary infiltrate or consolidation, pleural effusion or pulmonary vascular congestion or pneumothorax. IMPRESSION: No active cardiopulmonary disease Extensive postoperative changes of the cervical and thoracic spine Reviewed, dictated and finalized at location B.
[2022-07-24 11:23] VITALS: BP 99/74; PULSE 97; RESP 16; TEMP 36.4; O2SAT 100
--- NOTE | 2022-07-24 11:26 | ECG_ITS ---
Measurements Intervals [place] Rate: 90 P: 63 MT: 169 QRS: 32 QRSD: 89 T: 46 QT: 346 QTc: 425 Interpretive Statements SINUS RHYTHM NONSPECIFIC T-WAVE ABNORMALITY BORDERLINE ECG COMPARED TO ECG 01/30/2022 08:18:28 NO SIGNIFICANT CHANGE Electronically Signed On 07-24-2022 15:37:24 CDT by Timmy Pierce M.D.
[2022-07-24 11:50] LABS: Basophils Absolute Auto 0.1 K/mm3 (0.0-0.1); Basophils Percent Auto 0.9 % (0.2-1.2); Eosinophils Absolute Auto 0.1 K/mm3 (0-0.3); Eosinophils Percent Auto 1.3 % (0-4.4); Hematocrit 39.4 % (42.0-52.0); Hemoglobin 11.9 g/dL (14.0-18.0); Immature Granulocyte Absolute 0.02 K/mm3 (0.00-0.031); Immature Granulocyte Percent A 0.3 % (0-0.5); Lymphocytes Absolute Auto 0.88 K/mm3 (0.9-3.2); Lymphocytes Percent Auto 12.6 % (18.3-44.2); Mean Corpuscular HGB Conc 30.2 g/dl (32-36); Mean Corpuscular Hemoglobin 27.7 pg (26-34); Mean Corpuscular Volume 91.8 fl (80-100); Mean Platelet Volume 10.6 fl (7.4-10.4); Monocytes Absolute Auto 0.6 K/mm3 (0.1-0.6); Monocytes Percent Auto 7.9 % (2.6-8.5); Neutrophils Absolute Auto 5.4 K/mm3 (1.3-6.7); Platelet Count Result 204 k/mm3 (150-375); Red Blood Count 4.29 M/mm3 (4.6-6.20); Red Cell Distribution Width 15.8 % (11.5-14.5)
[2022-07-24 11:59] LABS: Alanine Aminotransferase 15 U/L (6-50); Albumin Level 3.6 g/dL (3.5-5.1); Alkaline Phosphatase 116 U/L (38-126); Anion Gap 5 mmol/L (8-16); Aspartate Amino Transferase 20 U/L (17-59); Bilirubin,Total 0.4 mg/dL (0.2-1.3); Blood Urea Nitrogen 8 mg/dL (9-20); Calcium 8.6 mg/dL (8.4-10.2); Carbon Dioxide 31 mmol/L (22-30); Chloride 102 mmol/L (98-107); Estimated CRCL calculation 73 ml/min; Estimated Glomerular Filt Rate > 60; Glucose 100 mg/dL (65-110); Potassium 3.1 mmol/L (3.4-5.0); Sodium 138 mmol/L (137-145)
[2022-07-24 13:26] VITALS: BP 124/81; PULSE 83
[2022-07-24 13:26] LABS: Appearance Urine Clear (Clear); Bacteria Urine None Seen /hpf; Bilirubin Urine Negative (Negative); Blood Urine 1+ (Negative); Color Urine Dark Yellow (Yellow); Glucose Urine UA Negative (Negative); Ketones Urine Negative (Negative); Leukocyte Esterase Ur 1+ LEU/UL (Negative); Nitrate Urine Negative (Negative); Non Pathogenic Casts 0-2; Protein Urine 1+ mg/dL (Negative); Specific Grav Ur 1.025 (1.001-1.035); Squamous Epithelial Cell Urine Few /hpf (Few)
[2022-07-24] MEDS: POTASSIUM CHLORIDE 20 MEQ PACKET (FOR LIQUID) 40 MEQ PO (13:26)
[2022-07-24 13:28] VITALS: BP 134/84; PULSE 82
[2022-07-24 13:28] LABS: Add Urine Microscopic? YES
[2022-07-24 13:32] VITALS: BP 97/73; PULSE 83
--- NOTE | 2022-07-24 14:11 | ED.RECABL ---
HPI - Recheck/Abnormal Lab/Rx General Chief Complaint: Recheck/Abnormal Lab/Rx Stated Complaint: low BP, falls Time Seen by Provider: 07/24/22 12:59 History of Present Illness HPI narrative: Patient has history of orthostatic hypotension, he was at his doctor's office and his doctor sent him here for further evaluation. Patient reports no new changes to his symptoms, he tries to get up carefully and he does have a walker at home but he does not always use it, consequently has had a couple of falls without any injury to his head nor serious injury. Related Data Home Medications Medication Instructions Recorded Confirmed clopidogrel 75 mg tablet 75 mg PO DAILY 01/30/22 07/20/22 atorvastatin 40 mg tablet 40 mg PO QHS 07/20/22 07/20/22 Allergies Allergy/AdvReac Type Severity Reaction Status Date / Time bee venom protein (honey bee) Allergy Intermediate Nausea and Verified 07/24/22 13:00 Vomiting iodine Allergy Intermediate FACIAL Verified 07/24/22 13:00 SWELLING,ITCHING NSAIDS (Non-Steroidal AdvReac Ulcers Verified 07/24/22 13:00 Anti-Inflamma Contrast Media Allergy Intermediate FACIAL Uncoded 07/24/22 13:00 SWELLING, ITCHING, AND REDNESS Review of Systems Review of Systems: CONST: No fever. HEENT: No sore throat C/V: No chest pain RESP: No cough GI: No abdominal pain, nausea or vomiting : No dysuria. M/S: No joint pain. SKIN: No rash. NEURO: [No headache or focal numbness or weakness] PSYCH: [No depression] [facility] Past Medical History Medical History Anxiety Arthritis Bronchitis Cataracts, bilateral Coarse tremors Constipation CVA (cerebrovascular accident) DDD (degenerative disc disease) Depression Diverticulitis Eczema Erectile dysfunction Fall (on) (from) other stairs and steps, initial encounter GERD (gastroesophageal reflux disease) H/O non anemic vitamin B12 deficiency H/O prostate cancer 44 radiation treatments Hiatal hernia HLD (hyperlipidemia) Hypertension Left knee pain Lesion of ureter Lumbar stenosis Lumbar vertebral fracture Melena Migraines Neuropathy Normal colonoscopy (~2009) Osteoporosis Pacemaker Peripheral neuropathy Pneumonia Prostate cancer Right groin pain Right wrist fracture Seasonal allergies Sleep apnea Ulcer UTI (urinary tract infection) Vision abnormalities Vitamin D deficiency Surgical History Surgical History H/O right knee surgery H/O spinal fusion C4-C7-T1 History of appendectomy History of fundoplication History of orthopedic surgery cleft hand, bilateral shoulder, left 3rd finger, jaw History of penile implant History of repair of hiatal hernia History of transurethral resection of prostate Hx of cholecystectomy Hx of tonsillectomy Knee joint replacement status S/P TURP (transurethral resection of prostate) Family History Family History Father Family history of coronary artery disease Mother Family history of coronary artery disease Other Cerebrovascular accident Diabetes mellitus Family history of cardiovascular disease Hypertension Social History Social History Social History: The patient lives with his who is the power consumer attorney. He is retired from [employer]. The patient has 1 son. He is a former smoker. He denies any alcohol marijuana or illicit drugs. Code status full code Smoking packs per day: 1 Smoking cigarettes per day: 20.0 Years smoked: 25 Smoking pack-years: 25.00 Smoking status: Former smoker Tobacco type: cigarettes Second hand tobacco smoke exposure: No Smoking end date: 04/24/22 Alcohol intake: former Drinks per week: 1 Alcohol use details: rare Substance use: former Substance use type: former substance user Other substance usage details: S
[2022-07-24 15:01] VITALS: BP 114/83; PULSE 83; RESP 18; O2SAT 97
== END 2022-07-24 14:45 | disposition home or self-care (01) ==
PROVIDERS: Emergency Provider Emergency Medicine; PCP Family Medicine
DX: I95.1 Orthostatic hypotension (principal); Z91.81 History of falling; E78.5 Hyperlipidemia, unspecified; I10 Essential (primary) hypertension; E53.8 Deficiency of other specified B group vitamins; E55.9 Vitamin D deficiency, unspecified; G62.9 Polyneuropathy, unspecified; G47.30 Sleep apnea, unspecified; K21.9 Gastro-esophageal reflux disease without esophagitis; M19.90 Unspecified osteoarthritis, unspecified site; M81.0 Age-related osteoporosis without current pathological fracture; Z95.0 Presence of cardiac pacemaker; Z96.659 Presence of unspecified artificial knee joint; Z85.46 Personal history of malignant neoplasm of prostate; Z86.73 Personal history of transient ischemic attack (TIA), and cerebral infarction without residual deficits; Z92.3 Personal history of irradiation; Z87.440 Personal history of urinary (tract) infections; Z87.891 Personal history of nicotine dependence; Z98.1 Arthrodesis status; Z90.79 Acquired absence of other genital organ(s); Z90.49 Acquired absence of other specified parts of digestive tract; R82.998 Other abnormal findings in urine; R94.31 Abnormal electrocardiogram [ECG] [EKG]
CPT/HCPCS: 36415; 71046; 80053; 81001; 85025; 87086; 93005; 99283; A9270

== ENCOUNTER 2022-08-14 12:26 | Outpatient (CLI) | payer MEDICARE, SELFPAY ==
--- NOTE | ~2022-08-14 | MM_ITS ---
EXAMINATION: MM diagnostic rasheed LT w corinne HISTORY: Unspecified lump of the left breast TECHNIQUE: Mediolateral oblique 3-D tomosynthesis images of the breasts were performed and synthetic 2-D images were generated. CAD analysis was submitted and interpreted. COMPARISON: 05/18/2011 BREAST PARENCHYMAL COMPOSITION: The breasts are almost entirely fatty. FINDINGS: No suspicious mass, calcification, or architectural distortion are identified in either tee ast to suggest malignancy. Mild bilateral gynecomastia is noted. IMPRESSION: 1. Mild bilateral gynecomastia. BI-RADS Category 2: Benign finding(s). Reviewed, dictated and finalized at location A.
== END 2022-08-14 12:27 | disposition home or self-care (01) ==
LOC: ANHIMG 12:28
PROVIDERS: PCP Family Medicine; Visit Provider Physician Assistant
DX: N63.0 Unspecified lump in unspecified breast (principal); N62 Hypertrophy of breast
CPT/HCPCS: 77061; 77065; G0279

== ENCOUNTER 2022-09-09 07:21 | Outpatient (CLI) | payer MEDICARE, SELFPAY ==
--- NOTE | ~2022-09-09 | CT_ITS ---
CT of the Abdomen and Pelvis: Indication: Hematuria Technique: 2.5 mm axial scans were obtained through the abdomen and pelvis prior to and following in travenous administration of 130 cc of Omnipaque 350. Dose reduction technique was used on this scan b y utilizing automated exposure control and iterative reconstruction technique. The dose-length produc t (DLP) was 668.94 mGy-cm. Findings: Scans through the lung bases demonstrates small pericardial effusion. The liver, spleen, pancreas, and adrenal glands are within normal limits. Small bilateral renal cysts noted. Cholecystectomy clips noted. There are atherosclerotic calcifications of the aorta. No lymph adenopathy. No bowel obstruction or bowel wall thickening. There is no evidence to suggest acute appendicitis. Images through the pelvis were performed. Urinary bladder unremarkable. No pelvic mass evident. Penil e prosthesis with reservoir present. Surgical clips at the bladder base/prostate region are unchanged . No ascites. Impression: No definite etiology for hematuria identified. Penile prosthesis and surgical clips at the bladder ba se are stable from prior exam. Small pericardial effusion. Reviewed, dictated and finalized at location . Impression: No definite etiology for hematuria identified. Penile prosthesis and surgical c lips at the bladder base are stable from prior exam. Small pericardial effusion.
--- NOTE | ~2022-09-09 | XR_ITS ---
XR abdomen/kub 1V 09/09/2022 07:41 Indication: Gross hematuria Procedure: KUB Comparison: 12/15/2018 Findings: Bowel gas pattern is nonobstructive. There are cholecystectomy clips. Moderate lumbar spond ylosis with dextroscoliosis. There is a balloon overlying the pelvis, consistent with penile prosthet ic device. There are pelvic phleboliths. No definite renal stones. Impression: 1: No acute abdominal abnormality. Reviewed, dictated and finalized at location A. Impression: 1: No acute abdominal abnormality.
[2022-09-09 07:54] LABS: Estimated Glomerular Filt Rate > 60
== END 2022-09-09 07:22 | disposition home or self-care (01) ==
PROVIDERS: PCP Family Medicine; Visit Provider Nurse Practitioner Adult Health
DX: I31.39 Other pericardial effusion (noninflammatory) (principal)
CPT/HCPCS: 74018; 74178; Q9967

== ENCOUNTER 2022-09-22 00:47 | Day surgery (SDC) | payer MEDICARE, SELFPAY ==
[2022-09-21 15:30] VITALS: BMI 20.3
[2022-09-22] VITALS (10 sets, daily range): BP systolic 116–131; BP diastolic 68–84; PULSE 70–78; RESP 14–16; TEMP 36.4; O2SAT 96–100; BMI 21.0
[2022-09-22 07:35] LABS: Basophils Percent Auto 0.1 % (0.2-1.2); Hematocrit 39.7 % (42.0-52.0); Hemoglobin 12.2 g/dL (14.0-18.0); Immature Granulocyte Absolute 0.07 K/mm3 (0.00-0.031); Immature Granulocyte Percent A 0.4 % (0-0.5); Lymphocytes Absolute Auto 0.51 K/mm3 (0.9-3.2); Lymphocytes Percent Auto 3.1 % (18.3-44.2); Mean Corpuscular HGB Conc 30.7 g/dl (32-36); Mean Corpuscular Hemoglobin 26.7 pg (26-34); Mean Corpuscular Volume 86.9 fl (80-100); Mean Platelet Volume 12.1 fl (7.4-10.4); Monocytes Absolute Auto 0.1 K/mm3 (0.1-0.6); Monocytes Percent Auto 0.8 % (2.6-8.5); Neutrophils Absolute Auto 15.8 K/mm3 (1.3-6.7); Neutrophils Percent Auto 95.6 % (45.5-73.1); Platelet Count Result 234 k/mm3 (150-375); Red Blood Count 4.57 M/mm3 (4.6-6.20); Red Cell Distribution Width 15.9 % (11.5-14.5); White Blood Count 16.6 K/mm3 (4.5-10.0)
[2022-09-22 07:47] LABS: Prothrombin Time 13.1 Seconds (11.1-14.7)
--- NOTE | 2022-09-22 08:17 | P.HPUP_ITS ---
History and Physical Update Update Date/Time: 09/22/22 08:17 History and Physical has been reviewed, including an updated exam of the patient. There are NO changes in the patient's condition. Mr Oden is a 67 y.o. Male with history of pacemaker, hypertension, hyperlipidemia and pre diabetes. He has a history of low blood pressure and dizziness and syncope thought related to blood pressure medicines and orthostasis. In 2016 he had syncope with a concussion and was found to have s inus pauses. He had a [employer] pacemaker implanted at that time. Of note he had back surgery with a bleeding ulcer in May 2022. Any case he has had some nonsustained ventricular tachycardia noted on pacer checks incidentally, but in August a pacemaker check showed an episode lasting for 27 beats, rate 232. He was sitting down and very symptomatic with presyncope when this occurred. His limited activity due to his back surgery. Sometimes he gets jaw discomfort and moderate chest pressure lasting so with this goes away and Usually occurs at rest. cardiac catheterization in 2016 showed no significant CAD. A Lexiscan in December 2021 showed a small reversible inferior apical defect, EF 51%. He is here for a cardiac cath to evaluate for an ischemic cause of his VT. Risks, benefits, and alternatives have been discussed and questions answered. Patient agrees to proceed with procedure.
[2022-09-22 08:27] LABS: Anion Gap 6 mmol/L (8-16); Blood Urea Nitrogen 17 mg/dL (9-20); Calcium 8.9 mg/dL (8.4-10.2); Carbon Dioxide 27 mmol/L (22-30); Chloride 104 mmol/L (98-107); Estimated CRCL calculation 76 ml/min; Estimated Glomerular Filt Rate > 60; Glucose 139 mg/dL (65-110); Potassium 4.3 mmol/L (3.4-5.0); Sodium 137 mmol/L (137-145)
--- NOTE | 2022-09-22 08:28 | WPDMODSED ---
Moderate Sedation Note-Pt Data Patient Data Diagnosis: Chest and jaw discomfort, nonsustained ventricular tachycardia, abnormal stress test Present Complaint: as above Procedure to be performed/Plan: left heart catheterization, possible PCI Allergies Allergy/AdvReac Type Severity Reaction Status Date / Time bee venom protein (honey bee) Allergy Intermediate Nausea and Verified 09/22/22 07:15 Vomiting iodine Allergy Intermediate FACIAL Verified 09/22/22 07:15 SWELLING,ITCHING NSAIDS (Non-Steroidal AdvReac Ulcers Verified 09/22/22 07:15 Anti-Inflamma Contrast Media Allergy Intermediate FACIAL Uncoded 09/21/22 15:34 SWELLING, ITCHING, AND REDNESS Home Medications Medication Instructions Recorded Confirmed Type gabapentin 300 mg capsule 300 mg BYMOUTH TID #90 caps 06/05/22 09/21/22 Rx (Neurontin) risperidone 1 mg tablet (Risperdal) 1 mg PO QHS #30 tabs 07/12/22 09/21/22 Rx venlafaxine 150 mg 150 mg PO HS #90 caps 07/19/22 08/18/22 Rx capsule,extended release 24 hr atorvastatin 40 mg tablet 40 mg PO QHS 07/20/22 09/21/22 History buspirone 15 mg tablet 15 mg PO DAILY #180 tabs 07/20/22 09/21/22 Rx clopidogrel 75 mg tablet (Plavix) 75 mg PO DAILY 08/18/22 09/21/22 History pantoprazole 40 mg tablet,delayed 40 mg PO DAILY #60 tabs 08/18/22 09/21/22 Rx release morphine 15 mg immediate release 15 mg PO BID PRN Pain 09/21/22 09/21/22 History tablet trazodone 100 mg tablet 100 mg PO HS 09/21/22 09/21/22 History Current Medications: Active Medications Sodium Chloride (Normal Saline Iv) 500 mls @ 100 mls/hr IV CONT .Q5H MARANDA Sedation/Anesthesia: No previous sedation/anesthesia problems (including family history). [facility] Past Medical History Medical History Anxiety Arthritis Bronchitis Cataracts, bilateral Coarse tremors Constipation CVA (cerebrovascular accident) DDD (degenerative disc disease) Depression Diverticulitis Eczema Erectile dysfunction Fall (on) (from) other stairs and steps, initial encounter GERD (gastroesophageal reflux disease) H/O non anemic vitamin B12 deficiency H/O prostate cancer 44 radiation treatments Hiatal hernia HLD (hyperlipidemia) Hypertension Left knee pain Lesion of ureter Lumbar stenosis Lumbar vertebral fracture Melena Migraines Neuropathy Normal colonoscopy (~2009) Osteoporosis Pacemaker Peripheral neuropathy Pneumonia Prostate cancer Right groin pain Right wrist fracture Seasonal allergies Sleep apnea Ulcer UTI (urinary tract infection) Vision abnormalities Vitamin D deficiency Surgical History Surgical History H/O right knee surgery H/O spinal fusion C4-C7-T1 History of appendectomy History of fundoplication History of orthopedic surgery cleft hand, bilateral shoulder, left 3rd finger, jaw History of penile implant History of repair of hiatal hernia History of transurethral resection of prostate Hx of cholecystectomy Hx of tonsillectomy Knee joint replacement status S/P TURP (transurethral resection of prostate) Family History Family History Father Family history of coronary artery disease Mother Family history of coronary artery disease Other Cerebrovascular accident Diabetes mellitus Family history of cardiovascular disease Hypertension Social History Social History Social History: The patient lives with his who is the power sports attorney. He is retired from [employer]. The patient has 1 son. He is a former smoker. He denies any alcohol marijuana or illicit drugs. Code status full code Smoking packs per day: 1 Smoking cigarettes per day: 20.0 Years smoked: 25 Smoking pack-years: 25.00 Smoking status: Former smoker Tobacco type: cigarettes Seco
--- NOTE | 2022-09-22 09:16 | PM.OP ---
Procedure Note - Brief Procedure Note - Brief Date of procedure: 09/22/22 abn stress test, VT Procedure performed: left heart catheterization, selective coronary angiography, left ventriculography, angiography of right common femoral Surgeon: Alejandrina Valdez MD Findings: minimal luminal irregularities Normal left ventricular function Description of procedure: uneventful left heart catheterization, Angio-Seal applied Complications: No immediate complications Condition: Stable Disposition: Observation
--- NOTE | 2022-09-22 09:17 | WPDCARDPROC ---
Cardiac Cath Procedure Note Date of procedure:: 09/22/22 Performing physician:: Alejandrina Valdez MD Indication:: symptomatic nonsustained ventricular tachycardia, abnormal stress, test, atypical chest and jawdiscomfort Brief clinical history:: Mr Oden is a 67 y.o. Male with history of pacemaker, hypertension, hyperlipidemia and pre diabetes.? He has a history of low blood pressure and dizziness and syncope thought related to blood pressure medicines and orthostasis.? In 2016 he had syncope with a concussion and was found to have sinus pauses.? He had a [employer] pacemaker implanted at that time.? Of note he had back surgery with a bleeding ulcer in May 2022.? Any case he has had some nonsustained ventricular tachycardia noted on pacer checks incidentally, but in August a pacemaker check showed an episode lasting for 27 beats, rate 232.? He was sitting down and very symptomatic with presyncope when this occurred.? His limited activity due to his back surgery.? Sometimes he gets jaw discomfort and moderate chest pressure lasting so with this goes away and ? Usually occurs at rest. cardiac catheterization in 2016 showed no significant CAD.? A Lexiscan in December 2021 showed a small reversible inferior apical defect, EF 51%.? He is here for a cardiac cath to evaluate for an ischemic cause of his VT.? The patient has history of IV contrast allergy has been prophylaxed. He took his prednisone and Benadryl this morning. Procedure Procedure performed:: Procedure: 1. Conscious sedation 2. Left heart catheterization 3. Selective Coronary angiography 4. Left ventriculography Sedation/Medication given:: Conscious sedation: The patient has no known prior history of adverse affects of conscious sedation. Oropharynx was clear. The patient is deemed a good candidate for conscious sedation. Conscious sedation began at: 8:49 a.m. Conscious sedation ended at: 9:08 a.m. Total conscious sedation time: 17 minutes Medications: Benadryl 25 mg, Solu-Medrol 40 mg, fentanyl 25 mcg IV push The patient had continuous hemodynamic monitoring, and was also continuously monitored by: Deann Alcala RN The patient tolerated conscious sedation well. Access site:: Site: Right femoral artery Estimated blood loss:: 10 cc Procedure note:: Catheters: 5 Egyptian arterial sheath, 5 Egyptian 4 cm right and left Soniya catheters, 5 Egyptian pigtail catheter Detailed procedure: After informed consent the patient brought to the labor training manager and the right femoral area was prepped and draped in the usual fashion. After conscious sedation and local anesthesia the right femoral artery was punctured and cannulated with the arterial sheath. Selective Coronary angiography was performed with the coronary catheters in multiple projections. These were withdrawn. The pigtail catheter was advanced into the central circulation and left ventricle for pressure measurements and left ventriculography which was performed in the CAPPS projection. This was withdrawn. Angiography the right common femoral artery was performed which showed the sheath in suitable position for a vascular closure device. The right common femoral artery was mildly tortuous.Later the arterial sheath was removed and hemostasis was obtained using an Angio-Seal vascular closure device. The patient tolerated the procedure well with no complications. Estimated blood loss was negligible. Findings:: Pressures: Aortic pressure was 120/65 and left ventricular pressure was 120/25 mmHg. Left coronary artery: The left main, Left anterior descending and circumflex widely patent. There were mild luminal irregularities and plaquing noted in the proximal OM 1 which is a large vessel, stenosis estimated to be 30%. Right coronary artery : the dominant right coronary artery was free of disease. Left ventriculography : left ventriculography showed very good left ventricular function, ejection fraction
== END 2022-09-22 12:25 | disposition home or self-care (01) ==
PROVIDERS: PCP Family Medicine; Visit Provider Internal Medicine Cardiovascular Disease
PROC: 4A023N7 Measurement of Cardiac Sampling and Pressure, Left Heart, Percutaneous Approach (ICD-10-PCS; CPT 93452; principal; 2022-09-22 08:30)
DX: I25.10 Atherosclerotic heart disease of native coronary artery without angina pectoris (principal); I47.29 Other ventricular tachycardia; R94.39 Abnormal result of other cardiovascular function study; I10 Essential (primary) hypertension; F41.9 Anxiety disorder, unspecified; F32.A Depression, unspecified; K21.9 Gastro-esophageal reflux disease without esophagitis; E78.5 Hyperlipidemia, unspecified; M81.0 Age-related osteoporosis without current pathological fracture; E55.9 Vitamin D deficiency, unspecified; G62.9 Polyneuropathy, unspecified; G47.30 Sleep apnea, unspecified; Z85.46 Personal history of malignant neoplasm of prostate; Z92.3 Personal history of irradiation; Z98.1 Arthrodesis status; Z87.891 Personal history of nicotine dependence; Z79.02 Long term (current) use of antithrombotics/antiplatelets; Z86.73 Personal history of transient ischemic attack (TIA), and cerebral infarction without residual deficits
CPT/HCPCS: 36415; 80048; 85025; 85610; 93458; C1760; C1887; C1894; G0269; J1200; J1644; J2250; J2930; J3010; J7040

== ENCOUNTER 2022-12-16 10:13 | Outpatient (CLI) | payer MEDICARE, SELFPAY ==
[2022-12-16 11:08] LABS: Prothrombin Time 13.1 Seconds (11.1-14.7)
[2022-12-16 11:10] LABS: Partial Thromboplastin Time 27.9 SECONDS (22.3-36.8)
== END 2022-12-16 10:14 | disposition home or self-care (01) ==
LOC: ANHSURGERY 10:16
PROVIDERS: PCP Family Medicine; Visit Provider Urology
DX: Z01.818 Encounter for other preprocedural examination (principal); R39.15 Urgency of urination
CPT/HCPCS: 36415; 85610; 85730; 87086

== ENCOUNTER 2022-12-24 13:56 | Inpatient (IN) | payer MEDICARE, SELFPAY ==
[2022-12-10 10:58] VITALS: BMI 21.0
--- NOTE | 2022-12-10 11:07 | PC.NURSE ---
PRE-OP INSTRUCTIONS, PLEASE READ CAREFULLY Report to the Outpatient Waiting Room, entrance under the green pavilion located off [facility], at time _1000_ on date _12/22/22_. Planned Procedure Time: _1200_. PACK A SMALL OVERNIGHT BAG AND LEAVE IN THE CAR Time changes happen often and if your time is changed the preop area will call you the afternoon before. - You and your visitor will be asked to self-screen and do not enter if you have any COVID symptoms. - A mask is optional within the hospital at this time. -VISITING HOURS 8AM-8PM Patients may have clear liquids (water, carbonated beverages, clear teas, apple juice) until 3 hours prior to surgery (0900 AM) with a maximum of 20 ounces. - No food from midnight until time of surgery Take the following medications with a SIP of water the morning of surgery: _BUSPIRONE, GABAPENTIN_ DO NOT STOP ANY OF YOUR OTHER PRESCRIPTION MEDICATIONS PRIOR TO SURGERY ?EXCEPT THE FOLLOWING Medications to discontinue per VAN -_PLAVIX 7 DAYS PRIOR TO SURGERY (PER PT), Date to take last dose 12/14/22_ Please no make-up, nail bruneian, hairspray, perfume, deodorant, or body powder the day of surgery. No jewelry (including any body piercings) or valuables the day of surgery, leave them at home. Please take a shower or bath the night before, or the morning of, surgery with an antibacterial soap. Wear comfortable, loose fitting clothing. - Jewelry must be removed prior to entering the operating room. Rings and piercings that are not removed may be cut off. - The hospital will not accept responsibility for valuables. - Please leave all valuables, including medications, at home the day of surgery. If you are going home after surgery, a licensed route driver coin machines must drive you home. - NO public transportation without another adult if you receive anesthesia. - We recommend that an adult stay with you for 24 hours following discharge. - We also recommend that you do not drive, make important decision, drink alcoholic beverages, or take any drugs that were not prescribed by your health care provider for at least 24 hours after your discharge time. Follow any additional instructions given to you from your surgeon. If you or anyone in your household have experienced Covid symptoms in the past week, please notify your surgeon or the nurse liaison at the phone number below for possible testing. Telephone instructions given to _PATIENT_and asked if any additional questions and then verbalized understanding. Patient advised to call surgeon office or pre surgery nurse liaison [phone] if any additional questions.
[2022-12-22] VITALS (22 sets, daily range): BP systolic 135–175; BP diastolic 68–96; PULSE 60–72; RESP 12–20; TEMP 35.8–37; O2SAT 97–100
[2022-12-22] MEDS: LACTATED RINGERS 1,000 ML 30 ML IV CONT (10:26)
--- NOTE | 2022-12-22 11:23 | WPDANESEPPF ---
Anes - Initial Pre Proc Eval Procedure: Operation Date: 12/22/22 12:00 Proposed Procedures p Cystoscopy, Removal of Displaced Urolift Amol, - Ramo Hagan MD s Possible Trans Urethral Resection Prostate - Ramo Hagan MD Date/Time: 12/22/22 11:23 Surgeon: Ramo Hagan MD Pre Op Diagnosis: prostate ca, displace urolift amol, urgency Patient Data Age: 67 Gender: M Height: 1.83 m Weight: 70.2 kg Last Vital Signs Temp 37.0 C 12/22/22 10:10 Pulse 63 12/22/22 10:10 Resp 20 12/22/22 10:10 BP 164/89 H 12/22/22 10:10 Pulse Ox 100 12/22/22 10:10 O2 Del Method Room Air 12/22/22 10:10 Allergies Allergy/AdvReac Type Severity Reaction Status Date / Time bee venom protein (honey bee) Allergy Intermediate Nausea and Verified 12/22/22 10:05 Vomiting iodine Allergy Intermediate FACIAL Verified 12/22/22 10:05 SWELLING,ITCHING NSAIDS (Non-Steroidal AdvReac Ulcers Verified 12/22/22 10:05 Anti-Inflamma Contrast Media Allergy Intermediate FACIAL Uncoded 12/22/22 10:05 SWELLING, ITCHING, AND REDNESS Home Medications Medication Instructions Recorded Confirmed Type gabapentin 300 mg capsule 300 mg BYMOUTH TID #90 caps 06/05/22 12/10/22 Rx (Neurontin) risperidone 1 mg tablet (Risperdal) 1 mg PO QHS #30 tabs 07/12/22 12/10/22 Rx venlafaxine 150 mg 150 mg PO HS #90 caps 07/19/22 12/10/22 Rx capsule,extended release 24 hr atorvastatin 40 mg tablet 40 mg PO QHS 07/20/22 12/10/22 History buspirone 15 mg tablet 15 mg PO DAILY #180 tabs 07/20/22 12/10/22 Rx clopidogrel 75 mg tablet (Plavix) 75 mg PO DAILY 08/18/22 12/10/22 History pantoprazole 40 mg tablet,delayed 40 mg PO DAILY #60 tabs 08/18/22 12/10/22 Rx release trazodone 100 mg tablet 100 mg PO HS 09/21/22 12/10/22 History metoprolol succinate 25 mg 37.5 mg PO DAILY #45 tabs 09/22/22 12/10/22 Rx tablet,extended release 24 hr fludrocortisone 0.1 mg tablet 0.05 mg PO DAILY #30 tabs 12/10/22 12/22/22 Rx Patient hx anesthesia problems: none Family hx anesthesia problems: none Results Review: All pre-operative results and documents have been reviewed as part of the pre-operative evaluation. FORMERLY [facility] Past Medical History Medical History Anxiety Arthritis Bronchitis Cataracts, bilateral Coarse tremors Constipation CVA (cerebrovascular accident) DDD (degenerative disc disease) Depression Diverticulitis Eczema Erectile dysfunction Fall (on) (from) other stairs and steps, initial encounter GERD (gastroesophageal reflux disease) H/O non anemic vitamin B12 deficiency H/O prostate cancer 44 radiation treatments Hiatal hernia HLD (hyperlipidemia) Hypertension Left knee pain Lesion of ureter Lumbar stenosis Lumbar vertebral fracture Melena Migraines Neuropathy Nonsustained ventricular tachycardia Normal colonoscopy (~2009) Osteoporosis Pacemaker Peripheral neuropathy Pneumonia Prostate cancer Right groin pain Right wrist fracture Seasonal allergies Sleep apnea Ulcer UTI (urinary tract infection) Vision abnormalities Vitamin D deficiency Surgical History Surgical History H/O right knee surgery H/O spinal fusion C4-C7-T1 History of appendectomy History of fundoplication History of orthopedic surgery cleft hand, bilateral shoulder, left 3rd finger, jaw History of penile implant History of repair of hiatal hernia History of transurethral resection of prostate Hx of cholecystectomy Hx of tonsillectomy Knee joint replacement status S/P TURP (transurethral resection of prostate) Family History Family History Father Family history of coronary artery disease Mother Family history of coronary artery disease Other Cerebrovascular accident Diabetes mellitus Family history of cardiovascular disease
--- NOTE | 2022-12-22 11:33 | SUR.PREOP ---
1100-pt aware surgeon delays self 30-45 .
--- NOTE | 2022-12-22 12:04 | WPDHPUPDATE1 ---
History and Physical Update Update Date/Time: 12/22/22 12:04 History and Physical has been reviewed, including an updated exam of the patient. There are NO changes in the patient's condition. Risks, benefits, and alternatives have been discussed and questions answered. Patient agrees to proceed with procedure. Proceed with cysto, removal of displaced urolift amol, possible transurethral resection of prostate
[2022-12-22] MEDS: ceFAZolin 2 GM/D5W 50 ML 2 GM/50 ML BAG IVPB (12:35)
[2022-12-22] MEDS: LIDOCAINE HCL 2% GEL UROJET 10 ML PKG MUCOUS MEM (13:00)
--- NOTE | 2022-12-22 13:16 | W.PM.PROC2 ---
Procedure Note - Detailed Date of Procedure 12/22/22 Pre-op Diagnosis prostate ca, displace urolift amol, urgency Post-op Diagnosis Same Procedure Performed Cystoscopy, removal of displaced UroLift amol with cold cup, fulguration of prostate, Surgeon Ramo Hagan MD Anesthesia General Description of Procedure Patient is taken to the operative suite correctly identified. Once anesthesia was obtained was placed in dorsal lithotomy position and prepped draped usual sterile fashion. Twenty-two Chinese scope inserted into the meatus. His urethra was somewhat tight. It also is somewhat fixed at the bladder neck area from his prior radiation. The bladder itself has no tumors. Patient is noted to have 4 visible amol at the bladder neck. Using a cold cup these were retrieved. Hemostasis was then achieved using electrocautery. He does not appear obstructive in nature. 2% viscous lidocaine was then inserted into the urethra. Eighteen [address] was [address] and connected to continuous bladder irrigation. If that remains clear in recovery room he will be discharged home with a Jung catheter and have that removed on Wednesday. This completes dictation on this patient. Please send a copy of this op note to my office Estimated Blood Loss 10 Drains Yes Packing No Pathology Yes Complications No immediate complications Condition Stable Disposition PACU
[2022-12-22] MEDS: fentaNYL CITRATE INJ (*CRX) 100 MCG/2 ML VIAL 25 MCG IV PUSH ×6 (13:37→16:02)
--- NOTE | 2022-12-22 15:43 | SUR.PHASEI ---
Notified Dr. De León of patient's elevated SBP 170's with heart rate of 60. No new orders to treat BP at this time.
--- NOTE | 2022-12-22 17:07 | ADMGEN ---
This patient, George Concepcion, was admitted to 2 Medical Room 241-. Patient/family oriented to hospital policies and general routines including ID bracelet, bed and alarms, visiting hours, pain management, procedures, bathroom and other care routines, personal items, smoking policy, room service/diet, and visiting hours. Information on how to activate the Rapid Response Team has been discussed. Patient/Family are encouraged to report perceived risks to care and to ask questions if they do not understand what they are told or what they should do.
[2022-12-22] MEDS: HYOSCYAMINE SULFATE 0.125 MG TABLET SUBLINGUAL (18:11)
[2022-12-22] MEDS: GABAPENTIN 300 MG CAPSULE BY MOUTH (18:11)
[2022-12-22] MEDS: VENLAFAXINE HCL XR 75 MG CAP.ER.24H 150 MG PO (20:56)
[2022-12-22] MEDS: METOPROLOL SUCCINATE EXT REL 12.5 MG TABCR 37.5 MG PO (20:57)
[2022-12-22] MEDS: traZODone HCL 50 MG TABLET 100 MG PO (20:57)
[2022-12-22] MEDS: DOCUSATE SODIUM 100 MG CAPSULE PO (20:57)
[2022-12-22] MEDS: risperiDONE 1 MG TABLET PO (20:57)
[2022-12-22] MEDS: ATORVASTATIN 40 MG TABLET PO (20:57)
[2022-12-22] MEDS: ceFAZolin 1 GM/NS 50 ML 1 GM/50 ML BAG IVPB (21:00)
[2022-12-23] VITALS (8 sets, daily range): BP systolic 98–133; BP diastolic 61–81; PULSE 59–78; RESP 16–20; TEMP 36.3–36.9; O2SAT 9–100
[2022-12-23] MEDS: HYDROcodone/acetaminophen (*CRX) 5-325 MG TABLET 1 TAB PO ×2 (00:24→08:51)
[2022-12-23] MEDS: HYOSCYAMINE SULFATE 0.125 MG TABLET SUBLINGUAL ×3 (00:24→16:51)
[2022-12-23] MEDS: ceFAZolin 1 GM/NS 50 ML 1 GM/50 ML BAG IVPB (04:40)
[2022-12-23 06:22] LABS: Hematocrit 36.5 % (42.0-52.0); Hemoglobin 11.8 g/dL (14.0-18.0)
[2022-12-23 06:41] LABS: Anion Gap 3 mmol/L (8-16); Blood Urea Nitrogen 11 mg/dL (9-20); Calcium 8.6 mg/dL (8.4-10.2); Carbon Dioxide 34 mmol/L (22-30); Chloride 97 mmol/L (98-107); Estimated CRCL calculation 75 ml/min; Estimated Glomerular Filt Rate > 60; Glucose 90 mg/dL (65-110); Potassium 3.3 mmol/L (3.4-5.0); Sodium 134 mmol/L (137-145)
[2022-12-23] MEDS: DOCUSATE SODIUM 100 MG CAPSULE PO ×2 (08:51→20:56)
[2022-12-23] MEDS: GABAPENTIN 300 MG CAPSULE BY MOUTH ×3 (08:51→16:51)
[2022-12-23] MEDS: PANTOPRAZOLE 40 MG TABLET PO (08:51)
[2022-12-23] MEDS: busPIRone HCL 5 MG TABLET 15 MG PO (08:51)
--- NOTE | 2022-12-23 10:33 | WPDANESPN ---
Anes - Prog Note Post-Op Date/Time: 12/23/22 10:33 Cardiovascular status: normal Respiratory status: normal Airway patency: baseline Mental status: baseline Post-Op hydration status: normal Vital Signs: Last Vital Signs Temp 97.3 F L 12/23/22 06:06 Pulse 62 12/23/22 06:06 Resp 20 12/23/22 06:06 BP 133/81 12/23/22 06:06 Pulse Ox 98 12/23/22 06:06 O2 Del Method Room Air 12/22/22 20:00 O2 Flow Rate 8 12/22/22 13:40 Pain Score (VAS): 0 I/O: Intake & Output 12/22/22 12/23/22 12/23/22 23:59 07:59 15:59 Intake Total 690 700 Output Total 4750 2300 Balance -4060 -1600 Laboratory Tests 12/23/22 05:29 12/23/22 05:29 12/23/22 05:29 Hgb 11.8 L Hct 36.5 L Sodium 134 L Potassium 3.3 L Chloride 97 L Carbon Dioxide 34 H Anion Gap 3 L BUN 11 D Creatinine 0.80 Estim Creat Clear Calc 75 Estimated GFR > 60 Glucose 90 Calcium 8.6 Post-procedural complaints: none Patient Feedback: Patient satisfied with anesthetic care.
--- NOTE | 2022-12-23 10:34 | WPDANESPN ---
Anes - Prog Note Post-Op Date/Time: 12/23/22 10:34 Cardiovascular status: normal Respiratory status: normal Airway patency: baseline Mental status: baseline Post-Op hydration status: normal Vital Signs: Last Vital Signs Temp 97.3 F L 12/23/22 06:06 Pulse 62 12/23/22 06:06 Resp 20 12/23/22 06:06 BP 133/81 12/23/22 06:06 Pulse Ox 98 12/23/22 06:06 O2 Del Method Room Air 12/22/22 20:00 O2 Flow Rate 8 12/22/22 13:40 Pain Score (VAS): 0 I/O: Intake & Output 12/22/22 12/23/22 12/23/22 23:59 07:59 15:59 Intake Total 690 700 Output Total 4750 2300 Balance -4060 -1600 Laboratory Tests 12/23/22 05:29 12/23/22 05:29 12/23/22 05:29 Hgb 11.8 L Hct 36.5 L Sodium 134 L Potassium 3.3 L Chloride 97 L Carbon Dioxide 34 H Anion Gap 3 L BUN 11 D Creatinine 0.80 Estim Creat Clear Calc 75 Estimated GFR > 60 Glucose 90 Calcium 8.6 Post-procedural complaints: none Patient Feedback: Patient satisfied with anesthetic care.
--- NOTE | 2022-12-23 13:07 | WPDUROPN2 ---
Progress Note: A&P Assessment and Plan (1) S/P TURP (transurethral resection of prostate): Code(s): Z90.79 - Acquired absence of other genital organ(s) Status: Acute Assessment and Plan: Pt. will stay tonight for CBI to clear urine. Wean CBI to off overnight if urine clear. Will see tomorrow in anticipation of discharge if urine is clear off CBI. Subjective Subjective Date/Time Seen: 12/23/22 13:07 Post Op day: 1 Interval history: S/P Cystoscopy, removal of displaced UroLift amol with cold cup, fulguration of prostate. Patient doing well today, sitting up in the chair. CBI on slow drip, urine is still bloody today. Patient tolerating diet and activity well, he has no pain. Review of Systems Cardiovascular: Cardiovascular: Denies chest pain Respiratory: Respiratory: Reports no additional respiratory complaints Gastrointestinal: Gastrointestinal: Denies abdominal pain, Denies nausea and Denies vomiting Genitourinary: Genitourinary: Reports hematuria, Denies genital pain, Denies flank pain and Denies scrotal swelling Exam Const: General: cooperative and comfortable Cardio: Rate: regular rate GI: GI Palp: Yes Soft to palpation and No Tenderness to palpation present (GI) : General: Yes no CVA tenderness Urinary Catheter: Urinary Catheter: patent and draining and urine red Objective Data Vital Signs Vital Signs: Vital Signs - 24 hr 12/22/22 13:20 12/22/22 13:27 12/22/22 13:40 Temperature 98.1 F Pulse Rate 62 60 60 Respiratory Rate 16 18 16 Blood Pressure 169/80 H 167/88 H 175/85 H Pulse Oximetry 100 100 98 Oxygen Delivery Simple Face Mask Simple Face Mask Simple Face Mask Oxygen Flow Rate 8 8 8 12/22/22 13:50 12/22/22 14:05 12/22/22 14:20 Temperature Pulse Rate 64 64 63 Respiratory Rate 20 18 18 Blood Pressure 150/96 H 173/83 H 171/88 H Pulse Oximetry 98 98 100 Oxygen Delivery Room Air Room Air Room Air Oxygen Flow Rate 12/22/22 14:35 12/22/22 14:50 12/22/22 15:05 Temperature Pulse Rate 62 61 61 Respiratory Rate 16 17 14 Blood Pressure 165/81 H 163/84 H 172/86 H Pulse Oximetry 99 99 100 Oxygen Delivery Room Air Room Air Room Air Oxygen Flow Rate 12/22/22 15:20 12/22/22 15:35 12/22/22 15:50 Temperature Pulse Rate 62 63 60 Respiratory Rate 16 12 12 Blood Pressure 174/83 H 173/86 H 166/86 H Pulse Oximetry 99 100 99 Oxygen Delivery Room Air Room Air Room Air Oxygen Flow Rate 12/22/22 16:05 12/22/22 16:16 12/22/22 16:21 Temperature 96.8 F L Pulse Rate 64 64 61 Respiratory Rate 18 18 16 Blood Pressure 169/88 H 170/87 H 166/79 H Pulse Oximetry 97 99 100 Oxygen Delivery Room Air Room Air Oxygen Flow Rate 12/22/22 16:36 12/22/22 17:06 12/22/22 17:35 Temperature 96.8 F L 97.3 F L Pulse Rate 61 63 Respiratory Rate 16 16 Blood Pressure 157/79 H 152/79 H Pulse Oximetry 100 99 Oxygen Delivery Room Air Oxygen Flow Rate 12/22/22 19:00 12/22/22 20:57 12/22/22 20:00 Temperature 96.5 F L Pulse Rate 72 62 62 Respiratory Rate 18 18 Blood Pressure 148/86 H Pulse Oximetry 99 99 Oxygen Delivery Room Air Oxygen Flow Rate 12/22/22 23:21 12/23/22 01:45 12/23/22 06:06 Temperature 97.4 F L 97.3 F L 97.3 F L Pulse Rate 60 68 62 Respiratory Rate 20 20 20 Blood Pressure 135/68 132/75 133/81 Pulse Oximetry 98 98 98 Oxygen Delivery Oxygen Flow Rate 12/23/22 10:06 Temperature 97.3 F L Pulse Rate 64 Respiratory Rate 16 Blood Pressure 98/61 L Pulse Oximetry 99 Oxygen Delivery Oxygen Flow Rate Intake/Output Intake/Output: Intake & Output 12/20/22 12/21/22 12/22/22 12/23/22 23:59 23:59 23:59 23:59 Intake Total 6740 920 Output Total 69550 2300 Balance -3440 -2885 Meds/Results Medications: Active Medications Generic Name Dose Route Start Last Admin Trade Name Freq PRN Reason Stop Dose Admin Hydrocodone Bitart/Acetaminophen 1 tab 12/22/22 16:21 12/23/22 08:51
[2022-12-23] MEDS: CEPHALEXIN 500 MG CAPSULE PO ×3 (14:07→20:56)
[2022-12-23] MEDS: VENLAFAXINE HCL XR 75 MG CAP.ER.24H 150 MG PO (20:55)
[2022-12-23] MEDS: traZODone HCL 50 MG TABLET 100 MG PO (20:55)
[2022-12-23] MEDS: ATORVASTATIN 40 MG TABLET PO (20:56)
[2022-12-23] MEDS: METOPROLOL SUCCINATE EXT REL 12.5 MG TABCR 37.5 MG PO (20:56)
[2022-12-23] MEDS: risperiDONE 1 MG TABLET PO (20:56)
--- NOTE | ~2022-12-24 | US_ITS ---
EXAMINATION: US renal BI DATE: 12/25/2022 09:36 INDICATION: Gross hematuria TECHNIQUE: Multiple grayscale and Doppler ultrasound images of the kidneys were obtained. COMPARISON: 12/22/2012; CT, 09/09/2022 FINDINGS: The right kidney measures 11.3 x 4.5 x 4.2 cm. The left kidney measures 11.2 x 5.5 x 4.5 cm . There is a 3.5 cm cyst of the left kidney upper pole. The kidneys demonstrate normal parenchymal ec hogenicity. There is no hydronephrosis. The bladder is decompressed by Jung catheter.. IMPRESSION: 1. Unremarkable kidneys without hydronephrosis. No sonographic correlate for hematuria. Reviewed, dictated and finalized at location B. IMPRESSION: 1. Unremarkable kidneys without hydronephrosis. No sonographic correlate for he maturia.
[2022-12-24 01:41] VITALS: BP 120/64; PULSE 67; RESP 20; TEMP 36.2; O2SAT 98
[2022-12-24] MEDS: HYOSCYAMINE SULFATE 0.125 MG TABLET SUBLINGUAL ×3 (01:48→21:50)
[2022-12-24 04:36] VITALS: BP 144/90; PULSE 65; RESP 21; TEMP 36.2; O2SAT 100
[2022-12-24] MEDS: GABAPENTIN 300 MG CAPSULE BY MOUTH ×3 (08:46→17:11)
[2022-12-24] MEDS: busPIRone HCL 5 MG TABLET 15 MG PO (08:46)
[2022-12-24] MEDS: DOCUSATE SODIUM 100 MG CAPSULE PO ×2 (08:46→21:18)
[2022-12-24] MEDS: PANTOPRAZOLE 40 MG TABLET PO (08:46)
[2022-12-24] MEDS: CEPHALEXIN 500 MG CAPSULE PO ×4 (08:46→21:18)
[2022-12-24 11:11] VITALS: BP 100/66; PULSE 74; RESP 18; TEMP 36.2; O2SAT 99
--- NOTE | 2022-12-24 11:59 | PC.NURSE ---
On 12/24/22, the student, [Reinaldo Shaffer], provided care and completed [facility] documentation on this patient. I have reviewed the student's documentation and agree with the findings.
--- NOTE | 2022-12-24 12:11 | WPDUROPN2 ---
Progress Note: A&P Assessment and Plan (1) S/P TURP (transurethral resection of prostate): Code(s): Z90.79 - Acquired absence of other genital organ(s) Status: Acute Assessment and Plan: Pt. urine remains bloody off CBI with activity. CBI weaned to off this morning. Urine was clear prior to this. We will restart CBI and wean to off again this afternoon, if he remains bloody, I will discuss his case with Dr. Hagan to determine if he needs to be NPO after midnight and go back to the OR tomorrow for Cystoscopy with fulgeration. Subjective Subjective Date/Time Seen: 12/24/22 12:11 Post Op day: 2 Interval history: S/P Cystoscopy, removal of displaced UroLift amol with cold cup, fulguration of prostate. Patient doing well today, sitting up in the chair. CBI on slow drip, urine is still bloody today. Patient tolerating diet and activity well, he has no pain. Review of Systems Cardiovascular: Cardiovascular: Denies chest pain Respiratory: Respiratory: Reports no additional respiratory complaints Gastrointestinal: Gastrointestinal: Denies abdominal pain, Denies nausea and Denies vomiting Genitourinary: Genitourinary: Reports hematuria, Denies genital pain, Denies flank pain and Denies scrotal swelling Exam Const: General: cooperative and comfortable Resp: Effort & Inspection: normal respiratory effort Cardio: Rate: regular rate GI: GI Palp: Yes Soft to palpation and No Tenderness to palpation present (GI) : General: Yes no CVA tenderness Urinary Catheter: Urinary Catheter: patent and draining and urine red Extrem: Right lower extremity: no edema Left lower extremity: no edema Objective Data Vital Signs Vital Signs: Vital Signs - 24 hr 12/23/22 15:16 12/23/22 18:06 12/23/22 20:56 Temperature 97.3 F L Pulse Rate 59 L 78 60 Respiratory Rate 16 16 Blood Pressure 118/78 118/76 Pulse Oximetry 9 L 100 Oxygen Delivery 12/23/22 21:50 12/23/22 20:00 12/24/22 01:41 Temperature 98.5 F 97.1 F L Pulse Rate 60 60 67 Respiratory Rate 20 20 20 Blood Pressure 131/66 120/64 Pulse Oximetry 98 98 98 Oxygen Delivery Room Air 12/24/22 04:36 12/24/22 08:40 12/24/22 11:11 Temperature 97.2 F L 97.1 F L Pulse Rate 65 74 Respiratory Rate 21 H 18 Blood Pressure 144/90 H 100/66 Pulse Oximetry 100 99 Oxygen Delivery Room Air Intake/Output Intake/Output: Intake & Output 12/21/22 12/22/22 12/23/22 12/24/22 23:59 23:59 23:59 23:59 Intake Total 6740 2460 220 Output Total 34282 2300 1000 Balance -3360 160 -780 Meds/Results Medications: Active Medications Generic Name Dose Route Start Last Admin Trade Name Freq PRN Reason Stop Dose Admin Hydrocodone Bitart/Acetaminophen 1 tab 12/22/22 16:21 12/23/22 08:51 Hydrocodone/Acetaminophen (*Crx) 5-325 Mg Tablet PO 1 tab Q4H PRN Administration Pain Rated 1-6 Atorvastatin Calcium 40 mg 12/22/22 21:00 12/23/22 20:56 Atorvastatin 40 Mg Tablet PO 40 mg QHS MARANDA Administration Buspirone HCl 15 mg 12/23/22 09:00 12/24/22 08:46 Buspirone Hcl 5 Mg Tablet PO 15 mg DAILY MARANDA Administration Cephalexin HCl 500 mg 12/23/22 13:00 12/24/22 08:46 Cephalexin 500 Mg Capsule PO 500 mg QID MARANDA Administration Docusate Sodium 100 mg 12/22/22 21:00 12/24/22 08:46 Docusate Sodium 100 Mg Capsule PO 100 mg Q12HR MARANDA Administration Gabapentin 300 mg 12/22/22 17:00 12/24/22 08:46 Gabapentin 300 Mg Capsule BY MOUTH 300 mg TID MARANDA Administration Hyoscyamine 0.125 mg 12/22/22 16:21 12/24/22 10:50 Hyoscyamine Sulfate 0.125 Mg Tablet SUBLINGUAL 0.125 mg Q6H PRN Administration Bladder Spasm Metoprolol Succinate 37.5 mg 12/22/22 21:00 12/23/22 20:56 Metoprolol Succinate Ext Rel 12.5 Mg Tabcr PO 37.5 mg HS MARANDA Administration Morphine Sulfate 2 mg 12/22/22 16:21 Morphine Sulfate (*Crx) 2 Mg/Ml Inj IV PUSH Q2H PRN Pain Rated 7-10
[2022-12-24 13:28] VITALS: BP 90/58; PULSE 74; RESP 16; TEMP 35.7; O2SAT 98
[2022-12-24 20:39] VITALS: BP 134/78; PULSE 72; RESP 18; TEMP 36.7; O2SAT 97
[2022-12-24] MEDS: traZODone HCL 50 MG TABLET 100 MG PO (21:18)
[2022-12-24] MEDS: ATORVASTATIN 40 MG TABLET PO (21:18)
[2022-12-24 21:19] VITALS: PULSE 72
[2022-12-24] MEDS: risperiDONE 1 MG TABLET PO (21:19)
[2022-12-24] MEDS: VENLAFAXINE HCL XR 75 MG CAP.ER.24H 150 MG PO (21:19)
[2022-12-24] MEDS: METOPROLOL SUCCINATE EXT REL 12.5 MG TABCR 37.5 MG PO (21:19)
[2022-12-25 03:59] VITALS: BP 147/78; PULSE 69; RESP 18; TEMP 36.4; O2SAT 97
[2022-12-25] MEDS: CEPHALEXIN 500 MG CAPSULE PO ×2 (10:04→12:18)
[2022-12-25] MEDS: HYOSCYAMINE SULFATE 0.125 MG TABLET SUBLINGUAL ×2 (10:04→15:44)
[2022-12-25] MEDS: busPIRone HCL 5 MG TABLET 15 MG PO (10:04)
[2022-12-25] MEDS: PANTOPRAZOLE 40 MG TABLET PO (10:04)
[2022-12-25] MEDS: DOCUSATE SODIUM 100 MG CAPSULE PO (10:04)
[2022-12-25] MEDS: GABAPENTIN 300 MG CAPSULE BY MOUTH ×2 (10:04→12:18)
[2022-12-25 10:05] VITALS: BP 145/86; PULSE 74; RESP 16; TEMP 36.3; O2SAT 98
[2022-12-25] MEDS: SODIUM CHLORIDE 0.9% IV 1,000 ML 100 ML IV CONT (10:05)
--- NOTE | 2022-12-25 13:07 | WPDUROPN2 ---
Progress Note: A&P Assessment and Plan (1) S/P TURP (transurethral resection of prostate): Code(s): Z90.79 - Acquired absence of other genital organ(s) Status: Acute Assessment and Plan: Ok to discharge home with jara catheter, ok to change to a leg bag. Subjective Subjective Date/Time Seen: 12/25/22 13:07 Post Op day: 2 Interval history: S/P Cystoscopy, removal of displaced UroLift amol with cold cup, fulguration of prostate. Patient doing well today, sitting up in the chair. CBI off, urine is clear to light pink. Patient tolerating diet and activity well, he has no pain. Review of Systems Cardiovascular: Cardiovascular: Denies chest pain Respiratory: Respiratory: Reports no additional respiratory complaints Gastrointestinal: Gastrointestinal: Denies abdominal pain, Denies fecal incontinence, Denies nausea and Denies vomiting Genitourinary: Genitourinary: Denies hematuria, Denies dysuria, Denies flank pain, Denies urinary frequency, Denies urinary hesitancy, Denies urinary incontinence and Denies urinary urgency Exam Const: General: cooperative and comfortable Resp: Effort & Inspection: normal respiratory effort Cardio: Rate: regular rate GI: GI Palp: Yes Soft to palpation and No Tenderness to palpation present (GI) : General: Yes no CVA tenderness Urinary Catheter: Urinary Catheter: patent and draining and urine clear Extrem: Right lower extremity: no edema Left lower extremity: no edema Objective Data Vital Signs Vital Signs: Vital Signs - 24 hr 12/24/22 13:28 12/24/22 20:39 12/24/22 21:19 Temperature 96.2 F L 98.0 F Pulse Rate 74 72 72 Respiratory Rate 16 18 Blood Pressure 90/58 L 134/78 Pulse Oximetry 98 97 Oxygen Delivery 12/24/22 21:10 12/25/22 03:59 12/25/22 10:05 Temperature 97.6 F 97.3 F L Pulse Rate 69 74 Respiratory Rate 18 16 Blood Pressure 147/78 H 145/86 H Pulse Oximetry 97 98 Oxygen Delivery Room Air 12/25/22 10:15 Temperature Pulse Rate Respiratory Rate Blood Pressure Pulse Oximetry Oxygen Delivery Room Air Intake/Output Intake/Output: Intake & Output 12/22/22 12/23/22 12/24/22 12/25/22 23:59 23:59 23:59 23:59 Intake Total 6740 2460 990 120 Output Total 75473 2300 1850 900 Balance -3368 027 -459 -827 Meds/Results Medications: Active Medications Generic Name Dose Route Start Last Admin Trade Name Freq PRN Reason Stop Dose Admin Hydrocodone Bitart/Acetaminophen 1 tab 12/22/22 16:21 12/23/22 08:51 Hydrocodone/Acetaminophen (*Crx) 5-325 Mg Tablet PO 1 tab Q4H PRN Administration Pain Rated 1-6 Atorvastatin Calcium 40 mg 12/22/22 21:00 12/24/22 21:18 Atorvastatin 40 Mg Tablet PO 40 mg QHS MARANDA Administration Buspirone HCl 15 mg 12/23/22 09:00 12/25/22 10:04 Buspirone Hcl 5 Mg Tablet PO 15 mg DAILY MARANDA Administration Cephalexin HCl 500 mg 12/23/22 13:00 12/25/22 12:18 Cephalexin 500 Mg Capsule PO 500 mg QID MARANDA Administration Docusate Sodium 100 mg 12/22/22 21:00 12/25/22 10:04 Docusate Sodium 100 Mg Capsule PO 100 mg Q12HR MARANDA Administration Gabapentin 300 mg 12/22/22 17:00 12/25/22 12:18 Gabapentin 300 Mg Capsule BY MOUTH 300 mg TID MARANDA Administration Hyoscyamine 0.125 mg 12/22/22 16:21 12/25/22 10:04 Hyoscyamine Sulfate 0.125 Mg Tablet SUBLINGUAL 0.125 mg Q6H PRN Administration Bladder Spasm Sodium Chloride 1,000 mls @ 100 mls/hr 12/25/22 08:35 12/25/22 10:05 Normal Saline Iv IV CONT 100 mls/hr .Q10H MARANAD Administration Metoprolol Succinate 37.5 mg 12/22/22 21:00 12/24/22 21:19 Metoprolol Succinate Ext Rel 12.5 Mg Tabcr PO 37.5 mg HS MARANDA Administration Morphine Sulfate 2 mg 12/22/22 16:21 Morphine Sulfate (*Crx) 2 Mg/Ml Inj IV PUSH Q2H PRN Pain Rated 7-10 Naloxone HCl 0.1 mg 12/22/22 16:21 Naloxone Hcl 0.4 Mg/Ml Vial IV PUSH Q2M PRN Opiate Rever
[2022-12-25 14:03] VITALS: BP 121/80; PULSE 76; RESP 18; TEMP 36.1; O2SAT 100
--- NOTE | 2022-12-30 09:21 | PM.DS ---
DS: Admitting Diagnosis Discharge Date 12/25/22 Admitting Diagnosis BPH DS: Discharge Diagnosis Discharge Diagnosis Plan BPH DS: Summary Hospital Course Hospital Course: The patient underwent a Cystoscopy, removal of displaced UroLift amol with cold cup, fulguration of prostate on 12/22/[address] Hagan. He tolerated the procedure well, and was sent to recovery in stable condition, then to the floor for further observation. He was tolerating pain, diet and activity well post operative day one, but he continued to bleed and needed CBI for two more days. Eventually his post op bleeding stopped on 12/25/22 without CBI and he was discharged home with a regular diet, to resume home medications except NSAID's or vitamins until cath removal appointment. He is to resume activity as tolerated without lifting > 20lbs. Time spent discussing smoking cessation with patient: more than 10 minutes Status at Discharge Functional status at discharge: independent ambulation Overall status at discharge: patient is progressing back to baseline Time Spent with Patient Time attestation: Total time spent providing and/or coordinating discharge services: Time spent: Less than 30 minutes Exam Const: General: cooperative and comfortable Resp: Effort & Inspection: normal respiratory effort GI: GI Palp: Yes Soft to palpation and No Tenderness to palpation present (GI) : General: Yes no CVA tenderness Urinary Catheter: Urinary Catheter: patent and draining and urine clear Extrem: Right lower extremity: no edema Left lower extremity: no edema Discharge Plan Discharge Attending physician on discharge: Ramo Hagan Consulting providers: Antonio Mathew Discharging Clinician: Zully Maki Anticipated Discharge Date/Time: 12/25/22 10:01 Patient Disposition: Home, Self-Care Activity: may shower Diet: as tolerated Discharge Instructions: Follow up for a voiding trial and catheter removal on Wednesday, at 9:15am with Dr. Hagan. If you develop heavy bleeding in your urine, a fever of 102 or higher, or your catheter stops draining call the office or go to the ER. Patient Instructions: Clopidogrel (By mouth), Jung Catheter Placement and Care (GEN) Stand Alone Forms: General Discharge Instructions Follow-up/Referrals: Ramo Hagan MD [Physician] - Discharge Medications: New hyoscyamine sulfate [Anaspaz] 0.125 mg Tablet,Disintegrating 0.125 mg sublingual Q6H PRN (Reason: Bladder Spasm) Qty: 20 0RF cephalexin 500 mg Capsule 500 mg PO BID Qty: 14 0RF Continued pantoprazole 40 mg tablet,delayed release (DR/EC) 40 mg PO DAILY Qty: 60 0RF fludrocortisone 0.1 mg tablet 0.05 mg PO DAILY Qty: 30 1RF Rx Instructions: upon arising in the morning atorvastatin 40 mg tablet 40 mg PO QHS trazodone 100 mg tablet 100 mg PO HS metoprolol succinate 25 mg tablet extended release 24 hr 37.5 mg PO DAILY Qty: 45 5RF Patient Comments: TAKES AT HS sulfamethoxazole-trimethoprim 800-160 mg tablet 1 tablet PO DAILY potassium 20 mg Tablet,Chewable 10 mg PO DAILY risperidone [Risperdal] 1 mg tablet 1 mg PO QHS Qty: 30 5RF Hold Instructions: .Provider Order venlafaxine 150 mg capsule,extended release 24hr 150 mg PO HS Qty: 90 1RF buspirone 15 mg tablet 15 mg PO DAILY Qty: 180 1RF gabapentin [Neurontin] 300 mg Capsule 300 mg BYMOUTH TID Qty: 90 0RF Held clopidogrel [Plavix] 75 mg tablet 75 mg PO DAILY Date of admission: 12/24/22 13:56 Primary Care Provider: Sallie Moore Admitting Provider: Ramo Hagan Attending physician on admission: Zully Maki Condition: Improved
== END 2022-12-25 15:45 | disposition home or self-care (01) | DRG 667 ==
LOC: ANHSURGERY 14:23 → ANH2MED 12-25 10:13
PROVIDERS: Admitting Provider Urology; PCP Family Medicine; Visit Provider Nurse Practitioner Adult Health
PROC: 0V508ZZ Destruction of Prostate, Via Natural or Artificial Opening Endoscopic (ICD-10-PCS; CPT 52352; principal; 2022-12-22 12:00)
DX: T83.428A Displacement of other prosthetic devices, implants and grafts of genital tract, initial encounter (principal); N40.1 Benign prostatic hyperplasia with lower urinary tract symptoms; R39.15 Urgency of urination; Z85.46 Personal history of malignant neoplasm of prostate; Z90.79 Acquired absence of other genital organ(s)
CPT/HCPCS: 36415; 76775; 80048; 85014; 85018; A9270; C1769; J0690; J1100; J2250; J2405; J2704; J3010; J7030; J7120

== ENCOUNTER 2023-09-27 21:13 | Emergency (ER) | payer MEDICARE, SELFPAY ==
--- NOTE | ~2023-09-27 | XR_ITS ---
XR chest 1V portable Ordering provider: Radha Van PA-C History: 68 years Male with . dyspnea, syncope . Comparison: July 24, 2022 FINDINGS: MEDIASTINUM: The cardiac silhouette is not enlarged. Left bipolar pacemaker. LUNGS: No infiltrates, effusions or pneumothorax. OTHER: No free air under the diaphragm. Postoperative changes in the spine. IMPRESSION: No acute cardiopulmonary pathology. Reviewed, dictated and finalized at location A.
--- NOTE | ~2023-09-27 | CT_ITS ---
CT cervical spine wo con Ordering provider: Radha Van PA-C History: . fall, head injury . Comparison: None. Technique: CT of the cervical spine was performed without contrast. Sagittal and coronal reformatted images were also obtained and reviewed. Automated exposure control and iterative reconstruction summer hnique were employed. The dose-length product was 284.53 mGy-cm. FINDINGS: Artifacts are seen at multiple levels. VERTEBRAE: No subluxation or acute fracture. The occipital condyles are intact. Postoperative change s are seen in the cervical and thoracic area. DISC SPACES: Multilevel narrowing of the disc spaces. Multilevel intervertebral foraminal narrowing. PARASPINOUS SOFT TISSUES: Normal. IMPRESSION: No definite fractures seen. Reviewed, dictated and finalized at location A. IMPRESSION: No definite fractures seen.
--- NOTE | ~2023-09-27 | CT_ITS ---
CT brain wo con Ordering provider: Radha Van PA-C History: 68 years Male with . fall, head injury . Comparison: None. Technique: CT of the head without contrast. Radiation reduction technique utilized. DLP is 605.33 mGy . FINDINGS: BRAIN PARENCHYMA AND CSF SPACES: Epidural hematoma is seen in the right occipital area which measures 7.8 x 3.2x 2.7 cm hypodense areas are seen in this hematoma which may indicate active bleeding. CSF hygroma is seen in the right frontal area and the right temporal area. Subdural hematoma also seen po steriorly in the frontal lobe area with a thickness of 0.8 cm. Subdural extension is also seen in the right temporal lobe and right occipital lobe inferiorly. Midline shift is seen to the left of about 1 cm. Effacement of the sulci in the right cerebral hemisphere is noted. Effacement of the right late ral ventricle is also seen. VISUALIZED PARANASAL SINUSES: Well aerated. MASTOIDS: Well aerated. BONES: The bones appear intact. SOFT TISSUES: Visualized nasopharynx is normal. Superficial soft tissues are normal. IMPRESSION: Large right occipital epidural hematoma with subdural hematoma seen in the right frontal and temporal areas. Right to left midline shift is also noted of about 1 cm. Hypodense area seen in the epidural collection may indicate active bleeding. Effacement of the sulci in the right cerebral hemisphere and effacement of the right lateral ventricl e is seen. CSF hygroma is seen in the right frontal lobe area Dr. Janet Van was notified with the result of the patient at 11:56 PM on September 27, 2023 Reviewed, dictated and finalized at location A. IMPRESSION: Large right occipital epidural hematoma with subdural hematoma seen in the righ t frontal and temporal areas. Right to left midline shift is also noted of abou t 1 cm. Hypodense area seen in the epidural collection may indicate active blee ding. Effacement of the sulci in the right cerebral hemisphere and effacement of the right lateral ventricle is seen. CSF hygroma is seen in the right frontal lobe area Dr. Janet Van was notified with the result of the patient at 11:56 PM on September 27, 2023
--- NOTE | ~2023-09-27 | CT_ITS ---
CT lumbar spine wo con Ordering provider: Radha Van PA-C History: 68 years Male with . fall . Comparison: None. Technique: CT lumbar spine without contrast. Automated exposure control and iterative reconstruction technique were employed. The dose-length product was 637.50 mGy-cm. FINDINGS: Artifacts are seen at multiple levels. VERTEBRAE: Normal height and alignment. No subluxation or visible acute fracture. Postoperative north es are noted. Degenerative changes of the spine are seen. DISC SPACES: Multilevel narrowing go disc spacers seen at the level of L5-S1. PARASPINOUS SOFT TISSUES: Mild atheromatous disease of the abdominal aorta. Diffuse sacroiliac joints. IMPRESSION: No acute osseous abnormality. Reviewed, dictated and finalized at location A.
--- NOTE | 2023-09-27 21:19 | ECG_ITS ---
Test Date: 2023-09-27 21:29:34 Measurements Intervals [place] Rate: 82 P: 55 CO: 150 QRS: 48 QRSD: 86 T: 29 QT: 378 QTc: 444 Interpretive Statements SINUS RHYTHM NONSPECIFIC T-WAVE ABNORMALITY No previous ECG available for comparison Electronically Signed On 09-28-2023 13:31:59 CDT by Heydi Manjarrez M.D.
[2023-09-27 21:21] VITALS: BP 87/59; PULSE 87; RESP 16; TEMP 36.4; O2SAT 100
[2023-09-27 21:38] VITALS: BP 104/80; PULSE 81; RESP 15; O2SAT 100
[2023-09-27 21:39] VITALS: PULSE 84
[2023-09-27 21:41] VITALS: O2SAT 100
--- NOTE | 2023-09-27 21:45 | PC.NURSE ---
Patient's family members states that ever since patient had back surgery his has not eaten much and has lacked an appetite. Per spouse patient had back surgery in August.
[2023-09-27 22:00] LABS: Basophils Absolute Auto 0.1 K/mm3 (0.0-0.1); Basophils Percent Auto 0.7 % (0.2-1.2); Eosinophils Absolute Auto 0.1 K/mm3 (0-0.3); Eosinophils Percent Auto 0.7 % (0-4.4); Hematocrit 33.6 % (42.0-52.0); Hemoglobin 10.6 g/dL (14.0-18.0); Immature Granulocyte Absolute 0.03 K/mm3 (0.00-0.031); Immature Granulocyte Percent A 0.4 % (0-0.5); Lymphocytes Absolute Auto 0.71 K/mm3 (0.9-3.2); Lymphocytes Percent Auto 10.3 % (18.3-44.2); Mean Corpuscular HGB Conc 31.5 g/dl (32-36); Mean Corpuscular Hemoglobin 28.3 pg (26-34); Mean Corpuscular Volume 89.8 fl (80-100); Mean Platelet Volume 9.7 fl (7.4-10.4); Monocytes Absolute Auto 0.6 K/mm3 (0.1-0.6); Monocytes Percent Auto 8.5 % (2.6-8.5); Neutrophils Absolute Auto 5.5 K/mm3 (1.3-6.7); Neutrophils Percent Auto 79.4 % (45.5-73.1); Platelet Count Result 183 k/mm3 (150-375); Red Blood Count 3.74 M/mm3 (4.6-6.20); Red Cell Distribution Width 15.1 % (11.5-14.5); White Blood Count 6.9 K/mm3 (4.5-10.0)
[2023-09-27 22:03] VITALS: BP 101/69; PULSE 78; RESP 18; O2SAT 99
[2023-09-27 22:11] LABS: Alanine Aminotransferase 16 U/L (6-50); Albumin Level 3.3 g/dL (3.5-5.1); Alkaline Phosphatase 106 U/L (38-126); Anion Gap 7 mmol/L (4-12); Aspartate Amino Transferase 22 U/L (17-59); Bilirubin,Total 0.6 mg/dL (0.2-1.3); Blood Urea Nitrogen 14 mg/dL (9-20); Carbon Dioxide 27 mmol/L (22-30); Chloride 104 mmol/L (98-107); Estimated CRCL calculation 58 ml/min; Estimated Glomerular Filt Rate > 60; Glucose 97 mg/dL (65-110); Potassium 3.2 mmol/L (3.4-5.0); Sodium 138 mmol/L (137-145)
[2023-09-27 22:32] VITALS: BP 103/69; PULSE 75; RESP 13; O2SAT 100
--- NOTE | 2023-09-27 22:52 | PC.NURSE ---
Patient advised nursing staff that his neck was starting to hurt very bad. Notified EDPs Dr. Beth and Dr. Rivero
--- NOTE | 2023-09-27 23:19 | ED.SYNCOPE ---
HPI - Syncope General Chief Complaint: Syncope <Radha Van PA-C - Last Filed: 09/28/23 02:36> Stated Complaint: syncope <Radha Van PA-C - Last Filed: 09/28/23 02:36> Time Seen by Provider: 09/27/23 23:03 <Radha Van PA-C - Last Filed: 09/28/23 02:36> History of Present Illness HPI narrative: 68-year-old male with a history of GERD, orthostatic hypotension, neuropathy, hyperlipidemia, hypertension, nonsustained V-tach, s/p pacemaker placement, recent lumbar fusion on August 18 and August 23 at [facility] by Dr. Lock presents to the emergency department for multiple syncopal episodes prior to arrival. Patient states he got up to go to the bathroom when he felt dizzy and lightheaded and passed out. States he fell backward and hit his head. EMS was called by his who was present and states when the patient was picked up off of the ground he again lost consciousness. Patient's states she did not notice any seizure activity but the patient did have an episode of urinary incontinence. he is reporting neck pain but denies other injuries acquired. He denies headache, vision changes, focal numbness or weakness, abdominal pain, nausea or vomiting, chest pain. He is reporting some shortness of breath and states it feels like he has to take a few deep breaths intermittently. He reports some lower extremity edema which is new since his surgery in august. his and son is at bedside who report the patient has had decreased p.o. intake since his surgery as well. Patient's states he is only drinking 8 oz bottle of Ensure today. The patient also notes that he has had diarrhea 3-4 episodes of diarrhea per day for multiple months. Patient states he has had episodes many years ago where he would pass out and that is the reason his pacemaker was placed. His law clerk was Dr. Valdez before she retired. he is unsure who his new law clerk is. <Radha Van PA-C - Last Filed: 09/28/23 02:36> Related Data Home Medications: Home Medications Medication Instructions Recorded Confirmed atorvastatin 40 mg tablet 40 mg PO QHS 07/20/22 09/22/23 clopidogrel 75 mg tablet (Plavix) 75 mg PO DAILY 08/18/22 09/22/23 <Radha Van PA-C - Last Filed: 09/28/23 02:36> Allergies/Adverse Reactions: Allergies Allergy/AdvReac Type Severity Reaction Status Date / Time bee venom protein (honey bee) Allergy Intermediate Nausea and Verified 09/27/23 21:18 Vomiting iodine Allergy Intermediate FACIAL Verified 09/27/23 21:18 SWELLING,ITCHING NSAIDS (Non-Steroidal AdvReac Ulcers Verified 09/27/23 21:18 Anti-Inflamma Contrast Media Allergy Intermediate FACIAL Uncoded 09/22/23 14:20 SWELLING, ITCHING, AND REDNESS <Radha Van PA-C - Last Filed: 09/28/23 02:36> Review of Systems Review of Systems: CONSTITUTIONAL: Denies fever, chills, or sweats. EYES: Denies visual changes, redness, or discharge. ENT: Denies rhinorrhea, congestion, sore throat, or otalgia. CARDIOVASCULAR: Denies chest pain, palpitations, or edema. RESPIRATORY: Denies cough or dyspnea. GASTROINTESTINAL: see HPI GENITOURINARY: Denies dysuria or hematuria. SKIN: Denies rash or itching. MUSCULOSKELETAL: See HPI NEUROLOGIC: Denies headache, numbness, or weakness. PSYCHIATRIC: Denies anxiety or depression. <Radha Van PA-C - Last Filed: 09/28/23 02:36> [facility] Past Medical History Medical History: Medical History Anxiety Arthritis Bronchitis Cataracts, bilateral Coarse tremors Constipation CVA (cerebrovascular accident) DDD (degenerative disc disease) Depression Diverticulitis Eczema Erectile dysfunction Fall (on) (from) other stairs and steps, initial encounter GERD (gastroesophageal reflux disease) H/O non anemic vitamin B12 deficiency H/O prostate cancer 44 radiation treatments Hiatal herni
[2023-09-27] MEDS: SODIUM CHLORIDE 0.9% IV 1,000 ML 999 ML IV CONT (23:28)
[2023-09-27] MEDS: MORPHINE SULFATE (*CRX) 2 MG/ML INJ IV PUSH (23:28)
[2023-09-28] MEDS: MORPHINE SULFATE (*CRX) 2 MG/ML INJ IV PUSH
[2023-09-28 00:15] LABS: Lactic Acid Reflex 0.9 mmol/L (0.7-2.0); Magnesium 1.9 mg/dL (1.6-2.3)
[2023-09-28 00:16] VITALS: BP 115/60; PULSE 78; RESP 12; O2SAT 99
[2023-09-28 00:16] LABS: INR 1.1; Prothrombin Time 14.7 Seconds (11.1-14.7)
[2023-09-28 00:28] LABS: NT Pro B Type Natriuretic Pept 246 pg/mL (19.9-100); Troponin I < 0.012 ng/mL (0.000-0.034)
[2023-09-28 00:31] VITALS: BP 114/63; PULSE 77; RESP 12; O2SAT 99
[2023-09-28 00:33] LABS: D Dimer 6.01 ug/mL (<0.48)
[2023-09-28 00:50] VITALS: BP 142/80; PULSE 89; RESP 13; O2SAT 100
== END 2023-09-28 01:12 | disposition short-term general hospital (02) ==
PROVIDERS: Student in an Organized Health Care Education/Training Program; Emergency Provider Physician Assistant; PCP Family Medicine
DX: S06.5XAA Traumatic subdural hemorrhage with loss of consciousness status unknown, initial encounter (principal); R55 Syncope and collapse; R06.02 Shortness of breath; I10 Essential (primary) hypertension; E78.5 Hyperlipidemia, unspecified; E53.8 Deficiency of other specified B group vitamins; E55.9 Vitamin D deficiency, unspecified; G62.9 Polyneuropathy, unspecified; G47.30 Sleep apnea, unspecified; M81.0 Age-related osteoporosis without current pathological fracture; K21.9 Gastro-esophageal reflux disease without esophagitis; F41.9 Anxiety disorder, unspecified; Z95.0 Presence of cardiac pacemaker; Z96.659 Presence of unspecified artificial knee joint; Z86.73 Personal history of transient ischemic attack (TIA), and cerebral infarction without residual deficits; Z85.46 Personal history of malignant neoplasm of prostate; Z92.3 Personal history of irradiation; Z87.01 Personal history of pneumonia (recurrent); Z87.891 Personal history of nicotine dependence; Z87.440 Personal history of urinary (tract) infections; Z98.1 Arthrodesis status; Z90.79 Acquired absence of other genital organ(s); Z90.49 Acquired absence of other specified parts of digestive tract; Z79.899 Other long term (current) drug therapy; Z79.02 Long term (current) use of antithrombotics/antiplatelets; R94.31 Abnormal electrocardiogram [ECG] [EKG]; G96.09 Other spinal cerebrospinal fluid leak; W18.39XA Other fall on same level, initial encounter
CPT/HCPCS: 36415; 70450; 71045; 72125; 72131; 80053; 83605; 83735; 83880; 84484; 85025; 85380; 85610; 85730; 93005; 96361; 96374; 96376; 99285; J2270; J7030; L0140